=== PATIENT | male | born 1955 | race Caucasian/White ===

== ENCOUNTER → 2017-04-14 | Outpatient (CLI) | payer OTHER ==
[~2017-04-14] MED LIST: ASPI81TA28 PO; ATOR-24 PO; ATV5 PO; CYCL5TAB PO; FAMO20TA11 PO; Ibuprofen PO; METO25TA56 PO; PROC1TAB18 PO
[2017-04-14 15:15] LABS: BLOOD UREA NITROGEN 16 mg/dl (7-18); BUN/CREATININE RATIO 18.6 (10-20); CALCIUM 8.9 mg/dl (8.5-10.1); CARBON DIOXIDE 27 mmol/L (21-32); CHLORIDE 109 mmol/L (98-107); CREATININE 0.87 mg/dl (0.60-1.40); GLUCOSE 97 mg/dl (70-99); POTASSIUM 4.1 mmol/L (3.5-5.1); SODIUM 144 mmol/L (136-145)
[2017-04-14 15:18] LABS: CHOLESTEROL 168 mg/dl (0-200); CHOLESTEROL/HDL RATIO 4.3; HDL CHOLESTEROL 39 mg/dl; TRIGLYCERIDES 141 mg/dl (0-150); VERY LOW DENSITY LIPOPROT CALC 28 mg/dl
== END | disposition home or self-care (01) ==
LOC: C.LABSPEC 12:56
PROVIDERS: ATTEND Internal Medicine
DX: I25.10 Atherosclerotic heart disease of native coronary artery without angina pectoris (principal); E78.5 Hyperlipidemia, unspecified; Z00.00 Encounter for general adult medical examination without abnormal findings

== ENCOUNTER → 2017-05-26 | Outpatient (CLI) | payer OTHER | END | disposition home or self-care (01) | LOC: C.LABSPEC 15:03 | PROVIDERS: ATTEND Internal Medicine | DX: Z12.11 Encounter for screening for malignant neoplasm of colon (principal) ==

== ENCOUNTER → 2017-07-07 | Outpatient (CLI) | payer OTHER ==
--- NOTE | 2017-07-07 12:49 | DIAGNOSTIC IMAGING REPORT ---
PET/CT CLINICAL HISTORY: Head and neck cancer. TECHNIQUE: A PET/CT was performed from the skull base through the upper thighs following intravenous injection of 11.78 mCi of F 18 FDG IV. The injection was performed at 9:26 AM on July 07, 2017 and imaging began at 10:33 AM on July 07, 2017. Unenhanced CT was performed for attenuation correction purposes and anatomic localization. COMPARISON STUDY: PET/CT July 10, 2016. FINDINGS: Head and neck: No abnormal FDG uptake is identified within the neck. There is evidence for a previous right neck dissection. Postoperative appearance is unchanged since exam of July 10, 2016. Chest: No enlarged thoracic lymph nodes are present. The previously described FDG avid precarinal lymph node is stable in size. This lymph node is not enlarged. This lymph node has minimal FDG uptake with an SUV max of 2 which has diminished since prior exam of July 10, 2016 when the SUV max was 2.9. Mild radiotracer uptake within the AP window has also diminished. SUV max is now 2.7. It previously measured 3.6. There has been interval development of mild multifocal airspace opacity within the right upper lobe with an SUV max of 1.8. Underlying emphysema is noted. There is no pneumothorax or pleural effusion. A 4 mm perifissural nodule along the minor fissure is unchanged from earlier studies. This is benign. Abdomen and Pelvis: No abnormal FDG uptake is identified within the abdomen or the pelvis. There is no abdominal or pelvic lymphadenopathy. The abdominal aorta is ectatic, measuring 2.6 cm. This is unchanged. This extensive atherosclerotic plaque. Musculoskeletal: No suspicious skeletal uptake is identified. IMPRESSION: 1. No evidence for recurrent malignancy. 2. Mild precarinal and AP window FDG uptake which is diminished since exam of July 10, 2016. This is of doubtful significance but can be assessed on subsequent studies. 3. Interval development of mild multifocal airspace opacity within the right upper lobe with mild FDG uptake. This favors a mild infectious process. A follow up chest CT in 3 months to ensure resolution is recommended. Electronically signed by: Bret Ruiz M.D. 07/07/2017 12:48 PM Dictated Date/Time: 07/07/2017 12:33 PM
== END | disposition home or self-care (01) ==
LOC: C.PET 08:26
PROVIDERS: ATTEND Dentist Oral and Maxillofacial Pathology
DX: C76.0 Malignant neoplasm of head, face and neck (principal)

== ENCOUNTER → 2017-11-24 | Outpatient (CLI) | payer OTHER ==
[2017-11-24 15:03] LABS: BLOOD UREA NITROGEN 16 mg/dl (7-18); CALCIUM 9.3 mg/dl (8.5-10.1); CARBON DIOXIDE 29 mmol/L (21-32); CHOLESTEROL 155 mg/dl (0-200); CREATININE 0.84 mg/dl (0.60-1.40); GLUCOSE 99 mg/dl (70-99); LDL CHOLESTEROL (DIRECT) 107 mg/dl; POTASSIUM 4.5 mmol/L (3.5-5.1); SODIUM 141 mmol/L (136-145)
== END | disposition home or self-care (01) ==
LOC: C.LABSPEC 12:24
PROVIDERS: ATTEND Internal Medicine
DX: E78.5 Hyperlipidemia, unspecified (principal); I25.10 Atherosclerotic heart disease of native coronary artery without angina pectoris

== ENCOUNTER → 2018-06-06 | Outpatient (CLI) | payer OTHER ==
[2018-06-06 09:21] LABS: BLOOD UREA NITROGEN 14 mg/dl (7-18); CALCIUM 8.9 mg/dl (8.5-10.1); CARBON DIOXIDE 29 mmol/L (21-32); CHOLESTEROL 171 mg/dl (0-200); CREATININE 0.88 mg/dl (0.60-1.40); GLUCOSE 91 mg/dl (70-99); LDL CHOLESTEROL (DIRECT) 107 mg/dl; SODIUM 140 mmol/L (136-145)
== END | disposition home or self-care (01) ==
LOC: C.LAB 08:28
PROVIDERS: ATTEND Internal Medicine
DX: Z00.00 Encounter for general adult medical examination without abnormal findings (principal); E78.5 Hyperlipidemia, unspecified; I25.10 Atherosclerotic heart disease of native coronary artery without angina pectoris

== ENCOUNTER → 2018-06-09 | Outpatient (CLI) | payer OTHER ==
[2018-06-15 18:03] LABS: FECAL OCCULT BLOOD #1 NEGATIVE (NEGATIVE); FECAL OCCULT BLOOD #2 NEGATIVE (NEGATIVE); FECAL OCCULT BLOOD #3 NEGATIVE (NEGATIVE)
== END | disposition home or self-care (01) ==
LOC: C.LABSPEC 17:16
PROVIDERS: ATTEND Internal Medicine
DX: Z12.11 Encounter for screening for malignant neoplasm of colon (principal)

== ENCOUNTER 2021-03-03 04:00 | Inpatient (IN) ==
[2021-03-03] MEDS ORDERED: SODIUM CHLORIDE 0.9% 500 ML IV ONE (04:42)
[2021-03-03] MEDS ORDERED: ACETAMINOPHEN 325 MG TAB PO STA (04:42)
[2021-03-03] MEDS ORDERED: ONDANSETRON INJ 2 MG/ML 2 ML VIAL IV STA (05:04)
--- NOTE | 2021-03-03 05:04 | Emergency Department Note ---
Impression & Plan Hypoxia, Pneumonia due to COVID-19 virus ED Provider Note NAME: ELVIS SAM JR AGE: 66 SEX: M ARRIVES VIA: Walk-In INFORMANT: Patient ED PROVIDER(S): Joan Lemus DO CHIEF COMPLAINT: Chest pain and shortness of breath PLAN: Disposition: Admitted to the [facility] service Condition: Guarded MEDICAL DECISION MAKING: This is a 66-year-old male patient who presents to the emergency department with increasing shortness of breath and chest discomfort. The patient had an O2 saturation in the 70/80% range upon presentation to the emergency department. The patient did have a Covid exposure at work. He has not yet received the Covid vaccine. Triage Nursing notes reviewed and agree with them. Prior medical records reviewed Vital Signs: reviewed and remarkable for hypoxia, tachycardia, and fever Differential diagnosis: COVID-19, pneumonia, PE, bronchitis ER treatment provided: Tylenol, IV normal saline, IV Decadron Diagnostics interpreted by me: ECG: Normal sinus rhythm at a rate of [address] segment elevation or signs of ischemia. There is no ectopy. Cardiac Monitoring: Normal sinus rhythm at a rate of 99. Laboratory studies: See below Imaging studies: As per my interpretation Portable chest x-ray: Bilateral airspace opacities with the left being greater than the right. This looks concerning for Covid pneumonia. HPI: 66/M arrives for evaluation of shortness of breath and chest discomfort. Patient states that he developed a sensation of shortness of breath and a chest cold yesterday morning. This seemed to worsen throughout the day. Tonight, the patient felt as if he could not sleep because he was becoming increasingly short of breath. The patient admits that he does not wear a mask at work and one of his coworkers did have COVID-19. The patient describes having a sensation in his chest as if he has a cold in his chest. He denies any associated nausea or diaphoresis. He denies any previous history of bronchitis or pneumonia. ROS: See above HPI for pertinent positives & negatives. A total of 10 systems reviewed and were otherwise negative. PAST MEDICAL HISTORY:Prostate enlargement PAST SURGICAL HISTORY:See Below FAMILY HISTORY:See Below SOCIAL HISTORY:See Below HOME MEDICATIONS:See list ALLERGIES:See list VITALS:See Below PHYSICAL EXAMINATION: HEENT: Head - normocephalic and atraumatic Pupils are equal, round, and reactive to light. Extraocular eye muscles are intact, and sclera are anicteric. Nose - moist nasal mucosa without discharge. Mouth - moist buccal mucosa. Oropharynx is nonerythematous and there is no tonsillar exudate or edema noted. Neck: Supple; no JVD, nuchal rigidity, cervical lymphadenopathy, or auscultated bruits. Heart: Tachycardic rate and regular rhythm. There is a normal S1 and S2 with no murmurs, clicks, or gallops appreciated. Lungs: Clear to auscultation bilaterally with no wheezes, rales, or rhonchi. Abdomen: Soft, completely nontender, nondistended, with good bowel sounds. There are no palpable pulsatile masses or hepatosplenomegaly. There is no guarding, rigidity, or rebound noted. Extremities: No evidence of cyanosis, clubbing, or edema. There are easily palpable peripheral pulses. Skin: warm and dry with good turgor and no rashes. ED COURSE: Times/Reassessments: 0425: The patient was evaluated in room C10. A septic protocol was performed. I do not complete PPE as the patient was in Covid precautions based on his history. An order was placed for continuous cardiac monitoring. The patient was in a sinus tachycardia at a rate of 102. A twelve-lead EKG was obtained. The patient was bolused with IV normal saline solution. He was given oral Tylenol for his fever. A chest x-ray was obtained. 0500: Patient appears comfortable at this time on supplemental oxygen. 0535 I reevaluated the patient at this time. His O2 saturations remained stable on supplemental oxygen. I reviewed the laboratory studies resulted so far with the patient. He was anxious to drink water. The patient was given IV Decadron. 0545: I discussed the case with Dr. Pinon from the [facility] hospitalist group and they will evaluate for further management. 0600: I spoke with patient again and answer some questions for him. He is comfortable at this time. I have personally spent greater than 70 minutes of critical care time in the direct management of this patient. This includes bedside care, interpretation of diagnostic studies, and testing, discussion with consultants, patient, and family members, and other required patient management activities. This 70 minutes is in excess of all separately billable procedures. Joan Lemus, DO Past Med/Surg History Medical History (Updated 03/03/21 @ 08:20 by Joan Lemus DO) Anxiety CAD (coronary artery disease) s/p ID [id number] with BMS x 2. Preserved EF. Was discharged from cardio in 2013, to follow-up only on PRN basis. 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 Urinary symptom or sign Surgical History H/O removal of neck cyst 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 History of appendectomy History of cardiac cath 2011 History of colonoscopy History of cystoscopy with stone basketing History of radical neck dissection for SCC History of tonsillectomy Hx of heart artery stent x2 (2011) Hx of inguinal hernia repair Left Family History Father Heart disease Mother FH: kidney cancer Other No family history of adverse response to anesthesia Social History Smoking Status: Former smoker Tobacco Type: Cigarettes Age Started Using Tobacco: 17; Age Quit Using Tobacco: 55; packs per day: 1; Years Smoked: 38; Second Hand Exposure: Yes; Hx Alcohol Use: No Hx Substance Use: No Preferred Language: Niuean Communication Ability: Effective Visual Impairment: No Limitations Hearing Ability: Normal Forensic Dna Analyst Required: No Beliefs That Will Affect Care: None marital status: Current Living Situation: Family Current Living Situation Comment: youngest daughter, her and two teenagers live with him current occupational status: employed How many Children do You have: 2 Feels Safe at Home: Yes Childhood Exposure to Second-Hand Smoke: Yes Diet Comment: sweat glands destroyed with RT, must drink water constantly and moisturize caffeine: Yes (tea 3 cups per day) during the past year weight has: remained stable Dental Care, Regularly: Yes Physical Activity Frequency: 3-4 Times per Week Physical Activity Frequency Comment: climbs stairs 300/day Seatbelt Use: always Sunscreen Use: Yes (irregularly, but stays out of the sun for the most part) Assistive Devices: Glasses Allergies Allergies Allergy/AdvReac Type Severity Reaction Status Date / Time pollen extracts Allergy Unknown Watery Verified 01/19/21 12:10 eyes, burning sinsus No Known Drug Allergies Allergy Verified 01/19/21 12:10 Home Meds Home Medications Medication Instructions Recorded Confirmed aspirin [Aspir-81] 81 mg PO QAM 10/30/18 03/03/21 atorvastatin 80 mg PO HS 10/30/18 03/03/21 baclofen 10 mg PO TID PRN 10/30/18 03/03/21 lorazepam 0.5 mg PO TID PRN 10/30/18 03/03/21 zinc 50 mg tablet 50 mg PO QAM 09/13/20 03/03/21 prednisone 5 mg tablet 5 mg PO DAILY 02/28/21 03/03/21 Previous Rx's Medication Instructions Recorded tamsulosin 0.4 mg capsule 0.4 mg PO BID #60 cap 01/02/21 hydrocodone 10 mg-acetaminophen 1 tab PO Q6H PRN #30 tab 01/18/21 325 mg tablet oxybutynin chloride 5 mg tablet 5 mg PO TID PRN #90 tab 02/13/21 nystatin 100,000 unit/mL oral 5 ml PO QID 10 Days #200 ml 02/20/21 suspension ampicillin 500 mg capsule 500 mg PO QID 10 Days #40 cap 02/23/21 tramadol 50 mg tablet 50 mg PO Q8H PRN #60 tab 02/28/21 Results & Data (ED) Vital Signs Vital Signs - 24 hr 03/03/21 04:08 03/03/21 04:30 03/03/21 05:00 Temperature 37.7 C H Temperature Source Temporal Artery Scan Pulse Rate 112 H 102 H 100 H Pulse Rate from SpO2 Sensor 102 H 100 H Respiratory Rate 18 22 22 Respiratory Effort / Characteristics Non-Labored Spontaneous Respiratory Depth Normal Respiratory Pattern Regular Blood Pressure 124/79 134/76 126/84 Blood Pressure Mean 94 95 98 Blood Pressure Position Sitting Pulse Oximetry 83 L 91 87 L Oxygen Delivery Method Room Air Nasal Cannula Room Air Oxygen Flow Rate 3 3 Sepsis Recent Fever Within 48 Hours Yes Sepsis New/Unexplained Change in Mental Status No Sepsis Action Taken by Nursing No Action Required 03/03/21 05:30 03/03/21 05:32 03/03/21 06:00 Temperature Temperature Source Pulse Rate 98 H 91 H Pulse Rate from SpO2 Sensor 98 H 90 Respiratory Rate 19 22 21 Respiratory Effort / Characteristics Respiratory Depth Respiratory Pattern Blood Pressure 130/88 139/94 Blood Pressure Mean 102 109 Blood Pressure Position Pulse Oximetry 92 91 98 Oxygen Delivery Method Nasal Cannula Nasal Cannula Oxymask Oxygen Flow Rate 3 4 10 Sepsis Recent Fever Within 48 Hours Sepsis New/Unexplained Change in Mental Status Sepsis Action Taken by Nursing 03/03/21 06:28 03/03/21 06:30 03/03/21 06:45 Temperature Temperature Source Pulse Rate 92 H 89 Pulse Rate from SpO2 Sensor 93 H 89 Respiratory Rate 22 20 20 Respiratory Effort / Characteristics Spontaneous Labored Short of Breath Respiratory Depth Respiratory Pattern Blood Pressure 134/84 126/81 Blood Pressure Mean 100 96 Blood Pressure Position Pulse Oximetry 98 97 96 Oxygen Delivery Method Oxymask Oxymask Oxymask Oxygen Flow Rate 10 10 10 Sepsis Recent Fever Within 48 Hours Sepsis New/Unexplained Change in Mental Status Sepsis Action Taken by Nursing 03/03/21 06:46 03/03/21 06:48 03/03/21 07:00 Temperature Temperature Source Pulse Rate 86 84 Pulse Rate from SpO2 Sensor 85 84 Respiratory Rate 12 12 Respiratory Effort / Characteristics Spontaneous Short of Breath Respiratory Depth Respiratory Pattern Blood Pressure 135/83 Blood Pressure Mean 100 Blood Pressure Position Pulse Oximetry 96 96 96 Oxygen Delivery Method Oxymask Oxygen Flow Rate 10 Sepsis Recent Fever Within 48 Hours Sepsis New/Unexplained Change in Mental Status Sepsis Action Taken by Nursing 03/03/21 07:01 03/03/21 07:15 03/03/21 07:30 Temperature Temperature Source Pulse Rate 82 86 88 Pulse Rate from SpO2 Sensor 83 86 87 Respiratory Rate 14 16 16 Respiratory Effort / Characteristics Respiratory Depth Respiratory Pattern Blood Pressure 121/83 140/83 Blood Pressure Mean 95 102 Blood Pressure Position Pulse Oximetry 96 96 95 Oxygen Delivery Method Oxygen Flow Rate Sepsis Recent Fever Within 48 Hours Sepsis New/Unexplained Change in Mental Status Sepsis Action Taken by Nursing 03/03/21 07:31 03/03/21 07:45 03/03/21 07:50 Temperature Temperature Source Pulse Rate 90 101 H 121 H Pulse Rate from SpO2 Sensor 91 H 101 H 101 H Respiratory Rate 16 20 27 H Respiratory Effort / Characteristics Respiratory Depth Respiratory Pattern Blood Pressure 146/95 H 133/86 Blood Pressure Mean 112 101 Blood Pressure Position Pulse Oximetry 94 92 94 Oxygen Delivery Method Oxygen Flow Rate Sepsis Recent Fever Within 48 Hours Sepsis New/Unexplained Change in Mental Status Sepsis Action Taken by Nursing 03/03/21 07:57 Temperature 37.1 C Temperature Source Oral Pulse Rate Pulse Rate from SpO2 Sensor Respiratory Rate Respiratory Effort / Characteristics Respiratory Depth Respiratory Pattern Blood Pressure Blood Pressure Mean Blood Pressure Position Pulse Oximetry Oxygen Delivery Method Oxygen Flow Rate Sepsis Recent Fever Within 48 Hours Sepsis New/Unexplained Change in Mental Status Sepsis Action Taken by Nursing Laboratory Data Result diagrams: 03/03/21 04:35 03/03/21 04:35 Lab Results 03/03/21 03/03/21 03/03/21 Range/Units 04:35 04:35 04:35 WBC 1.75 L (4.8-10.8) K/uL RBC 4.24 L (4.7-6.1) M/uL Hgb 12.8 L (14.0-18.0) g/dL Hct 37.0 L (42-52) % MCV 87.3 (80-100) fL MCH 30.2 (25-34) pg MCHC 34.6 (32-36) g/dL RDW Std Deviation 44.0 (36.4-46.3) fL RDW Coeff of Maikel 13.7 (11.5-14.5) % Plt Count 75 L (130-400) K/uL MPV 10.1 (7.4-10.4) fL Immature Gran % (Auto) 1.7 % Neut % (Auto) 73.7 % Lymph % (Auto) 12.6 % Bucks % (Auto) 10.9 % Eos % (Auto) 1.1 % Baso % (Auto) 0.0 % Neut # (Auto) 1.29 L (1.4-6.5) K/uL Lymph # (Auto) 0.22 L (1.2-3.4) K/uL Bucks # (Auto) 0.19 (0.11-0.59) K/uL Eos # (Auto) 0.02 (0-0.5) K/uL Baso # (Auto) 0.00 (0-0.2) K/uL Immature Gran # (Auto) 0.03 H (0.00-0.02) K/uL Platelet Estimate Decreased L (Normal) RBC Morphology Unremarkable PT 9.6 (9.0-12.0) Seconds INR 0.9 (0.9-1.1) APTT 28.2 (21.0-31.0) Seconds PTT Ratio 1.1 Sodium 143 (136-145) mmol/L Potassium 3.8 (3.5-5.1) mmol/L Chloride 112 H (98-107) mmol/L Carbon Dioxide 28 (21-32) mmol/L Anion Gap 3.0 (3-11) BUN 10 (7-18) mg/dl Creatinine 0.73 (0.6-1.4) mg/dl Est Cr Clr Drug Dosing 91.0 ml/min Est GFR ( Amer) 112.8 Est GFR (Non-Af Amer) 97.3 BUN/Creatinine Ratio 13.4 (10-20) Glucose 110 H (70-99) mg/dl Lactate (0.4-2.0) mmol/L Calcium 8.4 L (8.5-10.1) mg/dl Magnesium 1.9 (1.8-2.4) mg/dl Total Bilirubin 0.5 (0.2-1) mg/dl AST 42 H (15-37) U/L ALT 40 (12-78) U/L Alkaline Phosphatase 108 (45-117) U/L C-Reactive Protein (0-0.29) mg/dl Total Protein 6.1 L (6.4-8.2) gm/dl Albumin 2.8 L (3.4-5.0) gm/dl Globulin 3.3 (2.5-4.0) gm/dl Albumin/Globulin Ratio 0.8 L (0.9-2) COVID-19 Eval Order SARS-CoV-2 (PCR) (Negative) Influenza Type A (PCR) (Neg) Influenza Type B (PCR) (Neg) RSV (RT-PCR) (Neg) 03/03/21 03/03/21 03/03/21 Range/Units 04:35 04:35 04:43 WBC (4.8-10.8) K/uL RBC (4.7-6.1) M/uL Hgb (14.0-18.0) g/dL Hct (42-52) % MCV (80-100) fL MCH (25-34) pg MCHC (32-36) g/dL RDW Std Deviation (36.4-46.3) fL RDW Coeff of Maikel (11.5-14.5) % Plt Count (130-400) K/uL MPV (7.4-10.4) fL Immature Gran % (Auto) % Neut % (Auto) % Lymph % (Auto) % Bucks % (Auto) % Eos % (Auto) % Baso % (Auto) % Neut # (Auto) (1.4-6.5) K/uL Lymph # (Auto) (1.2-3.4) K/uL Bucks # (Auto) (0.11-0.59) K/uL Eos # (Auto) (0-0.5) K/uL Baso # (Auto) (0-0.2) K/uL Immature Gran # (Auto) (0.00-0.02) K/uL Platelet Estimate (Normal) RBC Morphology PT (9.0-12.0) Seconds INR (0.9-1.1) APTT (21.0-31.0) Seconds PTT Ratio Sodium (136-145) mmol/L Potassium (3.5-5.1) mmol/L Chloride (98-107) mmol/L Carbon Dioxide (21-32) mmol/L Anion Gap (3-11) BUN (7-18) mg/dl Creatinine (0.6-1.4) mg/dl Est Cr Clr Drug Dosing ml/min Est GFR ( Amer) Est GFR (Non-Af Amer) BUN/Creatinine Ratio (10-20) Glucose (70-99) mg/dl Lactate 0.8 (0.4-2.0) mmol/L Calcium (8.5-10.1) mg/dl Magnesium (1.8-2.4) mg/dl Total Bilirubin (0.2-1) mg/dl AST (15-37) U/L ALT (12-78) U/L Alkaline Phosphatase (45-117) U/L C-Reactive Protein 11.40 H (0-0.29) mg/dl Total Protein (6.4-8.2) gm/dl Albumin (3.4-5.0) gm/dl Globulin (2.5-4.0) gm/dl Albumin/Globulin Ratio (0.9-2) COVID-[address] Eval [address] CovFluRsv at [facility] SARS-CoV-2 (PCR) (Negative) Influenza Type A (PCR) (Neg) Influenza Type B (PCR) (Neg) RSV (RT-PCR) (Neg) 05/08/21 Range/Units 04:43 WBC (4.8-10.8) K/uL RBC (4.7-6.1) M/uL Hgb (14.0-18.0) g/dL Hct (42-52) % MCV (80-100) fL MCH (25-34) pg MCHC (32-36) g/dL RDW Std Deviation (36.4-46.3) fL RDW Coeff of Maikel (11.5-14.5) % Plt Count (130-400) K/uL MPV (7.4-10.4) fL Immature Gran % (Auto) % Neut % (Auto) % Lymph % (Auto) % Bucks % (Auto) % Eos % (Auto) % Baso % (Auto) % Neut # (Auto) (1.4-6.5) K/uL Lymph # (Auto) (1.2-3.4) K/uL Bucks # (Auto) (0.11-0.59) K/uL Eos # (Auto) (0-0.5) K/uL Baso # (Auto) (0-0.2) K/uL Immature Gran # (Auto) (0.00-0.02) K/uL Platelet Estimate (Normal) RBC Morphology PT (9.0-12.0) Seconds INR (0.9-1.1) APTT (21.0-31.0) Seconds PTT Ratio Sodium (136-145) mmol/L Potassium (3.5-5.1) mmol/L Chloride (98-107) mmol/L Carbon Dioxide (21-32) mmol/L Anion Gap (3-11) BUN (7-18) mg/dl Creatinine (0.6-1.4) mg/dl Est Cr Clr Drug Dosing ml/min Est GFR ( Amer) Est GFR (Non-Af Amer) BUN/Creatinine Ratio (10-20) Glucose (70-99) mg/dl Lactate (0.4-2.0) mmol/L Calcium (8.5-10.1) mg/dl Magnesium (1.8-2.4) mg/dl Total Bilirubin (0.2-1) mg/dl AST (15-37) U/L ALT (12-78) U/L Alkaline Phosphatase (45-117) U/L C-Reactive Protein (0-0.29) mg/dl Total Protein (6.4-8.2) gm/dl Albumin (3.4-5.0) gm/dl Globulin (2.5-4.0) gm/dl Albumin/Globulin Ratio (0.9-2) COVID-19 Eval Order SARS-CoV-2 (PCR) POSITIVE A* (Negative) Influenza Type A (PCR) Negative (Neg) Influenza Type B (PCR) Negative (Neg) RSV (RT-PCR) Negative (Neg) Administered Medications Sodium Chloride (Nss) 500 mls @ 125 mls/hr IV .Q4H DONAL Stop: 04/02/21 05:29 Last Admin: 03/03/21 05:58 Dose: 125 mls/hr Documented by: [id number] Discontinued Medications Acetaminophen (Acetaminophen 325 Mg Tab) 650 mg PO NOW STA Stop: 03/03/21 04:43 Last Admin: 03/03/21 05:08 Dose: 650 mg Documented by: [id number] Dexamethasone (Dexamethasone Sod Inj 4 Mg/Ml Vial) 10 mg IV NOW STA Stop: 03/03/21 05:27 Last Admin: 03/03/21 05:58 Dose: 10 mg Documented by: [id number] Sodium Chloride (Nss) 500 mls @ 999 mls/hr IV .Q31M ONE Stop: 03/03/21 05:12 Last Infusion: 03/03/21 05:44 Dose: 0 mls/hr Documented by: [id number] Admin: 03/03/21 05:10 Dose: 999 mls/hr Documented by: [id number] Ondansetron HCl (Ondansetron Inj 2 Mg/Ml 2 Ml Vial) 4 mg IV NOW STA Stop: 03/03/21 05:05 Last Admin: 03/03/21 05:09 Dose: 4 mg Documented by: [id number] Imaging Data Radiologist's Impression: Chest X-Ray 03/03/21 04:42 XR chest 1V portable CLINICAL HISTORY: SEPSIS COMPARISON STUDY: Chest radiograph November 15, 2020. FINDINGS: Lung volumes are normal. There is no pneumothorax or pleural effusion. Moderate bilateral airspace opacities and interstitial thickening are noted, greater within the left lung. Cardiac size is at the upper limits of normal. IMPRESSION: Moderate bilateral airspace opacities and interstitial thickening, greater within the left lung. The findings favor an infectious process such as viral pneumonia. Radiographic follow-up to ensure resolution is recommended. ACT 112: Negative or not required by law. Electronically signed by: Bret Ruiz M.D. 03/03/2021 7:20 AM Discharge Plan Visit Data Chief Complaint: Illness Stated Complaint: NAUSEA,COUGH,DIARRHEA,FEVER,CHILLS ED Provider: Joan Lemus Discharge Problem: Hypoxia, Pneumonia due to COVID-19 virus Forms Stand Alone Forms: [facility] Prescriptions Prescriptions: No Action tamsulosin 0.4 mg capsule 0.4 mg PO BID Qty: 60 RF: 5 prednisone 5 mg tablet 5 mg PO DAILY RF: 0 tramadol 50 mg tablet 50 mg PO Q8H PRN (Reason: dysuria) Qty: 60 RF: 1 zinc 50 mg tablet 50 mg PO QAM RF: 0 hydrocodone-acetaminophen 10-325 mg tablet 1 tab PO Q6H PRN (Reason: pain) Qty: 30 RF: 0 oxybutynin chloride 5 mg tablet 5 mg PO TID PRN (Reason: bladder spasms) Qty: 90 RF: 0 nystatin 100,000 unit/mL suspension 5 ml PO QID 10 Days Qty: 200 RF: 2 ampicillin 500 mg capsule 500 mg PO QID 10 Days Qty: 40 RF: 0 atorvastatin 80 mg tablet 80 mg PO HS RF: 0 aspirin [Aspir-81] 81 mg Tablet,Delayed Release (Dr/Ec) 81 mg PO QAM RF: 0 lorazepam 0.5 mg tablet 0.5 mg PO TID PRN (Reason: Anxiety) RF: 0 baclofen 10 mg tablet 10 mg PO TID PRN (Reason: Pain) RF: 0
[2021-03-03 05:11] LABS: Albumin Level 2.8 gm/dl (3.4-5.0); BUN Creatinine Ratio 13.4 (10-20); Calcium 8.4 mg/dl (8.5-10.1); Est GFR (African American) 112.8; Est GFR (Non-African American) 97.3; INR 0.9 (0.9-1.1); Magnesium 1.9 mg/dl (1.8-2.4); Partial Thromboplastin Ratio 1.1; Partial Thromboplastin Time 28.2 Seconds (21.0-31.0); Potassium 3.8 mmol/L (3.5-5.1); Prothrombin Time 9.6 Seconds (9.0-12.0)
[2021-03-03 05:13] LABS: Albumin Globulin Ratio 0.8 (0.9-2); Bilirubin,Total 0.5 mg/dl (0.2-1); Globulin 3.3 gm/dl (2.5-4.0); Total Protein 6.1 gm/dl (6.4-8.2)
[2021-03-03 05:19] LABS: Hemoglobin 12.8 g/dL (14.0-18.0); Mean Corpuscular Hemoglobin 30.2 pg (25-34); Mean Corpuscular Hgb Conc 34.6 g/dL (32-36); Mean Corpuscular Volume 87.3 fL (80-100); Mean Platelet Volume 10.1 fL (7.4-10.4); Platelet Count 75 K/uL (130-400); RDW Coefficient of Variation 13.7 % (11.5-14.5); Red Blood Count 4.24 M/uL (4.7-6.1); White Blood Count 1.75 K/uL (4.8-10.8)
[2021-03-03] MEDS ORDERED: DEXAMETHASONE SOD INJ 4 MG/ML VIAL IV STA (05:26)
[2021-03-03 05:53] LABS: Influenza A virus by PCR Negative (Neg); Influenza B virus by PCR Negative (Neg); RSV by PCR Negative (Neg)
[2021-03-03] MEDS: SODIUM CHLORIDE 0.9% 500 ML IV SCH ×2 (05:58→10:47)
[2021-03-03 06:08] LABS: Eosinophils # (auto) 0.02 K/uL (0-0.5); Eosinophils % (auto) 1.1 %; Immature Granulocytes # (auto) 0.03 K/uL (0.00-0.02); Immature Granulocytes % (auto) 1.7 %; Lymphocytes # (auto) 0.22 K/uL (1.2-3.4); Lymphocytes % (auto) 12.6 %; Monocytes # (auto) 0.19 K/uL (0.11-0.59); Monocytes % (auto) 10.9 %; Neutrophils # (auto) 1.29 K/uL (1.4-6.5); Neutrophils % (auto) 73.7 %; Platelet Estimate Decreased (Normal); RBC Morphology Unremarkable
[2021-03-03 06:13] LABS: SARS CoV2 RNA(COVID-19) InHosp POSITIVE (Negative)
--- NOTE | 2021-03-03 06:13 | History & Physical Report ---
Date of Service March 03, 2021 Assessment & Plan (1) COVID-19: Presumed positive. Awaiting results of Covid testing -Maintain isolation precautions -Check Procalcitonin, BNP, Ddimer -Dexamethasone 6mg IV daily -Remdesivir per protocol -Lovenox 40 BID -Tylenol PRN -Robitussing PRN -Albuterol PRN Present on Admission?: Yes (2) Davis catheter in place: For urinary retention - -Continue Flomax -Routine catheter care q shift Present on Admission?: Yes (3) CAD (coronary artery disease): No CP -Continue home medications, ASA, Atorvastatin, Metoprolol F/E/N - Heplock. Electrolytes WNL, check PO4 x 1, Heart healthy diet as tolerated Ppx - Lovenox 40 BID Code- Full Dispo- Admit to medical with telemetry History of Present Illness Chief Complaint: SOB Primary Care Provider: Jerry Christina MD 66yo C male with history of CAD, Prostate CA s/p seed placement, indwelling Davis presenting with SOB. Symptoms of weakness/fatigue/cough/SOB and fever began 5 days ago. Progressive. Today with worsening cough and chest tightness associated with cough. Diarrhea. No additional complaints 83% on room air in the ER. Improved with supplemental O2 - currently 90-91% on 5L by NC - desaturates to 88-89% with speech or movement ER course: Dexamethasone 10mg IV, NSS, Zofran, Tylenol Allergies Allergy/AdvReac Type Severity Reaction Status Date / Time pollen extracts Allergy Unknown Watery Verified 01/19/21 12:10 eyes, burning sinsus No Known Drug Allergies Allergy Verified 01/19/21 12:10 Home Medications Medication Instructions Recorded Confirmed Type aspirin [Aspir-81] 81 mg PO QAM 10/30/18 01/19/21 History atorvastatin 80 mg PO HS 10/30/18 01/19/21 History baclofen 10 mg PO TID PRN 10/30/18 01/19/21 History lorazepam 0.5 mg PO TID PRN 10/30/18 01/19/21 History zinc 50 mg tablet 50 mg PO QAM 09/13/20 01/19/21 History tamsulosin 0.4 mg capsule 0.4 mg PO BID #60 cap 01/02/21 01/19/21 Rx metoprolol succinate 25 mg 12.5 mg PO BID tab 01/17/21 01/19/21 History tablet,extended release 24 hr hydrocodone 10 mg-acetaminophen 1 tab PO Q6H PRN #30 tab 01/18/21 01/19/21 Rx 325 mg tablet oxybutynin chloride 5 mg tablet 5 mg PO TID PRN #90 tab 02/13/21 Rx nystatin 100,000 unit/mL oral 5 ml PO QID 10 Days #200 ml 02/20/21 Rx suspension ampicillin 500 mg capsule 500 mg PO QID 10 Days #40 cap 02/23/21 02/23/21 Rx prednisone 5 mg tablet 5 mg PO DAILY 02/28/21 02/28/21 History tramadol 50 mg tablet 50 mg PO Q8H PRN #60 tab 02/28/21 02/28/21 Rx Past Med/Surg History Medical History Anxiety CAD (coronary artery disease) s/p NH 2011 with BMS x 2. Preserved EF. Was discharged from cardio in 2013, to follow-up only on PRN basis. 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 Urinary symptom or sign Surgical History H/O removal of neck cyst 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 History of appendectomy History of cardiac cath 2011 History of colonoscopy History of cystoscopy with stone basketing History of radical neck dissection for SCC History of tonsillectomy Hx of heart artery stent x2 (2011) Hx of inguinal hernia repair Left Family History Father Heart disease Mother FH: kidney cancer Other No family history of adverse response to anesthesia Social History Smoking Status: Former smoker Tobacco Type: Cigarettes Age Started Using Tobacco: 17; Age Quit Using Tobacco: 55; packs per day: 1; Years Smoked: 38; Second Hand Exposure: Yes; Hx Alcohol Use: No Hx Substance Use: No Preferred Language: Frisian Communication Ability: Effective Visual Impairment: No Limitations Hearing Ability: Normal [employer] Required: No Beliefs That Will Affect Care: None marital status: Current Living Situation: Family Current Living Situation Comment: youngest daughter, her and two teenagers live with him current occupational status: employed How many Children do You have: 2 Feels Safe at Home: Yes Childhood Exposure to Second-Hand Smoke: Yes Diet Comment: sweat glands destroyed with RT, must drink water constantly and moisturize caffeine: Yes (tea 3 cups per day) during the past year weight has: remained stable Dental Care, Regularly: Yes Physical Activity Frequency: 3-4 Times per Week Physical Activity Frequency Comment: climbs stairs 300/day Seatbelt Use: always Sunscreen Use: Yes (irregularly, but stays out of the sun for the most part) Assistive Devices: Glasses Review of Systems Review of Systems: All systems reviewed & are unremarkable except as noted in HPI & below Physical Exam Physical Exam: General: patient resting comfortably, NAD, non-toxic in appearance, AA&O x 4 Skin: warm, dry, intact, no rashes or lesions HEENT: NC/AT, PERRL, EOMI, anicteric sclera, conjunctiva without injection, external ear normal to inspection and nontender, nares patent, moist mucus membranes, dentition intact, no oropharyngeal lesions, neck supple, trachea midline, no LAD, no thyromegaly, no JVD Heart: +S1/S2, regular, no m/r/g Lungs: equal air entry bilaterally, no rales/rhonchi/wheezes Abd: +BS, soft, NT/ND, no masses/organomegaly/ascites, Davis in place Ext: warm, 2+ pulses in UE/LE bilaterally, no clubbing/cyanosis or edema Neuro: nonfocal, patient AA&O x 4, speech intact, no facial droop, moving all extremities on command with equal strength 5/5 Results & Data Results & Data ([facility]) Vital Signs (Past 12 Hours) Vital Signs Temp Pulse Resp BP Pulse Ox 03/03/21 05:32 22 91 03/03/21 05:00 100 H 22 126/84 87 L 03/03/21 04:30 102 H 22 134/76 91 03/03/21 04:08 37.7 C H 112 H 18 124/79 83 L Laboratory Results Lab Results 03/03/21 03/03/2121 Range/Units 04:35 04:35 04:35 WBC 1.75 L (4.8-10.8) K/uL RBC 4.24 L (4.7-6.1) M/uL Hgb 12.8 L (14.0-18.0) g/dL Hct 37.0 L (42-52) % MCV 87.3 (80-100) fL MCH 30.2 (25-34) pg MCHC 34.6 (32-36) g/dL RDW Std Deviation 44.0 (36.4-46.3) fL RDW Coeff of Maikel 13.7 (11.5-14.5) % Plt Count 75 L (130-400) K/uL MPV 10.1 (7.4-10.4) fL Immature Gran % (Auto) 1.7 % Neut % (Auto) 73.7 % Lymph % (Auto) 12.6 % [place] % (Auto) 10.9 % Eos % (Auto) 1.1 % Baso % (Auto) 0.0 % Neut # (Auto) 1.29 L (1.4-6.5) K/uL Lymph # (Auto) 0.22 L (1.2-3.4) K/uL [place] # (Auto) 0.19 (0.11-0.59) K/uL Eos # (Auto) 0.02 (0-0.5) K/uL Baso # (Auto) 0.00 (0-0.2) K/uL Immature Gran # (Auto) 0.03 H (0.00-0.02) K/uL Platelet Estimate Decreased L (Normal) RBC Morphology Unremarkable PT 9.6 (9.0-12.0) Seconds INR 0.9 (0.9-1.1) APTT 28.2 (21.0-31.0) Seconds PTT Ratio 1.1 Sodium 143 (136-145) mmol/L Potassium 3.8 (3.5-5.1) mmol/L Chloride 112 H (98-107) mmol/L Carbon Dioxide 28 (21-32) mmol/L Anion Gap 3.0 (3-11) BUN 10 (7-18) mg/dl Creatinine 0.73 (0.6-1.4) mg/dl Est Cr Clr Drug Dosing 91.0 ml/min Est GFR ( Amer) 112.8 Est GFR (Non-Af Amer) 97.3 BUN/Creatinine Ratio 13.4 (10-20) Glucose 110 H (70-99) mg/dl Lactate (0.4-2.0) mmol/L Calcium 8.4 L (8.5-10.1) mg/dl Magnesium 1.9 (1.8-2.4) mg/dl Total Bilirubin 0.5 (0.2-1) mg/dl AST 42 H (15-37) U/L ALT 40 (12-78) U/L Alkaline Phosphatase 108 (45-117) U/L Total Protein 6.1 L (6.4-8.2) gm/dl Albumin 2.8 L (3.4-5.0) gm/dl Globulin 3.3 (2.5-4.0) gm/dl Albumin/Globulin Ratio 0.8 L (0.9-2) COVID-19 Eval Order 03/03/21 03/03/21 Range/Units 04:35 04:43 WBC (4.8-10.8) K/uL RBC (4.7-6.1) M/uL Hgb (14.0-18.0) g/dL Hct (42-52) % MCV (80-100) fL MCH (25-34) pg MCHC (32-36) g/dL RDW Std Deviation (36.4-46.3) fL RDW Coeff of Maikel (11.5-14.5) % Plt Count (130-400) K/uL MPV (7.4-10.4) fL Immature Gran % (Auto) % Neut % (Auto) % Lymph % (Auto) % [place] % (Auto) % Eos % (Auto) % Baso % (Auto) % Neut # (Auto) (1.4-6.5) K/uL Lymph # (Auto) (1.2-3.4) K/uL [place] # (Auto) (0.11-0.59) K/uL Eos # (Auto) (0-0.5) K/uL Baso # (Auto) (0-0.2) K/uL Immature Gran # (Auto) (0.00-0.02) K/uL Platelet Estimate (Normal) RBC Morphology PT (9.0-12.0) Seconds INR (0.9-1.1) APTT (21.0-31.0) Seconds PTT Ratio Sodium (136-145) mmol/L Potassium (3.5-5.1) mmol/L Chloride (98-107) mmol/L Carbon Dioxide (21-32) mmol/L Anion Gap (3-11) BUN (7-18) mg/dl Creatinine (0.6-1.4) mg/dl Est Cr Clr Drug Dosing ml/min Est GFR ( Amer) Est GFR (Non-Af Amer) BUN/Creatinine Ratio (10-20) Glucose (70-99) mg/dl Lactate 0.8 (0.4-2.0) mmol/L Calcium (8.5-10.1) mg/dl Magnesium (1.8-2.4) mg/dl Total Bilirubin (0.2-1) mg/dl AST (15-37) U/L ALT (12-78) U/L Alkaline Phosphatase (45-117) U/L Total Protein (6.4-8.2) gm/dl Albumin (3.4-5.0) gm/dl Globulin (2.5-4.0) gm/dl Albumin/Globulin Ratio (0.9-2) COVID-19 Eval Order [facility]FluRsv at [facility] Code Status & VTE Plan VTE Prophylaxis Plan VTE Prophylaxis will be ordered: Yes PG Care Time/CCT Total # of Minutes Spent Total Time Spent with Patient: Total time spent is greater than 50% in coordination of care (as documented) at patient's floor/unit and/or counseling patient: Coding Level of Care Code 80949 Initial Inpt Care Lvl 2 Diagnoses COVID-19 U07.[address] Z97.8 CAD (coronary artery disease) I25.10 Coronary Disease-Associated Artery/Lesion type: [place] artery [place] vs. transplanted heart: [place] heart Associated angina: without angina (1) CAD (coronary artery disease) Coronary Disease-Associated Artery/Lesion type: [place] artery [place] vs. transplanted heart: [place] heart Associated angina: without angina Qualified Code(s): I25.10 - Atherosclerotic heart disease of [place] coronary artery without angina pectoris
--- NOTE | 2021-03-03 07:21 | XRay Report ---
XR chest 1V portable CLINICAL HISTORY: SEPSIS COMPARISON STUDY: Chest radiograph November 15, 2020. FINDINGS: Lung volumes are normal. There is no pneumothorax or pleural effusion. Moderate bilateral a irspace opacities and interstitial thickening are noted, greater within the left lung. Cardiac size i s at the upper limits of normal. IMPRESSION: Moderate bilateral airspace opacities and interstitial thickening, greater within the le ft lung. The findings favor an infectious process such as viral pneumonia. Radiographic follow-up to ensure resolution is recommended. ACT 112: Negative or not required by law. Electronically signed by: Bret Ruiz M.D. 03/03/2021 7:20 AM
--- NOTE | 2021-03-03 07:40 | Hospitalist Progress Note ---
Date of Service March 03, 2021 Assessment & Plan (1) COVID-19: acute respiratory failure with hypoxia -Maintain airborne isolation precautions -normal Procalcitonin, elevted BNP, Ddimer crp -Dexamethasone 6mg IV daily -Remdesivir per protocol maybe a candidate for tociluzimab as crp is up -Lovenox 40 BID -Tylenol PRN -Robitussing PRN -Albuterol PRN (2) Davis catheter in place: For urinary retention - -Continue Flomax -Routine catheter care q shift (3) CAD (coronary artery disease): No CP -Continue home medications, ASA, Atorvastatin, Metoprolol F/E/N - Heplock. Electrolytes WNL, check PO4 x 1, Heart healthy diet as tolerated Ppx - Lovenox 40 BID pt requests colace for stool program Code- Full on covid tele unit, Subjective This is a 66-year-old male patient who presents to the emergency department with increasing shortness of breath and chest discomfort. The patient had an O2 saturation in the 70/80% range upon presentation to the emergency department. The patient did have a Covid exposure at work. He has not yet received the Covid vaccine. He already is on 10L nc, has a mildly changed cxr, is leukopenic and thrombocytopenic, CRP elevted thus if decompensates maybe tociluzimab cad[place]te Review of Systems Review of Systems: Constitutional: + fatigue and + weakness Respiratory: no cough, no chest congestion and no dyspnea Cardiovascular: no chest pain and no dyspnea on exertion Gastrointestinal: no abdominal pain, no nausea and no vomiting Musculoskeletal: no joint pain and no swelling Integumentary: no rash and no lesions Results & Data Results & Data ([facility]) Vital Signs (Past 12 Hours) Vital Signs Temp Pulse Resp BP Pulse Ox 03/03/21 06:48 96 03/03/21 06:45 89 20 126/81 96 03/03/21 06:30 92 H 20 134/84 97 03/03/21 06:28 22 98 03/03/21 06:00 91 H 21 139/94 98 03/03/21 05:32 22 91 03/03/21 05:30 98 H 19 130/88 92 03/03/21 05:00 100 H 22 126/84 87 L 03/03/21 04:30 102 H 22 134/76 91 03/03/21 04:08 99.9 F H 112 H 18 124/79 83 L PG Care Time/CCT Total # of Minutes Spent Total Time Spent with Patient: Total time spent is greater than 50% in coordination of care (as documented) at patient's floor/unit and/or counseling patient: Coding Level of Care Code None Diagnoses COVID-19 U07.[address] Z97.8 CAD (coronary artery disease) I25.10 Associated angina: without angina Coronary Disease-Associated Artery/Lesion type: [place] artery [place] vs. transplanted heart: [place] heart (1) CAD (coronary artery disease) Associated angina: without angina Coronary Disease-Associated Artery/Lesion type: [place] artery [place] vs. transplanted heart: [place] heart Qualified Code(s): I25.10 - Atherosclerotic heart disease of [place] coronary artery without angina pectoris
[2021-03-03] MEDS ORDERED: OXYBUTYNIN CHLORIDE 5 MG TAB PO PRN (09:34)
[2021-03-03] MEDS ORDERED: guaiFENesin SUGAR FREE 100 MG/5 ML UDC PO PRN (09:34)
[2021-03-03] MEDS ORDERED: ALBUTEROL HFA 8 GM INHALER INH PRN (09:34)
[2021-03-03] MEDS ORDERED: HYDROcodone/ACETAMINOPHEN 10/325 TAB PO PRN (09:34)
[2021-03-03] MEDS ORDERED: REMDESIVIR 200 MG in SODIUM CHLORIDE 0.9% 210 ML IV STA (09:41)
[2021-03-03 10:57] LABS: D Dimer 1130 ug/L FEU (0-500)
[2021-03-03 11:05] LABS: Phosphorus 2.1 mg/dl (2.5-4.9)
[2021-03-03] MEDS: ENOXAPARIN INJ 40 MG/0.4 ML SYR SQ SCH ×2 (11:09→21:09)
[2021-03-03] MEDS: AMOXICILLIN 500 MG CAP PO SCH ×2 (11:09→17:34)
[2021-03-03] MEDS: ASPIRIN 81 MG ECTAB PO SCH (11:10)
[2021-03-03] MEDS: TAMSULOSIN HCL 0.4 MG CAP PO SCH ×2 (11:10→20:10)
[2021-03-03] MEDS: SODIUM CHLORIDE 0.9% 10ML FLUSH IV SCH (13:28)
[2021-03-03] MEDS: LORazepam 0.5 MG TAB PO PRN ×2 (13:28→22:13)
--- NOTE | 2021-03-03 15:32 | Electrocardiogram Report ---
Test Reason : Blood Pressure : / mmHG Vent. Rate : 099 BPM Atrial Rate : 099 BPM P-R Int : 136 ms QRS Dur : 086 ms QT Int : 322 ms P-R-T Axes : 018 -34 -03 degrees QTc Int : 413 ms Normal sinus rhythm Possible Left atrial enlargement Left axis deviation Abnormal ECG When compared with ECG of 15-NOV-2020 10:17, QRS axis Shifted left Borderline criteria for Inferior infarct are no longer Present Confirmed by Ryan Gutierrez ([id number]) on 03/03/2021 3:32:09 PM Referred By: REFERRED SELF Confirmed By:Ryan Gutierrez
[2021-03-03 15:37] LABS: Appearance Urine Clear (Clear); Bilirubin Urine Negative (Negative); Blood Urine Negative (Negative); Color Urine Yellow; Glucose Urine UA 1+ (Negative); Ketones Urine Trace (Negative); Leukocyte Esterase Urine Negative (Negative); Nitrite Urine Negative (Negative); Protein Urine Negative (Negative); Specific Gravity Urine 1.012 (1.000-1.030); Urobilinogen Urine Negative (Negative); pH Urine 7.5 (4.5-7.5)
[2021-03-03] MEDS: ACETAMINOPHEN 325 MG TAB PO PRN ×2 (17:33→22:17)
[2021-03-03] MEDS: DOCUSATE SODIUM 100 MG CAP PO SCH (20:10)
[2021-03-03] MEDS: ATORVASTATIN 40 MG TAB PO SCH (20:10)
[2021-03-03] MEDS: ONDANSETRON INJ 2 MG/ML 2 ML VIAL IV PRN (22:13)
[2021-03-04 07:36] LABS: Hematocrit (blood only) 41.7 % (42-52); Hemoglobin 14.6 g/dL (14.0-18.0); Immature Granulocytes # (auto) 0.05 K/uL (0.00-0.02); Immature Granulocytes % (auto) 1.6 %; Lymphocytes # (auto) 0.27 K/uL (1.2-3.4); Lymphocytes % (auto) 8.7 %; Mean Corpuscular Hemoglobin 30.4 pg (25-34); Mean Corpuscular Volume 86.7 fL (80-100); Mean Platelet Volume 10.6 fL (7.4-10.4); Monocytes # (auto) 0.26 K/uL (0.11-0.59); Monocytes % (auto) 8.4 %; Neutrophils # (auto) 2.53 K/uL (1.4-6.5); Neutrophils % (auto) 81.3 %; Platelet Count 106 K/uL (130-400); RDW Coefficient of Variation 13.4 % (11.5-14.5); RDW Standard Deviation 42.5 fL (36.4-46.3); Red Blood Count 4.81 M/uL (4.7-6.1); White Blood Count 3.11 K/uL (4.8-10.8)
[2021-03-04] MEDS: ACETAMINOPHEN 325 MG TAB PO PRN ×3 (08:09→17:18)
[2021-03-04] MEDS: TAMSULOSIN HCL 0.4 MG CAP PO SCH ×2 (08:11→19:51)
[2021-03-04] MEDS: AMOXICILLIN 500 MG CAP PO SCH ×2 (08:11→17:18)
[2021-03-04] MEDS: ASPIRIN 81 MG ECTAB PO SCH (08:12)
[2021-03-04 08:15] LABS: Albumin Level 2.8 gm/dl (3.4-5.0); BUN Creatinine Ratio 18.8 (10-20); Bilirubin Direct 0.2 mg/dl (0-0.2); Calcium 9.7 mg/dl (8.5-10.1); Creatinine Clr Calc Pharmacy 80.2 ml/min; Est GFR (African American) 108.1; Est GFR (Non-African American) 93.3; Potassium 3.7 mmol/L (3.5-5.1)
[2021-03-04 08:25] LABS: Bilirubin,Total 0.9 mg/dl (0.2-1); Total Protein 7.1 gm/dl (6.4-8.2)
[2021-03-04] MEDS: ENOXAPARIN INJ 40 MG/0.4 ML SYR SQ SCH ×2 (09:34→21:40)
[2021-03-04] MEDS: dexAMETHasone 6 MG in SYRINGE 0 ML IV SCH (09:34)
[2021-03-04] MEDS: ONDANSETRON INJ 2 MG/ML 2 ML VIAL IV PRN ×2 (09:45→17:18)
[2021-03-04] MEDS: LORazepam 0.5 MG TAB PO PRN ×2 (09:45→19:50)
[2021-03-04] MEDS: REMDESIVIR 100 MG in SODIUM CHLORIDE 0.9% 230 ML IV SCH (12:06)
[2021-03-04] MEDS: SODIUM CHLORIDE 0.9% 10ML FLUSH IV SCH (13:39)
--- NOTE | 2021-03-04 15:49 | Hospitalist Progress Note ---
Date of Service March 04, 2021 Assessment & Plan (1) COVID-19: acute respiratory failure with hypoxia -Maintain airborne isolation precautions -normal Procalcitonin, elevted BNP, Ddimer and crp (11) -Dexamethasone 6mg IV daily -Remdesivir per protocol Oxygen has improved over the first 24 hours -Lovenox 40 BID -Tylenol PRN -Robitussing PRN -Albuterol PRN (2) Davis catheter in place: For urinary retention - -Continue Flomax -Routine catheter care q shift (3) CAD (coronary artery disease): No CP -Continue home medications, ASA, Atorvastatin, Metoprolol Ppx - Lovenox 40 BID. 0.5/kg twice daily pt requests colace for stool program weekly takes 3 Colace at night Code- Full Remains in Covid unit Admission and Anticipated Discharge Date Admission Date: March 03, 2021 Subjective This is a 66-year-old male patient who presents to the emergency department with increasing shortness of breath and chest discomfort. The patient had an O2 saturation in the 70/80% range upon presentation to the emergency department. The patient did have a Covid exposure at work. He has not yet received the Covid vaccine. Patient reduced from 10 L to 6 L nasal cannula,, has a mildly changed cxr, is leukopenic and thrombocytopenic, CRP elevated but improvement of oxygenation makes this likely the fact that he would need tocilizumab Review of Systems Review of Systems: Moderate respiratory distress and systemic fatigue no headache, blurry or double vision no speech or swallowing issues no chest pain, pressure or palpitations Breathlessness moving about the bed nonproductive coughing no abdominal pain, nausea or vomiting, diarrhea or constipation no dysuria, hematuria or frequency no focal joint pain or swelling no back pain, CVA tenderness or radicular pain no bruising, bleeding or rashes no focal signs of weakness or numbness or altered sensation no complaints of anxiety or depression.. Physical Exam Physical Exam: The patient appeared well nourished and normally developed. Vital signs as documented. Head exam is normocephalic atraumatic Neck is without JVD, thyromegaly, or carotid bruits. Lungs are bilateral coarse crackles sound worse than his oxygenation status Cardiac exam, Rhythm is regular.. No murmurs, rubs or gallops. Abdominal exam reveals normal bowel sounds, soft non tender, no masses Extremities are nonedematous and both pedal pulses are present Neurologic exam is alert and oriented, no focal loss of strength or sensation Skin is without bruises or rashes Psychologically is with anxiety Results & Data Results & Data ([facility]) Vital Signs (Past 12 Hours) Vital Signs Temp Pulse Resp BP Pulse Ox 03/04/21 11:16 97.5 F L 98 H 20 129/78 93 03/04/21 07:36 97.7 F 93 H 18 130/84 91 03/04/21 06:30 97.7 F 86 21 116/82 92 03/04/21 04:23 97.9 F 80 21 131/83 97 PG Care Time/CCT Total # of Minutes Spent Total Time Spent with Patient: Total time spent is greater than 50% in coordination of care (as documented) at patient's floor/unit and/or counseling patient: Coding Level of Care Code 37349 Subseq Hosp Care Lvl 3 Diagnoses COVID-19 U07.[address] Z97.8 CAD (coronary artery disease) I25.10 Coronary Disease-Associated Artery/Lesion type: [place] artery [place] vs. transplanted heart: [place] heart Associated angina: without angina (1) CAD (coronary artery disease) Coronary Disease-Associated Artery/Lesion type: [place] artery [place] vs. transplanted heart: [place] heart Associated angina: without angina Qualified Code(s): I25.10 - Atherosclerotic heart disease of [place] coronary artery without angina pectoris
[2021-03-04] MEDS: DOCUSATE SODIUM 100 MG CAP PO SCH (19:50)
[2021-03-04] MEDS: BACLOFEN 10 MG TAB PO PRN (19:50)
[2021-03-04] MEDS: ATORVASTATIN 40 MG TAB PO SCH (19:51)
[2021-03-05] MEDS ORDERED: diphenhydrAMINE Capsule 25 MG CAP PO ONE (01:51)
[2021-03-05] MEDS: ACETAMINOPHEN 325 MG TAB PO PRN ×3 (02:03→15:14)
[2021-03-05] MEDS: BACLOFEN 10 MG TAB PO PRN ×2 (07:18→15:14)
[2021-03-05] MEDS: dexAMETHasone 6 MG in SYRINGE 0 ML IV SCH (07:18)
[2021-03-05] MEDS: LORazepam 0.5 MG TAB PO PRN (07:18)
[2021-03-05] MEDS: TAMSULOSIN HCL 0.4 MG CAP PO SCH ×2 (07:19→21:10)
[2021-03-05] MEDS: AMOXICILLIN 500 MG CAP PO SCH ×2 (07:19→16:34)
[2021-03-05] MEDS: ASPIRIN 81 MG ECTAB PO SCH (07:19)
[2021-03-05] MEDS: ENOXAPARIN INJ 40 MG/0.4 ML SYR SQ SCH ×2 (09:09→21:10)
[2021-03-05] MEDS: REMDESIVIR 100 MG in SODIUM CHLORIDE 0.9% 230 ML IV SCH (11:19)
[2021-03-05] MEDS: SODIUM CHLORIDE 0.9% 10ML FLUSH IV SCH (11:19)
--- NOTE | 2021-03-05 13:31 | Hospitalist Progress Note ---
Date of Service March 05, 2021 Assessment & Plan (1) COVID-19: acute respiratory failure with hypoxia continue dexamethasone 6mg IV daily, day 3 continue Remdesivir per protocol, day 3 incentive spirometer, flutter valve no role for Tocilizumab at this time down to 5L today, continue to try to wean off oxygen (2) Hypoxia: acute hypoxic respiratory failure due to COVID 19 pneumonia improving slowly, down to 5L today continue above treatment encourage patient to lay prone if possible (3) Davis catheter in place: For urinary retention - chronic issue due to prostate CA -Continue Flomax -Routine catheter care q shift (4) CAD (coronary artery disease): No CP -Continue home medications, ASA, Atorvastatin, Metoprolol (5) Anxiety: more panic attacks while here, could not sleep last night will make Ativan scheduled, 0.5mg AM and 1mg HS can have additional 0.5mg PO q8 PRN for panic attacks (6) Constipation: had a BM this morning but very hard, had to strain will continue Colace added Miralax daily Admission and Anticipated Discharge Date Admission Date: March 03, 2021 Subjective patient says he is breathing a lot better, he is stable on 5L, no distress at all has a dry cough but not bothering him much he ate a lot better today which he is happy about, no nausea, he had a solid BM this morning he is not sleeping well and he is having a lot of anxiety, panic attacks he says he has suffered from anxiety for years, ever since his heart attack he typically takes Ativan 0.5mg in the morning and the evening before bed every day and has more to take as needed for increased symptoms reviewed chart Review of Systems Review of Systems: All systems reviewed & are unremarkable except as noted in Subjective Physical Exam Constitutional: WD/WN, vitals as above comfortable; no acute distress Neck: trachea midline, no thyromegaly Respiratory: normal respiratory effort, lungs clear to auscultation Cardiovascular: RRR, no murmur, no edema Gastrointestinal (Abdomen): normal bowel sounds, soft, nontender, no hepatosplenomegaly Musculoskeletal: no cyanosis or clubbing, extremities motor strength 5/5 Skin: no rashes, warm and dry Neurologic: patellar DTR's 2+ bilat, sensation intact and PERRL, EOMI, accommodation nl, no face palsy, no dysarthria Psychiatric: A+Ox3, euthymic affect Lymphatic: no cervical or axillary lymphadenopathy Results & Data Results & Data ([facility]) Vital Signs (Past 12 Hours) Vital Signs Temp Pulse Resp BP Pulse Ox 03/05/21 11:23 37.1 C 93 H 18 127/90 96 03/05/21 07:30 36.6 C 85 19 124/76 90 Medications Administered Current Inpatient Medications Acetaminophen (Acetaminophen 325 Mg Tab) 650 mg PO Q4H PRN PRN Reason: pain or fever Stop: 04/02/21 09:33 Last Admin: 03/05/21 07:18 Dose: 650 mg Documented by: Hydrocodone Bitart/Acetaminophen (Hydrocodone/Acetaminophen 10/325 Tab) 1 tab PO Q6H PRN PRN Reason: pain Stop: 03/17/21 09:33 Albuterol (Albuterol Hfa 8 Gm Inhaler) 2 puffs INH Q4R PRN PRN Reason: sob Stop: 04/02/21 09:33 Amoxicillin (Amoxicillin 500 Mg Cap) 500 mg PO BIDM [facility]; Protocol Stop: 03/10/21 23:59 Last Admin: 03/05/21 07:19 Dose: 500 mg Documented by: Aspirin (Aspirin 81 Mg Ectab) 81 mg PO QAM [facility] Stop: 04/02/21 09:59 Last Admin: 03/05/21 07:19 Dose: 81 mg Documented by: Atorvastatin Calcium (Atorvastatin 40 Mg Tab) 80 mg PO [facility] Stop: 04/02/21 20:59 Last Admin: 03/04/21 19:51 Dose: 80 mg Documented by: Baclofen (Baclofen 10 Mg Tab) 10 mg PO TID PRN PRN Reason: Pain Stop: 04/02/21 09:33 Last Admin: 03/05/21 07:18 Dose: 10 mg Documented by: Docusate Sodium (Docusate Sodium 100 Mg Cap) 300 mg PO [facility] Stop: 04/02/21 20:59 Last Admin: 03/04/21 19:50 Dose: 300 mg Documented by: Enoxaparin Sodium (Enoxaparin Inj 40 Mg/0.4 Ml Syr) 40 mg SQ Q12H [facility] Stop: 04/02/21 09:59 Last Admin: 03/05/21 09:09 Dose: 40 mg Documented by: Guaifenesin (Guaifenesin Sugar Free 100 Mg/5 Ml Udc) 100 mg PO Q6H PRN PRN Reason: Cough Stop: 04/02/21 09:33 Last Admin: 03/04/21 19:50 Dose: 100 mg Documented by: Dexamethasone 6 mg/ Syringe 1.5 mls @ 1 mls/min IV DAILY@0800 [facility] Stop: 04/03/21 07:59 Last Admin: 03/05/21 07:18 Dose: 1 mls/min Documented by: Remdesivir 100 mg/ Sodium (Chloride) 250 mls @ 250 mls/hr IV Q24H DONAL; Protocol Stop: 03/07/21 12:59 Last Infusion: 03/05/21 12:24 Dose: Infused Documented by: Lorazepam (Lorazepam 0.5 Mg Tab) 0.5 mg PO TID PRN PRN Reason: Anxiety Stop: 04/02/21 09:33 Last Admin: 03/05/21 07:18 Dose: 0.5 mg Documented by: Ondansetron HCl (Ondansetron Inj 2 Mg/Ml 2 Ml Vial) 4 mg IV Q6H PRN PRN Reason: Nausea And Vomiting Stop: 04/02/21 20:48 Last Admin: 03/04/21 17:18 Dose: 4 mg Documented by: Oxybutynin Chloride (Oxybutynin Chloride 5 Mg Tab) 5 mg PO TID PRN PRN Reason: bladder spasms Stop: 04/02/21 09:33 Last Admin: 03/04/21 08:11 Dose: 5 mg Documented by: Sodium Chloride (Sodium Chloride 0.9% 10ml Flush) 30 ml IV DAILY@1200 [facility] Stop: 03/07/21 12:01 Last Admin: 03/05/21 11:19 Dose: 30 ml Documented by: Tamsulosin HCl (Tamsulosin Hcl 0.4 Mg Cap) 0.4 mg PO BID [facility] Stop: 04/02/21 09:59 Last Admin: 03/05/21 07:19 Dose: 0.4 mg Documented by: PG Care Time/CCT Total # of Minutes Spent Total Time Spent with Patient: Total time spent is greater than 50% in coordination of care (as documented) at patient's floor/unit and/or counseling patient: Coding Level of Care Code 88852 Subseq Hosp Care Lvl 3 Diagnoses COVID-19 U07.1 Hypoxia R09.[address] Z97.8 CAD (coronary artery disease) I25.10 Coronary Disease-Associated Artery/Lesion type: [place] artery [place] vs. transplanted heart: [place] heart Associated angina: without angina Anxiety F41.9 Constipation K59.00 (1) CAD (coronary artery disease) Coronary Disease-Associated Artery/Lesion type: [place] artery [place] vs. transplanted heart: [place] heart Associated angina: without angina Qualified Code(s): I25.10 - Atherosclerotic heart disease of [place] coronary artery without angina pectoris
[2021-03-05] MEDS ORDERED: LORazepam 0.5 MG TAB PO PRN (13:42)
[2021-03-05] MEDS: PROMETHAZINE HCL 12.5 MG in SODIUM CHLORIDE 0.9% 50 ML IV PRN (18:23)
[2021-03-05] MEDS: LORazepam 1 MG TAB PO SCH (21:10)
[2021-03-05] MEDS: ATORVASTATIN 40 MG TAB PO SCH (21:10)
[2021-03-05] MEDS ORDERED: POLYETHYLENE (MIRALAX) 17 GM PACK ONE (21:21)
[2021-03-05] MEDS: DOCUSATE SODIUM 100 MG CAP PO SCH (21:26)
[2021-03-06] MEDS ORDERED: ALUMINUM/MAGNESIUM SUSP 30 ML UDC PO STA (05:29)
[2021-03-06] MEDS: dexAMETHasone 6 MG in SYRINGE 0 ML IV SCH (07:42)
[2021-03-06] MEDS: BACLOFEN 10 MG TAB PO PRN ×2 (07:42→18:44)
[2021-03-06] MEDS: ACETAMINOPHEN 325 MG TAB PO PRN ×2 (07:42→20:58)
[2021-03-06] MEDS: LORazepam 0.5 MG TAB PO SCH (07:42)
[2021-03-06] MEDS: ASPIRIN 81 MG ECTAB PO SCH (07:43)
[2021-03-06] MEDS: TAMSULOSIN HCL 0.4 MG CAP PO SCH ×2 (07:43→20:58)
[2021-03-06] MEDS: AMOXICILLIN 500 MG CAP PO SCH ×2 (07:43→17:19)
[2021-03-06] MEDS: CALCIUM CARBONATE 500 MG CHEWABLE TAB PO PRN ×2 (08:07→19:38)
[2021-03-06] MEDS ORDERED: POLYETHYLENE (MIRALAX) 17 GM PACK PO SCH (09:00)
[2021-03-06] MEDS: PANTOprazole 40 MG TAB PO SCH (09:14)
[2021-03-06] MEDS: ENOXAPARIN INJ 40 MG/0.4 ML SYR SQ SCH ×2 (10:26→20:59)
--- NOTE | 2021-03-06 11:07 | Hospitalist Progress Note ---
Date of Service March 06, 2021 Assessment & Plan (1) COVID-19: acute respiratory failure with hypoxia continue dexamethasone 6mg IV daily, day 4 continue Remdesivir per protocol, day 4 incentive spirometer, flutter valve add Mucinex to loosen sputum add Zithromax 500mg daily check CXR today no role for Tocilizumab at this time still on 5L today, continue to try to wean off oxygen (2) Hypoxia: acute hypoxic respiratory failure due to COVID 19 pneumonia stable at 5L today continue above treatment encourage patient to lay prone if possible (3) Davis catheter in place: For urinary retention - chronic issue due to prostate CA -Continue Flomax -Routine catheter care q shift (4) CAD (coronary artery disease): No CP -Continue home medications, ASA, Atorvastatin, Metoprolol (5) Anxiety: better with scheduled Ativan 0.5mg AM and 1mg HS can have additional 0.5mg PO q8 PRN for panic attacks (6) Constipation: corrected his regimen, he takes Senokot S three tablets at night ordered this (7) GERD (gastroesophageal reflux disease): Tums q6 PRN and protonix 40mg daily feeling better this morning Admission and Anticipated Discharge Date Admission Date: March 03, 2021 Subjective patient not feeling as well as yesterday, he is frustrated said he slept well last night, all night, after the Ativan 1mg PO he said he woke up around 5am with heartburn, went away after Tums and Protonix 40mg PO he is coughing more, feels like he cannot get sputum up, will add flutter valve and Mucinex he was on 4L yesterday, bumpted back up to 5L, he is frustrated will get a portable CXR this morning no fever/chills/sweats, no chest pain, no abdominal pain or nausea no labs today Review of Systems Review of Systems: All systems reviewed & are unremarkable except as noted in Subjective Physical Exam Constitutional: WD/WN, vitals as above comfortable; no acute distress Neck: trachea midline, no thyromegaly Respiratory: + cough and + tachypneic; no labored breathing Auscultation: + rhonchi (scattered); no rales and no wheezes Cardiovascular: RRR, no murmur, no edema Gastrointestinal (Abdomen): normal bowel sounds, soft, nontender, no hepatosplenomegaly Musculoskeletal: no cyanosis or clubbing, extremities motor strength 5/5 Skin: no rashes, warm and dry Neurologic: patellar DTR's 2+ bilat, sensation intact and PERRL, EOMI, accommodation nl, no face palsy, no dysarthria Psychiatric: A+Ox3, euthymic affect Lymphatic: no cervical or axillary lymphadenopathy Results & Data Results & Data ([place]) Vital Signs (Past 12 Hours) Vital Signs Temp Pulse Resp BP Pulse Ox 03/06/21 07:39 36.7 C 84 20 103/74 90 03/06/21 03:00 36.8 C 88 18 111/73 93 Medications Administered Current Inpatient Medications Acetaminophen (Acetaminophen 325 Mg Tab) 650 mg PO Q4H PRN PRN Reason: pain or fever Stop: 04/02/21 09:33 Last Admin: 03/06/21 07:42 Dose: 650 mg Documented by: Hydrocodone Bitart/Acetaminophen (Hydrocodone/Acetaminophen 10/325 Tab) 1 tab PO Q6H PRN PRN Reason: pain Stop: 03/17/21 09:33 Albuterol (Albuterol Hfa 8 Gm Inhaler) 2 puffs INH Q4R PRN PRN Reason: sob Stop: 04/02/21 09:33 Amoxicillin (Amoxicillin 500 Mg Cap) 500 mg PO BIDM [facility]; Protocol Stop: 03/10/21 23:59 Last Admin: 03/06/21 07:43 Dose: 500 mg Documented by: Aspirin (Aspirin 81 Mg Ectab) 81 mg PO QAM [facility] Stop: 04/02/21 09:59 Last Admin: 03/06/21 07:43 Dose: 81 mg Documented by: Atorvastatin Calcium (Atorvastatin 40 Mg Tab) 80 mg PO [facility] Stop: 04/02/21 20:59 Last Admin: 03/05/21 21:10 Dose: 80 mg Documented by: Baclofen (Baclofen 10 Mg Tab) 10 mg PO TID PRN PRN Reason: Pain Stop: 04/02/21 09:33 Last Admin: 03/06/21 07:42 Dose: 10 mg Documented by: Calcium Carbonate (Calcium Carbonate 500 Mg Chewable Tab) 500 mg PO Q6 PRN PRN Reason: Indigestion Stop: 04/05/21 07:51 Last Admin: 03/06/21 08:07 Dose: 500 mg Documented by: Docusate Sodium (Docusate Sodium 100 Mg Cap) 300 mg PO HS [facility] Stop: 04/02/21 20:59 Last Admin: 03/05/21 21:26 Dose: 300 mg Documented by: Enoxaparin Sodium (Enoxaparin Inj 40 Mg/0.4 Ml Syr) 40 mg SQ Q12H [facility] Stop: 04/02/21 09:59 Last Admin: 03/06/21 10:26 Dose: 40 mg Documented by: Guaifenesin (Guaifenesin Sugar Free 100 Mg/5 Ml Udc) 100 mg PO Q6H PRN PRN Reason: Cough Stop: 04/02/21 09:33 Last Admin: 03/04/21 19:50 Dose: 100 mg Documented by: Dexamethasone 6 mg/ Syringe 1.5 mls @ 1 mls/min IV DAILY@0800 [facility] Stop: 04/03/21 07:59 Last Admin: 03/06/21 07:42 Dose: 1 mls/min Documented by: Remdesivir 100 mg/ Sodium (Chloride) 250 mls @ 250 mls/hr IV Q24H [facility]; Protocol Stop: 03/07/21 12:59 Last Infusion: 03/05/21 12:24 Dose: Infused Documented by: Promethazine HCl 12.5 mg/ (Sodium Chloride) 50.5 mls @ 202 mls/hr IV Q6H PRN PRN Reason: Nausea And Vomiting Stop: 04/04/21 13:42 Last Infusion: 03/05/21 18:38 Dose: Infused Documented by: Lorazepam (Lorazepam 0.5 Mg Tab) 0.5 mg PO Q8 PRN PRN Reason: Anxiety Stop: 04/04/21 13:41 Lorazepam (Lorazepam 1 Mg Tab) 1 mg PO [facility] Stop: 04/04/21 20:59 Last Admin: 03/05/21 21:10 Dose: 1 mg Documented by: Lorazepam (Lorazepam 0.5 Mg Tab) [facility] [place] Stop: 04/05/21 08:59 Last Admin: 03/06/21 07:42 Dose: 0.5 mg Documented by: Oxybutynin Chloride (Oxybutynin Chloride 5 Mg Tab) 5 mg PO TID PRN PRN Reason: bladder spasms Stop: 04/02/21 09:33 Last Admin: 03/04/21 08:11 Dose: 5 mg Documented by: Pantoprazole Sodium (Pantoprazole 40 Mg Tab) 40 mg PO QAM [facility] Stop: 04/05/21 08:59 Last Admin: 03/06/21 09:14 Dose: 40 mg Documented by: Polyethylene Glycol (Polyethylene (Miralax) 17 Gm Pack) 17 gm PO DAILY [facility] Stop: 04/05/21 08:59 Last Admin: 03/06/21 08:07 Dose: 17 gm Documented by: Sodium Chloride (Sodium Chloride 0.9% 10ml Flush) 30 ml IV DAILY@1200 [facility] Stop: 03/07/21 12:01 Last Admin: 03/05/21 11:19 Dose: 30 ml Documented by: Tamsulosin HCl (Tamsulosin Hcl 0.4 Mg Cap) 0.4 mg PO BID [facility] Stop: 04/02/21 09:59 Last Admin: 03/06/21 07:43 Dose: 0.4 mg Documented by: PG Care Time/CCT Total # of Minutes Spent Total Time Spent with Patient: Total time spent is greater than 50% in coordination of care (as documented) at patient's floor/unit and/or counseling patient: Coding Level of Care Code 90413 Subseq Hosp Care Lvl 3 Diagnoses COVID-19 U07.1 Hypoxia R09.[address] Z97.8 CAD (coronary artery disease) I25.10 Coronary Disease-Associated Artery/Lesion type: [place] artery [place] vs. transplanted heart: [place] heart Associated angina: without angina Anxiety F41.9 Constipation K59.00 GERD (gastroesophageal reflux disease) K21.9 (1) CAD (coronary artery disease) Coronary Disease-Associated Artery/Lesion type: [place] artery [place] vs. transplanted heart: [place] heart Associated angina: without angina Qualified Code(s): I25.10 - Atherosclerotic heart disease of [place] coronary artery without angina pectoris
[2021-03-06] MEDS ORDERED: POLYETHYLENE (MIRALAX) 17 GM PACK PO PRN (11:20)
[2021-03-06] MEDS: REMDESIVIR 100 MG in SODIUM CHLORIDE 0.9% 230 ML IV SCH (11:36)
[2021-03-06] MEDS: SODIUM CHLORIDE 0.9% 10ML FLUSH IV SCH (11:38)
--- NOTE | 2021-03-06 12:53 | XRay Report ---
XR chest 1V portable CLINICAL HISTORY: Hypoxemia, COVID COMPARISON STUDY: 03/03/2021 FINDINGS: The heart is borderline enlarged. There are bilateral pulmonary airspace opacities consiste nt with a multifocal pneumonia. Findings are mildly improved when compared the prior study.[ IMPRESSION: Slight improvement in the bilateral pulmonary airspace opacities. ACT 112: Negative or not required by law. Electronically signed by: Chacorta Mandujano M.D. 03/06/2021 12:51 PM
[2021-03-06] MEDS: AZITHROMYCIN 250 MG TAB PO SCH (13:20)
[2021-03-06] MEDS: ATORVASTATIN 40 MG TAB PO SCH (20:58)
[2021-03-06] MEDS: guaiFENesin 600 MG TABCR PO SCH (20:58)
[2021-03-06] MEDS: DOCUSATE SODIUM/SENNA 50/8.6MG TAB PO SCH (20:59)
[2021-03-06] MEDS: LORazepam 1 MG TAB PO SCH (20:59)
[2021-03-07] MEDS: CALCIUM CARBONATE 500 MG CHEWABLE TAB PO PRN ×2 (03:22→18:27)
[2021-03-07] MEDS ORDERED: SODIUM CHLORIDE 0.65% NA SOLN 45 ML (OCEAN) ONE (05:53)
[2021-03-07] MEDS: AMOXICILLIN 500 MG CAP PO SCH ×2 (08:45→16:24)
[2021-03-07] MEDS: LORazepam 0.5 MG TAB PO SCH (08:45)
[2021-03-07] MEDS: ASPIRIN 81 MG ECTAB PO SCH (08:45)
[2021-03-07] MEDS: dexAMETHasone 6 MG in SYRINGE 0 ML IV SCH (08:45)
[2021-03-07] MEDS: AZITHROMYCIN 250 MG TAB PO SCH (08:46)
[2021-03-07] MEDS: PANTOprazole 40 MG TAB PO SCH (08:46)
[2021-03-07] MEDS: guaiFENesin 600 MG TABCR PO SCH ×2 (08:46→20:46)
[2021-03-07] MEDS: TAMSULOSIN HCL 0.4 MG CAP PO SCH ×2 (08:47→20:46)
--- NOTE | 2021-03-07 10:57 | Hospitalist Progress Note ---
Date of Service March 07, 2021 Assessment & Plan (1) COVID-19: acute respiratory failure with hypoxia continue dexamethasone 6mg IV daily, day 5 continue Remdesivir per protocol, day 5 incentive spirometer, flutter valve add Mucinex to loosen sputum add Zithromax 500mg daily CXR on 03/06 with improving infiltrates up to 6L nasal canula today, will check CTA chest to rule out PE as contributing to his hypoxemia no role for Tocilizumab at this time (2) Hypoxia: acute hypoxic respiratory failure due to COVID 19 pneumonia up to 6L today continue above treatment encourage patient to lay prone if possible, he is laying on his side (3) Davis catheter in place: For urinary retention - chronic issue due to prostate CA -Continue Flomax -Routine catheter care q shift (4) CAD (coronary artery disease): No CP -Continue home medications, ASA, Atorvastatin, Metoprolol (5) Anxiety: better with scheduled Ativan 0.5mg AM and 1mg HS can have additional 0.5mg PO q8 PRN for panic attacks (6) Constipation: corrected his regimen, he takes Senokot S three tablets at night had a BM today (7) GERD (gastroesophageal reflux disease): Tums q6 PRN and protonix 40mg daily feeling better the past 24 hours, no severe symptoms this morning Admission and Anticipated Discharge Date Admission Date: March 03, 2021 Subjective patient laying on his side, c/o being hot and cold, chills he is eating okay, had a good BM this morning he continues to have anxiety, did not sleep great RN trying to motivate him to get OOB in chair, he did not want to move saturations are 90's on his side but requiring 6L this morning CXR yesterday actually showed improvement in his infiltrates discussed getting a CTA chest to rule out blood clot, he understands will get labs today Review of Systems Review of Systems: All systems reviewed & are unremarkable except as noted in Subjective Cardiovascular: + chest pain (with coughing) Physical Exam Constitutional: WD/WN, vitals as above comfortable; no acute distress Neck: trachea midline, no thyromegaly Respiratory: normal respiratory effort, lungs clear to auscultation + cough; no labored breathing Auscultation: + rhonchi (scattered); no rales and no wheezes Cardiovascular: RRR, no murmur, no edema Gastrointestinal (Abdomen): normal bowel sounds, soft, nontender, no hepatosplenomegaly Musculoskeletal: no cyanosis or clubbing, extremities motor strength 5/5 Skin: no rashes, warm and dry Neurologic: patellar DTR's 2+ bilat, sensation intact and PERRL, EOMI, accommodation nl, no face palsy, no dysarthria Psychiatric: A+Ox3, euthymic affect Lymphatic: no cervical or axillary lymphadenopathy Results & Data Results & Data ([facility]) Vital Signs (Past 12 Hours) Vital Signs Temp Pulse Resp BP Pulse Ox 03/07/21 07:35 36.9 C 98 H 18 123/78 93 03/07/21 03:15 36.9 C 87 20 125/79 93 Medications Administered Current Inpatient Medications Acetaminophen (Acetaminophen 325 Mg Tab) 650 mg PO Q4H PRN PRN Reason: pain or fever Stop: 04/02/21 09:33 Last Admin: 03/06/21 20:58 Dose: 650 mg Documented by: Hydrocodone Bitart/Acetaminophen (Hydrocodone/Acetaminophen 10/325 Tab) 1 tab PO Q6H PRN PRN Reason: pain Stop: 03/17/21 09:33 Albuterol (Albuterol Hfa 8 Gm Inhaler) 2 puffs INH Q4R PRN PRN Reason: sob Stop: 04/02/21 09:33 Amoxicillin (Amoxicillin 500 Mg Cap) 500 mg PO BIDM [facility]; Protocol Stop: 03/10/21 23:59 Last Admin: 03/07/21 08:45 Dose: 500 mg Documented by: Aspirin (Aspirin 81 Mg Ectab) 81 mg PO [facility] Stop: 04/02/21 09:59 Last Admin: 03/07/21 08:45 Dose: 81 mg Documented by: Atorvastatin Calcium (Atorvastatin 40 Mg Tab) 80 mg PO [facility] Stop: 04/02/21 20:59 Last Admin: 03/06/21 20:58 Dose: 80 mg Documented by: Azithromycin (Azithromycin 250 Mg Tab) 500 mg PO [facility] Stop: 03/13/21 11:44 Last Admin: 03/07/21 08:46 Dose: 500 mg Documented by: Baclofen (Baclofen 10 Mg Tab) 10 mg PO TID PRN PRN Reason: Pain Stop: 04/02/21 09:33 Last Admin: 03/06/21 18:44 Dose: 10 mg Documented by: Calcium Carbonate (Calcium Carbonate 500 Mg Chewable Tab) 500 mg PO Q6 PRN PRN Reason: Indigestion Stop: 04/05/21 07:51 Last Admin: 03/07/21 03:22 Dose: 500 mg Documented by: Enoxaparin Sodium (Enoxaparin Inj 40 Mg/0.4 Ml Syr) 40 mg SQ Q12H [facility] Stop: 04/02/21 09:59 Last Admin: 03/06/21 20:59 Dose: 40 mg Documented by: Fluticasone Propionate (Fluticasone Propionate Na Spr 16 Gm Btl) 1 sprays NA Q12 [facility] Stop: 04/06/21 08:59 Guaifenesin (Guaifenesin 600 Mg Tabcr) 1,200 mg PO Q12 [facility] Stop: 04/05/21 20:59 Last Admin: 03/07/21 08:46 Dose: 1,200 mg Documented by: Dexamethasone 6 mg/ Syringe 1.5 mls @ 1 mls/min IV DAILY@0800 [facility] Stop: 04/03/21 07:59 Last Admin: 03/07/21 08:45 Dose: 1 mls/min Documented by: Remdesivir 100 mg/ Sodium (Chloride) 250 mls @ 250 mls/hr IV Q24H [facility]; Protocol Stop: 03/07/21 12:59 Last Infusion: 03/06/21 12:37 Dose: Infused Documented by: Promethazine HCl 12.5 mg/ (Sodium Chloride) 50.5 mls @ 202 mls/hr IV Q6H PRN PRN Reason: Nausea And Vomiting Stop: 04/04/21 13:42 Last Infusion: 03/05/21 18:38 Dose: Infused Documented by: Lorazepam (Lorazepam 0.5 Mg Tab) 0.5 mg PO Q8 PRN PRN Reason: Anxiety Stop: 04/04/21 13:41 Lorazepam (Lorazepam 1 Mg Tab) 1 mg PO HS [facility] Stop: 04/04/21 20:59 Last Admin: 03/06/21 20:59 Dose: 1 mg Documented by: Lorazepam (Lorazepam 0.5 Mg Tab) 0.5 mg PO QAM [facility] Stop: 04/05/21 08:59 Last Admin: 03/07/21 08:45 Dose: 0.5 mg Documented by: Oxybutynin Chloride (Oxybutynin Chloride 5 Mg Tab) 5 mg PO TID PRN PRN Reason: bladder spasms Stop: 04/02/21 09:33 Last Admin: 03/04/21 08:11 Dose: 5 mg Documented by: Pantoprazole Sodium (Pantoprazole 40 Mg Tab) 40 mg PO QAM [facility] Stop: 04/05/21 08:59 Last Admin: 03/07/21 08:46 Dose: 40 mg Documented by: Polyethylene Glycol (Polyethylene (Miralax) 17 Gm Pack) 17 gm PO DAILY PRN PRN Reason: Constipation Stop: 04/05/21 08:59 Senna/Docusate Sodium (Docusate Sodium/Senna 50/8.6mg Tab) 3 tab PO QPM [facility] Stop: 04/05/21 20:59 Last Admin: 03/06/21 20:59 Dose: 3 tab Documented by: Sodium Chloride (Sodium Chloride 0.9% 10ml Flush) 30 ml IV DAILY@1200 [facility] Stop: 03/07/21 12:01 Last Admin: 03/06/21 11:38 Dose: 30 ml Documented by: Tamsulosin HCl (Tamsulosin Hcl 0.4 Mg Cap) 0.4 mg PO BID [facility] Stop: 04/02/21 09:59 Last Admin: 03/07/21 08:47 Dose: 0.4 mg Documented by: PG Care Time/CCT Total # of Minutes Spent Total Time Spent with Patient: Total time spent is greater than 50% in coordination of care (as documented) at patient's floor/unit and/or counseling patient: Coding Level of Care Code 60967 Subseq Hosp Care Lvl 3 Diagnoses COVID-19 U07.1 Hypoxia R09.[address] Z97.8 CAD (coronary artery disease) I25.10 Coronary Disease-Associated Artery/Lesion type: [place] artery [place] vs. transplanted heart: [place] heart Associated angina: without angina Anxiety F41.9 Constipation K59.00 GERD (gastroesophageal reflux disease) K21.9 (1) CAD (coronary artery disease) Coronary Disease-Associated Artery/Lesion type: [place] artery [place] vs. transplanted heart: [place] heart Associated angina: without angina Qualified Code(s): I25.10 - Atherosclerotic heart disease of [place] coronary artery without angina pectoris
[2021-03-07] MEDS: REMDESIVIR 100 MG in SODIUM CHLORIDE 0.9% 230 ML IV SCH (11:16)
[2021-03-07] MEDS: ENOXAPARIN INJ 40 MG/0.4 ML SYR SQ SCH (11:16)
[2021-03-07] MEDS: FLUTICASONE PROPIONATE NA SPR 16 GM BTL SCH ×2 (11:17→20:48)
[2021-03-07 11:28] LABS: Hematocrit (blood only) 39.1 % (42-52); Hemoglobin 13.9 g/dL (14.0-18.0); Mean Corpuscular Hemoglobin 30.8 pg (25-34); Mean Corpuscular Hgb Conc 35.5 g/dL (32-36); Mean Corpuscular Volume 86.5 fL (80-100); Mean Platelet Volume 10.8 fL (7.4-10.4); Platelet Count 154 K/uL (130-400); RDW Coefficient of Variation 13.5 % (11.5-14.5); RDW Standard Deviation 42.8 fL (36.4-46.3); Red Blood Count 4.52 M/uL (4.7-6.1); White Blood Count 6.94 K/uL (4.8-10.8)
[2021-03-07 11:48] LABS: BUN Creatinine Ratio 26.2 (10-20); C Reactive Protein 2.65 mg/dl (0-0.29); Calcium 8.9 mg/dl (8.5-10.1); Creatinine Clr Calc Pharmacy 88.2 ml/min; Est GFR (African American) 112.8; Est GFR (Non-African American) 97.3; Potassium 3.2 mmol/L (3.5-5.1)
[2021-03-07] MEDS ORDERED: OPTIRAY 350 500ml IV ONE (11:58)
[2021-03-07] MEDS: ACETAMINOPHEN 325 MG TAB PO PRN ×2 (12:19→20:53)
--- NOTE | 2021-03-07 12:25 | CT Scan Report ---
CT angio chest PE protocol CT DOSE: 362.58 mGycm HISTORY: 66 years-old Male with PE. Follow-up study in a patient with hypoxia and viral pneumonia TECHNIQUE: Multiple CTA images of the chest were obtained after the intravenous administration of 117 ml Optiray. Coronal and sagittal MIPS were obtained from the axial data set and were submitted for review. All measurements were obtained according to NASCET criteria. A dose lowering technique was u tilized adhering to the principles of ALARA. COMPARISON: Chest radiograph 03/06/2021, PET CT 07/05/2019, CTA chest 02/06/2012 FINDINGS: CTA: The heart is mildly enlarged. Trace pericardial effusion. Extensive coronary artery calcifications. M oderate atherosclerotic plaque the thoracic aorta. No thoracic aortic aneurysm or dissection. Patency of the imaged great vessels. There are linear nonocclusive segmental and subsegmental emboli within the right lower lobe and lingula (. No central pulmonary emboli. No right heart strain. CT CHEST: Unremarkable thyroid. 12 mm AP window lymph node appears similar to the 2019 comparison. No pneumotho rax or pleural effusion. Emphysema. Multilobar peripheral predominant groundglass opacities are noted bilaterally. Respiratory motion artifact limits evaluation of the lung parenchyma. 4 mm fissural nod ule of the right lung base on image 108 is unchanged from comparison and likely benign. Mild tracheob ronchial secretions. Decreased transverse versus dimension of the trachea suggestive of a saber-sheat h morphology. No pneumoperitoneum. Tiny hiatal hernia. Hepatic steatosis. No acute fracture. No suspicious bone les ions. IMPRESSION: 1. Partially occlusive segmental and subsegmental pulmonary emboli of the right lower lobe and lingul a. 2. Bilateral subpleural predominant groundglass opacities compatible with viral pneumonia. 3. Emphysema with mild tracheobronchial secretions. 4. Hepatic steatosis. ACT 112: Negative or not required by law. The above report was generated using voice recognition software. It may contain grammatical, syntax o r spelling errors. Electronically signed by: Josh Ray M.D. 03/07/2021 12:24 PM
[2021-03-07] MEDS ORDERED: ENOXAPARIN INJ 40 MG/0.4 ML SYR SQ STA (12:36)
[2021-03-07] MEDS: PROMETHAZINE HCL 12.5 MG in SODIUM CHLORIDE 0.9% 50 ML IV PRN (12:47)
[2021-03-07] MEDS: SODIUM CHLORIDE 0.9% 10ML FLUSH IV SCH (12:47)
[2021-03-07] MEDS: DOCUSATE SODIUM/SENNA 50/8.6MG TAB PO SCH (20:45)
[2021-03-07] MEDS: ATORVASTATIN 40 MG TAB PO SCH (20:47)
[2021-03-07] MEDS: LORazepam 1 MG TAB PO SCH (20:54)
--- NOTE | 2021-03-08 07:41 | Hospitalist Progress Note ---
Date of Service March 08, 2021 Assessment & Plan (1) Pulmonary emboli: could be subacute based on appearance of clots on CT, discussed with radiology clots in segmental and subsegmental branches of right lower lobe and lingula changed to Lovenox 1mg/kg q12, continue while admitted will transition to Xarelto prior to discharge for 6-12 months of treatment (2) COVID-19: acute respiratory failure with hypoxia continue dexamethasone 6mg IV daily, day 6 completed 5 days of Remdesivir able to lay prone today, encouraged him to do this several times a day for several hours incentive spirometer, flutter valve add Mucinex to loosen sputum add Zithromax 500mg daily yesterday, complete 5 days CXR on 03/06 with improving infiltrates CTA chest with bilateral ground glass opacities, predominantly in the bases no role for Tocilizumab at this time as CRP trending down (3) Hypoxia: acute hypoxic respiratory failure due to COVID 19 pneumonia was up to 7L wall high flow this morning, down to 4.5L while prone, he understands importance of proning continue above treatment (4) Davis catheter in place: For urinary retention - chronic issue due to prostate CA -Continue Flomax -Routine catheter care q shift (5) CAD (coronary artery disease): No CP -Continue home medications, ASA, Atorvastatin, Metoprolol (6) Anxiety: better with scheduled Ativan 0.5mg AM and 1mg HS can have additional 0.5mg PO q8 PRN for panic attacks (7) Constipation: corrected his regimen, he takes Senokot S three tablets at night had a BM today (8) GERD (gastroesophageal reflux disease): Tums q6 PRN and protonix 40mg daily feeling better the past 24 hours, no severe symptoms this morning Admission and Anticipated Discharge Date Admission Date: March 03, 2021 Subjective patient feeling a little better today, breathing a little more comfortably said he slept better last night, HR in the 120-130's this morning, stated that he was on metoprolol prior to admission, on hold, will resume, 12.5mg minimal cough, no fever/chills he layed prone this morning for an hour, able to turn him back to 4.5L wall high flow discussed the findings of right sided PE, Lovenox increased to 60 q12 no labs today Review of Systems Review of Systems: All systems reviewed & are unremarkable except as noted in Subjective Physical Exam Constitutional: WD/WN, vitals as above comfortable; no acute distress Neck: trachea midline, no thyromegaly Respiratory: normal respiratory effort, lungs clear to auscultation + cough; no labored breathing Auscultation: + rhonchi (scattered); no rales and no wheezes Cardiovascular: RRR, no murmur, no edema Gastrointestinal (Abdomen): normal bowel sounds, soft, nontender, no hepatosplenomegaly Musculoskeletal: no cyanosis or clubbing, extremities motor strength 5/5 Skin: no rashes, warm and dry Neurologic: patellar DTR's 2+ bilat, sensation intact and PERRL, EOMI, accommodation nl, no face palsy, no dysarthria Psychiatric: A+Ox3, euthymic affect Lymphatic: no cervical or axillary lymphadenopathy Results & Data Results & Data ([facility]) Vital Signs (Past 12 Hours) Vital Signs Temp Pulse Resp BP Pulse Ox 03/07/21 22:34 37.1 C 108 H 20 105/71 96 Laboratory Results Laboratory Results - last 24 hr 03/07/21 03/07/21 11:13 11:13 WBC 6.94 RBC 4.52 L Hgb 13.9 L Hct 39.1 L MCV 86.5 MCH 30.8 MCHC 35.5 RDW Std Deviation 42.8 RDW Coeff of Maikel 13.5 Plt Count 154 MPV 10.8 H Sodium 140 Potassium 3.2 L Chloride 108 H Carbon Dioxide 24 Anion Gap 8.0 BUN 19 H Creatinine 0.73 Est Cr Clr Drug Dosing 88.2 Est GFR ( Amer) 112.8 Est GFR (Non-Af Amer) 97.3 BUN/Creatinine Ratio 26.2 H Glucose 111 H Calcium 8.9 C-Reactive Protein 2.65 H Medications Administered Current Inpatient Medications Acetaminophen (Acetaminophen 325 Mg Tab) 650 mg PO Q4H PRN PRN Reason: pain or fever Stop: 04/02/21 09:33 Last Admin: 03/07/21 20:53 Dose: 650 mg Documented by: Hydrocodone Bitart/Acetaminophen (Hydrocodone/Acetaminophen 10/325 Tab) 1 tab PO Q6H PRN PRN Reason: pain Stop: 03/17/21 09:33 Albuterol (Albuterol Hfa 8 Gm Inhaler) 2 puffs INH Q4R PRN PRN Reason: sob Stop: 04/02/21 09:33 Amoxicillin (Amoxicillin 500 Mg Cap) 500 mg PO BIDM [facility]; Protocol Stop: 03/10/21 23:59 Last Admin: 03/07/21 16:24 Dose: 500 mg Documented by: Aspirin (Aspirin 81 Mg Ectab) 81 mg PO QAM [facility] Stop: 04/02/21 09:59 Last Admin: 03/07/21 08:45 Dose: 81 mg Documented by: Atorvastatin Calcium (Atorvastatin 40 Mg Tab) 80 mg PO HS [facility] Stop: 04/02/21 20:59 Last Admin: 03/07/21 20:47 Dose: 80 mg Documented by: Azithromycin ([facility]romycin 250 Mg Tab) [facility] Stop: 03/13/21 11:44 Last Admin: 03/07/21 08:46 Dose: 500 mg Documented by: Baclofen (Baclofen 10 Mg Tab) 10 mg PO TID PRN PRN Reason: Pain Stop: 04/02/21 09:33 Last Admin: 03/06/21 18:44 Dose: 10 mg Documented by: Calcium Carbonate (Calcium Carbonate 500 Mg Chewable Tab) 500 mg PO Q6 PRN PRN Reason: Indigestion Stop: 04/05/21 07:51 Last Admin: 03/07/21 18:27 Dose: 500 mg Documented by: Enoxaparin Sodium (Enoxaparin Inj 60 Mg/0.6 Ml Syr) 60 mg SQ Q12H [facility] Stop: 04/07/21 22:59 Fluticasone Propionate (Fluticasone Propionate Na Spr 16 Gm Btl) 1 sprays NA Q12 [facility] Stop: 04/06/21 08:59 Last Admin: 03/07/21 20:48 Dose: 1 sprays Documented by: Guaifenesin (Guaifenesin 600 Mg Tabcr) 1,200 mg PO Q12 [facility] Stop: 04/05/21 20:59 Last Admin: 03/07/21 20:46 Dose: 1,200 mg Documented by: Dexamethasone 6 mg/ Syringe 1.5 mls @ 1 mls/min IV DAILY@0800 [facility] Stop: 04/03/21 07:59 Last Admin: 03/07/21 08:45 Dose: 1 mls/min Documented by: Promethazine HCl 12.5 mg/ (Sodium Chloride) 50.5 mls @ 202 mls/hr IV Q6H PRN PRN Reason: Nausea And Vomiting Stop: 04/04/21 13:42 Last Infusion: 03/07/21 13:07 Dose: Infused Documented by: Lorazepam (Lorazepam 0.5 Mg Tab) 0.5 mg PO Q8 PRN PRN Reason: Anxiety Stop: 04/04/21 13:41 Last Admin: 03/07/21 17:05 Dose: 0.5 mg Documented by: Lorazepam (Lorazepam 1 Mg Tab) 1 mg PO HS [facility] Stop: 04/04/21 20:59 Last Admin: 03/07/21 20:54 Dose: 1 mg Documented by: Lorazepam (Lorazepam 0.5 Mg Tab) 0.5 mg PO QAM [facility] Stop: 04/05/21 08:59 Last Admin: 03/07/21 08:45 Dose: 0.5 mg Documented by: Oxybutynin Chloride (Oxybutynin Chloride 5 Mg Tab) 5 mg PO TID PRN PRN Reason: bladder spasms Stop: 04/02/21 09:33 Last Admin: 03/04/21 08:11 Dose: 5 mg Documented by: Pantoprazole Sodium (Pantoprazole 40 Mg Tab) 40 mg PO QAM [facility] Stop: 04/05/21 08:59 Last Admin: 03/07/21 08:46 Dose: 40 mg Documented by: Polyethylene Glycol (Polyethylene (Miralax) 17 Gm Pack) 17 gm PO DAILY PRN PRN Reason: Constipation Stop: 04/05/21 08:59 Senna/Docusate Sodium (Docusate Sodium/Senna 50/8.6mg Tab) 3 tab PO QPM [facility] Stop: 04/05/21 20:59 Last Admin: 03/07/21 20:45 Dose: 3 tab Documented by: Tamsulosin HCl (Tamsulosin Hcl 0.4 Mg Cap) 0.4 mg PO BID [facility] Stop: 04/02/21 09:59 Last Admin: 03/07/21 20:46 Dose: 0.4 mg Documented by: PG Care Time/CCT Total # of Minutes Spent Total Time Spent with Patient: Total time spent is greater than 50% in coordination of care (as documented) at patient's floor/unit and/or counseling patient: Coding Level of Care Code 47287 Subseq Hosp Care Lvl 2 Diagnoses Pulmonary emboli I26.99 COVID-19 U07.1 Hypoxia R09.[address] Z97.8 CAD (coronary artery disease) I25.10 Associated angina: without angina Coronary Disease-Associated Artery/Lesion type: [place] artery [place] vs. transplanted heart: [place] heart Anxiety F41.9 Constipation K59.00 GERD (gastroesophageal reflux disease) K21.9 (1) CAD (coronary artery disease) Associated angina: without angina Coronary Disease-Associated Artery/Lesion type: [place] artery [place] vs. transplanted heart: [place] heart Qualified Code(s): I25.10 - Atherosclerotic heart disease of [place] coronary artery without angina pectoris
[2021-03-08] MEDS: guaiFENesin 600 MG TABCR PO SCH ×2 (08:10→21:28)
[2021-03-08] MEDS: PANTOprazole 40 MG TAB PO SCH (08:11)
[2021-03-08] MEDS: TAMSULOSIN HCL 0.4 MG CAP PO SCH ×2 (08:11→21:29)
[2021-03-08] MEDS: dexAMETHasone 6 MG in SYRINGE 0 ML IV SCH (08:11)
[2021-03-08] MEDS: AMOXICILLIN 500 MG CAP PO SCH ×2 (08:11→16:20)
[2021-03-08] MEDS: FLUTICASONE PROPIONATE NA SPR 16 GM BTL SCH ×2 (08:12→21:32)
[2021-03-08] MEDS: AZITHROMYCIN 250 MG TAB PO SCH (08:12)
[2021-03-08] MEDS: ASPIRIN 81 MG ECTAB PO SCH (08:12)
[2021-03-08] MEDS: LORazepam 0.5 MG TAB PO SCH (08:17)
[2021-03-08] MEDS: ACETAMINOPHEN 325 MG TAB PO PRN (08:17)
[2021-03-08] MEDS: CALCIUM CARBONATE 500 MG CHEWABLE TAB PO PRN (08:17)
[2021-03-08] MEDS: METOPROLOL TARTRATE 25 MG TAB PO SCH (09:06)
[2021-03-08] MEDS: NYSTATIN SUSP 500,000 U/5 ML UDC PO SCH ×3 (13:03→21:30)
[2021-03-08] MEDS: LORazepam 1 MG TAB PO SCH (21:27)
[2021-03-08] MEDS: DOCUSATE SODIUM/SENNA 50/8.6MG TAB PO SCH (21:27)
[2021-03-08] MEDS: ATORVASTATIN 40 MG TAB PO SCH (21:29)
[2021-03-08] MEDS: ENOXAPARIN INJ 60 MG/0.6 ML SYR SQ SCH (21:31)
[2021-03-08] MEDS: BACLOFEN 10 MG TAB PO PRN (21:46)
--- NOTE | 2021-03-08 22:59 | Electrocardiogram Report ---
Test Reason : Blood Pressure : / mmHG Vent. Rate : 119 BPM Atrial Rate : 119 BPM P-R Int : 134 ms QRS Dur : 084 ms QT Int : 310 ms P-R-T Axes : 023 -05 -09 degrees QTc Int : 436 ms Sinus tachycardia with occasional Premature ventricular complexes Possible Left atrial enlargement Abnormal ECG When compared with ECG of 03-MAR-2021 04:27, Premature ventricular complexes are now Present Confirmed by Joseph Alonzo ([id number]) on 03/08/2021 10:58:42 PM Referred By: REFERRED SELF Confirmed By:Joseph Alonzo
[2021-03-09 06:40] LABS: BUN Creatinine Ratio 34.2 (10-20); C Reactive Protein 11.1 mg/dl (0-0.29); Calcium 9.1 mg/dl (8.5-10.1); Creatinine Clr Calc Pharmacy 132.4 ml/min; Est GFR (Non-African American) 115.6 ml/min; Potassium 3.7 mmol/L (3.5-5.1)
[2021-03-09] MEDS: dexAMETHasone 6 MG in SYRINGE 0 ML IV SCH (08:27)
[2021-03-09] MEDS: NYSTATIN SUSP 500,000 U/5 ML UDC PO SCH ×4 (08:28→20:35)
[2021-03-09] MEDS: METOPROLOL TARTRATE 25 MG TAB PO SCH (08:28)
[2021-03-09] MEDS: guaiFENesin 600 MG TABCR PO SCH ×2 (08:28→20:34)
[2021-03-09] MEDS: TAMSULOSIN HCL 0.4 MG CAP PO SCH ×2 (08:28→20:36)
[2021-03-09] MEDS: AMOXICILLIN 500 MG CAP PO SCH ×2 (08:28→16:55)
[2021-03-09] MEDS: PANTOprazole 40 MG TAB PO SCH (08:29)
[2021-03-09] MEDS: ASPIRIN 81 MG ECTAB PO SCH (08:29)
[2021-03-09] MEDS: FLUTICASONE PROPIONATE NA SPR 16 GM BTL SCH ×2 (08:29→20:34)
[2021-03-09] MEDS: AZITHROMYCIN 250 MG TAB PO SCH (08:29)
[2021-03-09] MEDS: ACETAMINOPHEN 325 MG TAB PO PRN ×2 (08:36→12:30)
[2021-03-09] MEDS: LORazepam 0.5 MG TAB PO SCH (08:36)
--- NOTE | 2021-03-09 09:44 | Hospitalist Progress Note ---
Date of Service March 09, 2021 Assessment & Plan (1) Pulmonary emboli: could be subacute based on appearance of clots on CT, discussed with radiology clots in segmental and subsegmental branches of right lower lobe and lingula changed to Lovenox 1mg/kg q12 after results of CT will change to Xarelto 15mg BID starting this evening would plan for 6-12 months of treatment (2) COVID-19: acute respiratory failure with hypoxia continue dexamethasone 6mg IV daily, day 7 completed 5 days of Remdesivir continues to lay prone today, encouraged him to do this several times a day for several hours incentive spirometer, flutter valve (coughed up significant mucous today) add Mucinex to loosen sputum add Zithromax 500mg daily on 03/07, day 3 of 5 today CXR on 03/06 with improving infiltrates CTA chest with bilateral ground glass opacities, predominantly in the bases no role for Tocilizumab at this time as CRP trending down some crackles bilaterally on exam, will give Lasix 20mg IV x 1 and see how he responds (3) Hypoxia: acute hypoxic respiratory failure due to COVID 19 pneumonia was up to 7L wall high flow on 03/08, down to 4L today, even when sitting up and moving around continue above treatment will give Lasix 20mg IV x 1 to see if we can dry out lungs and improve oxygen (4) Davis catheter in place: For urinary retention - chronic issue due to prostate CA -Continue Flomax -Routine catheter care q shift (5) CAD (coronary artery disease): No CP -Continue home medications, ASA, Atorvastatin, Metoprolol (6) Anxiety: better with scheduled Ativan 0.5mg AM and 1mg HS can have additional 0.5mg PO q8 PRN for panic attacks (7) Constipation: corrected his regimen, he takes Senokot S three tablets at night had a BM today (8) GERD (gastroesophageal reflux disease): Tums q6 PRN and protonix 40mg daily feeling better the past 24 hours, no severe symptoms this morning Admission and Anticipated Discharge Date Admission Date: March 03, 2021 Subjective patient sitting up at the sink getting washed up, feels a lot better today, breathing easier no fever/chills, no nausea, no diarrhea, no chest pain he coughed up significant mucous this morning and ever since he has felt even better ate entire breakfast reviewed labs, Cr is 0.4, CRP went up to 11, not sure why, does not correlate with how he is feeling clinically on exam he has bilateral crackles, will give Lasix 20mg IV and see how he responds Review of Systems Review of Systems: All systems reviewed & are unremarkable except as noted in Subjective Physical Exam Constitutional: WD/WN, vitals as above comfortable; no acute distress Neck: trachea midline, no thyromegaly Respiratory: normal respiratory effort and + cough; no labored breathing Auscultation: + crackles (bilaterally); no rales and no wheezes Cardiovascular: RRR, no murmur, no edema Gastrointestinal (Abdomen): normal bowel sounds, soft, nontender, no hepatosplenomegaly Musculoskeletal: no cyanosis or clubbing, extremities motor strength 5/5 Skin: no rashes, warm and dry Neurologic: patellar DTR's 2+ bilat, sensation intact and PERRL, EOMI, accommodation nl, no face palsy, no dysarthria Psychiatric: A+Ox3, euthymic affect Lymphatic: no cervical or axillary lymphadenopathy Results & Data Results & Data ([facility]) Vital Signs (Past 12 Hours) Vital Signs Temp Pulse Pulse Resp BP Pulse Ox 03/09/21 07:19 36.5 C 86 20 113/72 90 03/09/21 02:41 36.6 C 78 20 110/79 92 03/08/21 23:59 79 03/08/21 23:32 36.8 C 85 20 117/73 92 Laboratory Results Laboratory Results - last 24 hr 03/09/21 05:38 Sodium 139 Potassium 3.7 D Chloride 110 H Carbon Dioxide 25 Anion Gap 4.0 BUN 17 Creatinine 0.48 L Est Cr Clr Drug Dosing 132.4 Est GFR ( Amer) 134.0 Est GFR (Non-Af Amer) 115.6 BUN/Creatinine Ratio 34.2 H Glucose 122 H Calcium 9.1 C-Reactive Protein 11.10 H Medications Administered Current Inpatient Medications Acetaminophen (Acetaminophen 325 Mg Tab) 650 mg PO Q4H PRN PRN Reason: pain or fever Stop: 04/02/21 09:33 Last Admin: 03/09/21 08:36 Dose: 650 mg Documented by: Hydrocodone Bitart/Acetaminophen (Hydrocodone/Acetaminophen 10/325 Tab) 1 tab PO Q6H PRN PRN Reason: pain Stop: 03/17/21 09:33 Albuterol (Albuterol Hfa 8 Gm Inhaler) 2 puffs INH Q4R PRN PRN Reason: sob Stop: 04/02/21 09:33 Amoxicillin (Amoxicillin 500 Mg Cap) 500 mg PO BIDM [facility]; Protocol Stop: 03/10/21 23:59 Last Admin: 03/09/21 08:28 Dose: 500 mg Documented by: Aspirin (Aspirin 81 Mg Ectab) 81 mg PO QAM [facility] Stop: 04/02/21 09:59 Last Admin: 03/09/21 08:29 Dose: 81 mg Documented by: Atorvastatin Calcium (Atorvastatin 40 Mg Tab) 80 mg PO [facility] Stop: 04/02/21 20:59 Last Admin: 03/08/21 21:29 Dose: 80 mg Documented by: Azithromycin (Azithromycin 250 Mg Tab) [facility] [place] Stop: 03/13/21 11:44 Last Admin: 03/09/21 08:29 Dose: 500 mg Documented by: Baclofen (Baclofen 10 Mg Tab) 10 mg PO TID PRN PRN Reason: Pain Stop: 04/02/21 09:33 Last Admin: 03/08/21 21:46 Dose: 10 mg Documented by: Calcium Carbonate (Calcium Carbonate 500 Mg Chewable Tab) 500 mg PO Q6 PRN PRN Reason: Indigestion Stop: 04/05/21 07:51 Last Admin: 03/08/21 08:17 Dose: 500 mg Documented by: Enoxaparin Sodium (Enoxaparin Inj 60 Mg/0.6 Ml Syr) 60 mg SQ Q12H [facility] Stop: 04/07/21 22:59 Last Admin: 03/08/21 21:31 Dose: 60 mg Documented by: Fluticasone Propionate (Fluticasone Propionate Na Spr 16 Gm Btl) 1 sprays NA Q12 [facility] Stop: 04/06/21 08:59 Last Admin: 03/09/21 08:29 Dose: 1 sprays Documented by: Guaifenesin (Guaifenesin 600 Mg Tabcr) 1,200 mg PO Q12 [facility] Stop: 04/05/21 20:59 Last Admin: 03/09/21 08:28 Dose: 1,200 mg Documented by: Dexamethasone 6 mg/ Syringe 1.5 mls @ 1 mls/min IV DAILY@0800 [facility] Stop: 04/03/21 07:59 Last Admin: 03/09/21 08:27 Dose: 1 mls/min Documented by: Promethazine HCl 12.5 mg/ (Sodium Chloride) 50.5 mls @ 202 mls/hr IV Q6H PRN PRN Reason: Nausea And Vomiting Stop: 04/04/21 13:42 Last Infusion: 03/07/21 13:07 Dose: Infused Documented by: Lorazepam (Lorazepam 0.5 Mg Tab) 0.5 mg PO Q8 PRN PRN Reason: Anxiety Stop: 04/04/21 13:41 Last Admin: 03/07/21 17:05 Dose: 0.5 mg Documented by: Lorazepam (Lorazepam 1 Mg Tab) 1 mg PO HS [facility] Stop: 04/04/21 20:59 Last Admin: 03/08/21 21:27 Dose: 1 mg Documented by: Lorazepam (Lorazepam 0.5 Mg Tab) 0.5 mg PO QAM [facility] Stop: 04/05/21 08:59 Last Admin: 03/09/21 08:36 Dose: 0.5 mg Documented by: Metoprolol Tartrate (Metoprolol Tartrate 25 Mg Tab) 12.5 mg PO QAM [facility] Stop: 04/07/21 08:59 Last Admin: 03/09/21 08:28 Dose: 12.5 mg Documented by: Nystatin (Nystatin Susp 500,000 U/5 Ml Udc) 5 ml PO QID [facility] Stop: 03/18/21 12:59 Last Admin: 03/09/21 08:28 Dose: 5 ml Documented by: Oxybutynin Chloride (Oxybutynin Chloride 5 Mg Tab) 5 mg PO TID PRN PRN Reason: bladder spasms Stop: 04/02/21 09:33 Last Admin: 03/04/21 08:11 Dose: 5 mg Documented by: Pantoprazole Sodium (Pantoprazole 40 Mg Tab) 40 mg PO QAM [facility] Stop: 04/05/21 08:59 Last Admin: 03/09/21 08:29 Dose: 40 mg Documented by: Polyethylene Glycol (Polyethylene (Miralax) 17 Gm Pack) 17 gm PO DAILY PRN PRN Reason: Constipation Stop: 04/05/21 08:59 Senna/Docusate Sodium (Docusate Sodium/Senna 50/8.6mg Tab) 3 tab PO QPM [facility] Stop: 04/05/21 20:59 Last Admin: 03/08/21 21:27 Dose: 1 tab Documented by: Tamsulosin HCl (Tamsulosin Hcl 0.4 Mg Cap) 0.4 mg PO BID [facility] Stop: 04/02/21 09:59 Last Admin: 03/09/21 08:28 Dose: 0.4 mg Documented by: PG Care Time/CCT Total # of Minutes Spent Total Time Spent with Patient: Total time spent is greater than 50% in coordination of care (as documented) at patient's floor/unit and/or counseling patient: Coding Level of Care Code 71245 Subseq Hosp Care Lvl 2 Diagnoses Pulmonary emboli I26.99 COVID-19 U07.1 Hypoxia R09.[address] Z97.8 CAD (coronary artery disease) I25.10 Coronary Disease-Associated Artery/Lesion type: [place] artery [place] vs. transplanted heart: [place] heart Associated angina: without angina Anxiety F41.9 Constipation K59.00 GERD (gastroesophageal reflux disease) K21.9 (1) CAD (coronary artery disease) Coronary Disease-Associated Artery/Lesion type: [place] artery [place] vs. transplanted heart: [place] heart Associated angina: without angina Qualified Code(s): I25.10 - Atherosclerotic heart disease of [place] coronary artery without angina pectoris
[2021-03-09] MEDS ORDERED: POTASSIUM CHLORIDE CRTAB 20 MEQ TABCR PO STA (09:52)
[2021-03-09] MEDS ORDERED: FUROSEMIDE 20 MG in SYRINGE 0 ML IV ONE (09:52)
[2021-03-09] MEDS ORDERED: FUROSEMIDE 40 MG/4 ML VIAL IV ONE (10:00)
[2021-03-09] MEDS: ENOXAPARIN INJ 60 MG/0.6 ML SYR SQ SCH (12:27)
[2021-03-09] MEDS: BACLOFEN 10 MG TAB PO PRN ×2 (12:30→20:34)
[2021-03-09] MEDS: RIVAROXABAN 15 MG TAB PO SCH (20:37)
[2021-03-09] MEDS: ATORVASTATIN 40 MG TAB PO SCH (20:37)
[2021-03-09] MEDS: DOCUSATE SODIUM/SENNA 50/8.6MG TAB PO SCH (20:38)
[2021-03-09] MEDS: LORazepam 1 MG TAB PO SCH (21:53)
[2021-03-10 06:24] LABS: Hemoglobin 12.6 g/dL (14.0-18.0); Mean Corpuscular Hemoglobin 30.4 pg (25-34); Mean Corpuscular Volume 86.7 fL (80-100); Mean Platelet Volume 10.7 fL (7.4-10.4); Platelet Count 230 K/uL (130-400); RDW Coefficient of Variation 13.4 % (11.5-14.5); RDW Standard Deviation 42.9 fL (36.4-46.3); Red Blood Count 4.15 M/uL (4.7-6.1); White Blood Count 6.08 K/uL (4.8-10.8)
[2021-03-10 06:52] LABS: BUN Creatinine Ratio 27.5 (10-20); C Reactive Protein 3.93 mg/dl (0-0.29); Calcium 9.3 mg/dl (8.5-10.1); Creatinine Clr Calc Pharmacy 95.3 ml/min; Est GFR (African American) 120.7 ml/min; Est GFR (Non-African American) 104.1 ml/min; Potassium 3.8 mmol/L (3.5-5.1)
[2021-03-10] MEDS: dexAMETHasone 6 MG in SYRINGE 0 ML IV SCH (07:52)
[2021-03-10] MEDS: PANTOprazole 40 MG TAB PO SCH (07:52)
[2021-03-10] MEDS: RIVAROXABAN 15 MG TAB PO SCH ×2 (07:52→20:34)
[2021-03-10] MEDS: METOPROLOL TARTRATE 25 MG TAB PO SCH (07:52)
[2021-03-10] MEDS: AZITHROMYCIN 250 MG TAB PO SCH (07:52)
[2021-03-10] MEDS: guaiFENesin 600 MG TABCR PO SCH ×2 (07:52→20:33)
[2021-03-10] MEDS: NYSTATIN SUSP 500,000 U/5 ML UDC PO SCH ×4 (07:53→20:33)
[2021-03-10] MEDS: ASPIRIN 81 MG ECTAB PO SCH (07:53)
[2021-03-10] MEDS: TAMSULOSIN HCL 0.4 MG CAP PO SCH ×2 (07:53→20:33)
[2021-03-10] MEDS: FLUTICASONE PROPIONATE NA SPR 16 GM BTL SCH ×2 (07:53→20:35)
[2021-03-10] MEDS: AMOXICILLIN 500 MG CAP PO SCH ×2 (07:53→15:48)
[2021-03-10] MEDS: LORazepam 0.5 MG TAB PO SCH (07:56)
[2021-03-10] MEDS: ACETAMINOPHEN 325 MG TAB PO PRN (07:56)
[2021-03-10] MEDS: BACLOFEN 10 MG TAB PO PRN ×2 (11:16→20:32)
[2021-03-10] MEDS ORDERED: FUROSEMIDE 20 MG TAB PO ONE (15:01)
--- NOTE | 2021-03-10 18:47 | Hospitalist Progress Note ---
Date of Service March 10, 2021 Assessment & Plan (1) Acute respiratory failure with hypoxia: 2nd to COVID-19 pneumonia along with PEs. Cont supportive care for COVID-19. Cont xarelto for PEs. Give another small dose of PO lasix today to maintain net negative fluid balance although patient w/o overt signs of volume overload. Cont pulmonary toilet, proning, etc. (2) Pneumonia due to COVID-19 virus: day #8 of dexamethasone. plan 10 days in total. pulmonary toilet, proning, treat PEs, etc. order k-pad heating pad for musculoskeletal pain from coughing (3) Pulmonary emboli: continue Xarelto 15mg BID would plan for 6 months of Rx consider checking dopplers of legs while here for residual DVT (4) Davis catheter in place: For urinary retention 2nd to prostate CA Continue Flomax Routine catheter exchange due in late February (5) CAD (coronary artery disease): no ischemic symptoms at this time continue home medications including ASA, Atorvastatin, Metoprolol (6) Anxiety: cont ativan 0.5mg AM and 1mg HS (7) Constipation: cont bowel regimen for maintenance (8) GERD (gastroesophageal reflux disease): PPI (9) Catheter-associated urinary tract infection: cont amoxicillin for enterococcal UTI (urine cx from 02/21/21) has received at least 7 days of Rx needs JOE to r/o prostatitis; if present would need longer course of abx (10) Prostate cancer: noted (11) DVT prophylaxis: xarelto 15mg bid left message for daughter on her voicemail Admission and Anticipated Discharge Date Admission Date: March 03, 2021 Subjective tele stable overnight upon my arrival for rounds he was proning 02 sats on 1 L NC while proned - 90-92% with supine positioning he was upper 80s main complaint was that of costal margin pain from coughing eating better cough is dry his spirits are staying ok in the midst of his illness Review of Systems Constitutional: + fatigue; no fever and no chills Respiratory: + cough and + pain on inspiration Cardiovascular: as per Subjective / HPI and + chest pain; no edema Gastrointestinal: no abdominal pain Physical Exam Constitutional: + thin and + frail appearing; no acute distress and no altered mental status ENMT: external ear and nose normal, oropharynx normal Mouth: no oral mucosal abnormality (thrush resolved ) Respiratory: no respiratory distress Auscultation: + crackles (faint rales b/l bases ); no wheezes Cardiovascular: Rate/Rhythm: regular rate and regular rhythm Heart Sounds: normal S1 and normal S2; no murmur Vessels: posterior tibial pulses present and dorsalis pedis pulses present; no JVD Extremities: no edema Gastrointestinal (Abdomen): normal bowel sounds, soft, nontender, no hepatosplenomegaly Psychiatric: A+Ox3, euthymic affect Results & Data Results & Data ([facility]) Vital Signs (Past 12 Hours) Vital Signs Temp Pulse Resp BP Pulse Ox Pulse Ox 03/10/21 15:20 36.7 C 84 20 116/65 90 03/10/21 09:00 90 03/10/21 07:48 36.7 C 83 18 123/85 90 Laboratory Results Laboratory Results - last 24 hr 03/10/21 03/10/21 05:41 05:41 WBC 6.08 RBC 4.15 L Hgb 12.6 L Hct 36.0 L MCV 86.7 MCH 30.4 MCHC 35.0 RDW Std Deviation 42.9 RDW Coeff of Maikel 13.4 Plt Count 230 MPV 10.7 H Sodium 140 Potassium 3.8 Chloride 110 H Carbon Dioxide 23 Anion Gap 7.0 BUN 17 Creatinine 0.62 Est Cr Clr Drug Dosing 95.3 Est GFR ( Amer) 120.7 Est GFR (Non-Af Amer) 104.1 BUN/Creatinine Ratio 27.5 H Glucose 105 H Calcium 9.3 C-Reactive Protein 3.93 H PG Care Time/CCT Total # of Minutes Spent Total Time Spent with Patient: Total time spent is greater than 50% in coordination of care (as documented) at patient's floor/unit and/or counseling patient: Coding Level of Care Code 38633 Subseq Hosp Care Lvl 2 Diagnoses Acute respiratory failure with hypoxia J96.01 Pneumonia due to COVID-19 virus U07.1; J12.82 Pulmonary emboli I26.[address] Z97.8 CAD (coronary artery disease) I25.10 Associated angina: without angina Coronary Disease-Associated Artery/Lesion type: [place] artery [place] vs. transplanted heart: [place] heart Anxiety F41.9 Constipation K59.00 GERD (gastroesophageal reflux disease) K21.9 Catheter-associated urinary tract infection T83.511A; N39.0 Prostate cancer C61 DVT prophylaxis Z29.9 (1) CAD (coronary artery disease) Associated angina: without angina Coronary Disease-Associated Artery/Lesion type: [place] artery [place] vs. transplanted heart: [place] heart Qualified Code(s): I25.10 - Atherosclerotic heart disease of [place] coronary artery without angina pectoris
[2021-03-10] MEDS: DOCUSATE SODIUM/SENNA 50/8.6MG TAB PO SCH (20:31)
[2021-03-10] MEDS: ATORVASTATIN 40 MG TAB PO SCH (20:34)
[2021-03-10] MEDS: LORazepam 1 MG TAB PO SCH (21:28)
[2021-03-11 06:51] LABS: Calcium 8.7 mg/dl (8.5-10.1); Creatinine Clr Calc Pharmacy 102.3 ml/min; Est GFR (African American) 120.7 ml/min; Est GFR (Non-African American) 104.1 ml/min; Potassium 3.5 mmol/L (3.5-5.1)
[2021-03-11] MEDS: dexAMETHasone 6 MG in SYRINGE 0 ML IV SCH (07:56)
[2021-03-11] MEDS: guaiFENesin 600 MG TABCR PO SCH ×2 (07:57→19:54)
[2021-03-11] MEDS: NYSTATIN SUSP 500,000 U/5 ML UDC PO SCH ×4 (07:57→19:53)
[2021-03-11] MEDS: TAMSULOSIN HCL 0.4 MG CAP PO SCH ×2 (07:57→19:53)
[2021-03-11] MEDS: RIVAROXABAN 15 MG TAB PO SCH ×2 (07:58→19:54)
[2021-03-11] MEDS: PANTOprazole 40 MG TAB PO SCH (07:58)
[2021-03-11] MEDS: ASPIRIN 81 MG ECTAB PO SCH (07:58)
[2021-03-11] MEDS: METOPROLOL TARTRATE 25 MG TAB PO SCH (07:58)
[2021-03-11] MEDS: FLUTICASONE PROPIONATE NA SPR 16 GM BTL SCH ×2 (07:59→19:55)
[2021-03-11] MEDS: LORazepam 0.5 MG TAB PO SCH (08:04)
[2021-03-11] MEDS: ACETAMINOPHEN 325 MG TAB PO PRN ×2 (08:04→21:21)
[2021-03-11] MEDS: BACLOFEN 10 MG TAB PO PRN ×2 (10:16→21:21)
[2021-03-11] MEDS: CALCIUM CARBONATE 500 MG CHEWABLE TAB PO PRN (10:16)
--- NOTE | 2021-03-11 10:41 | XRay Report ---
XR chest 1V portable CLINICAL HISTORY: COVID-19 pneumonia, interval change COMPARISON STUDY: Chest radiograph March 06, 2021. Chest CT March 07, 2021. FINDINGS: Lung volumes are normal. There is no pneumothorax or pleural effusion. Underlying emphysema is better depicted on chest CT. Moderate bilateral airspace opacities have slightly progressed since prior chest CT. IMPRESSION: Slight progression of bilateral airspace opacities consistent with viral pneumonia. ACT 112: Negative or not required by law. Electronically signed by: Bret Ruiz M.D. 03/11/2021 10:40 AM
[2021-03-11] MEDS ORDERED: FUROSEMIDE 20 MG TAB PO ONE (11:30)
[2021-03-11] MEDS: POTASSIUM CHLORIDE PWD 20 MEQ PACK PO SCH (13:07)
[2021-03-11] MEDS: ATORVASTATIN 40 MG TAB PO SCH (19:53)
[2021-03-11] MEDS: OXYBUTYNIN CHLORIDE 5 MG TAB PO SCH (19:54)
[2021-03-11] MEDS: DOCUSATE SODIUM/SENNA 50/8.6MG TAB PO SCH (19:54)
[2021-03-11] MEDS: LORazepam 1 MG TAB PO SCH (21:21)
--- NOTE | 2021-03-11 23:06 | Hospitalist Progress Note ---
Date of Service March 11, 2021 Assessment & Plan (1) Acute respiratory failure with hypoxia: 2nd to COVID-19 pneumonia along with PEs. IMPROVING. NC O2 has been weaned nicely over last few days. Cont supportive care for COVID-19. Cont xarelto for PEs. Give another small dose of PO lasix today to maintain net negative fluid balance; repeat labs am. Cont pulmonary toilet, proning, etc. Moving from COVID unit to [facility] today. (2) Pneumonia due to COVID-19 virus: day #9 of dexamethasone. plan 10 days in total. pulmonary toilet, proning, treat PEs, etc. IMPROVING. (3) Pulmonary emboli: continue Xarelto 15mg BID would plan for 6 months of Rx check dopplers of legs for residual DVT risk factors - severe COVID prostate ca immobility (4) Spring catheter in place: For urinary retention 2nd to prostate CA Continue Flomax Routine catheter exchange due in late February needs JOE to r/o prostatitis (5) CAD (coronary artery disease): no ischemic symptoms at this time continue home medications including ASA, Atorvastatin, Metoprolol (6) Anxiety: cont ativan 0.5mg AM and 1mg HS (7) Constipation: cont bowel regimen for maintenance (8) GERD (gastroesophageal reflux disease): PPI (9) Catheter-associated urinary tract infection: s/p amoxicillin course for enterococcal UTI (urine cx from 02/21/21) needs JOE to r/o prostatitis; if present would need longer course of abx (10) Prostate cancer: noted dx early 2020 (11) Transaminitis: 2nd COVID-19 mild repeat ast/alt in 2-3 days for stability (12) DVT prophylaxis: xarelto 15mg bid left message for daughter on her voicemail yesterday will update family again tomorrow I am pleased with his progress Admission and Anticipated Discharge Date Admission Date: March 03, 2021 Subjective patient overall cont to feel better mild cough mild JORDAN no dyspnea at rest cont with proning, incentive, flutter eating "very well" no diarrhea, N/V, abd pain minimal chest tightness w/ coughing we had lengthy discussion about his prostate ca dx in 11/2020 underwent radioactive seed implantation has had spring catheter since then attempts to remove catheter have been unsuccessful Review of Systems Constitutional: no fever and no chills Respiratory: no hemoptysis and no sputum production Cardiovascular: no chest pain Gastrointestinal: no abdominal pain and no diarrhea/loose stools Physical Exam Constitutional: + thin and + frail appearing; no acute distress and no altered mental status ENMT: external ear and nose normal, oropharynx normal Respiratory: no respiratory distress Auscultation: + crackles (b/l bases ); no wheezes Cardiovascular: Rate/Rhythm: regular rate and regular rhythm Heart Sounds: normal S1 and normal S2; no murmur Vessels: posterior tibial pulses present and dorsalis pedis pulses present; no JVD Extremities: no edema Gastrointestinal (Abdomen): normal bowel sounds, soft, nontender, no hepatosplenomegaly Musculoskeletal: left leg deformity - distal leg - chronic Psychiatric: A+Ox3, euthymic affect Results & Data Results & Data ([facility]) Vital Signs (Past 12 Hours) Vital Signs Temp Pulse Resp BP Pulse Ox 03/11/21 21:22 95 H 19 120/79 92 03/11/21 16:54 91 03/11/21 16:53 90 03/11/21 16:48 36.6 C 72 18 104/71 89 L 03/11/21 11:58 36.5 C 86 20 115/73 91 Laboratory Results Laboratory Results - last 24 hr 03/11/21 05:34 Sodium 139 Potassium 3.5 Chloride 107 Carbon Dioxide 26 Anion Gap 6.0 BUN 17 Creatinine 0.62 Est Cr Clr Drug Dosing 102.3 Est GFR ( Amer) 120.7 Est GFR (Non-Af Amer) 104.1 BUN/Creatinine Ratio 28.0 H Glucose 81 Calcium 8.7 AST 40 H ALT 81 H PG Care Time/CCT Total # of Minutes Spent Total Time Spent with Patient: Total time spent is greater than 50% in coordination of care (as documented) at patient's floor/unit and/or counseling patient: Coding Level of Care Code 85434 Subseq Hosp Care Lvl 3 Diagnoses Acute respiratory failure with hypoxia J96.01 Pneumonia due to COVID-19 virus U07.1; J12.82 Pulmonary emboli I26.[address] Z97.8 CAD (coronary artery disease) I25.10 Associated angina: without angina Coronary Disease-Associated Artery/Lesion type: [place] artery [place] vs. transplanted heart: [place] heart Anxiety F41.9 Constipation K59.00 GERD (gastroesophageal reflux disease) K21.9 Catheter-associated urinary tract infection T83.511A; N39.0 Prostate cancer C61 Transaminitis R74.01 DVT prophylaxis Z29.9 (1) CAD (coronary artery disease) Associated angina: without angina Coronary Disease-Associated Artery/Lesion type: [place] artery [place] vs. transplanted heart: [place] heart Qualified Code(s): I25.10 - Atherosclerotic heart disease of [place] coronary artery without angina pectoris
--- NOTE | 2021-03-12 06:31 | Ultrasound Report ---
BILATERAL LOWER EXTREMITY VENOUS DOPPLER HISTORY: Acute pain and swelling of the lower legs PEs; eval either leg for DVT COMPARISON STUDY: None. FINDINGS: There is normal compressibility, flow, and augmentation within the bilateral lower extremit y deep venous systems. IMPRESSION: No DVT within the right or left lower extremity. ACT 112: Negative or not required by law. Electronically signed by: Josh Ray M.D. 03/12/2021 6:29 AM
[2021-03-12 07:06] LABS: Calcium 9.9 mg/dl (8.5-10.1); Creatinine Clr Calc Pharmacy 84.6 ml/min; Est GFR (African American) 111.6 ml/min; Est GFR (Non-African American) 96.3 ml/min; Magnesium 2.3 mg/dl (1.8-2.4); Potassium 3.8 mmol/L (3.5-5.1)
[2021-03-12] MEDS: guaiFENesin 600 MG TABCR PO SCH ×2 (08:24→21:43)
[2021-03-12] MEDS: LORazepam 0.5 MG TAB PO SCH (08:24)
[2021-03-12] MEDS: METOPROLOL TARTRATE 25 MG TAB PO SCH (08:24)
[2021-03-12] MEDS: RIVAROXABAN 15 MG TAB PO SCH ×2 (08:26→21:42)
[2021-03-12] MEDS: NYSTATIN SUSP 500,000 U/5 ML UDC PO SCH ×4 (08:26→21:42)
[2021-03-12] MEDS: ASPIRIN 81 MG ECTAB PO SCH (08:26)
[2021-03-12] MEDS: PANTOprazole 40 MG TAB PO SCH (08:26)
[2021-03-12] MEDS: TAMSULOSIN HCL 0.4 MG CAP PO SCH ×2 (08:27→21:44)
[2021-03-12] MEDS: POTASSIUM CHLORIDE PWD 20 MEQ PACK PO SCH (08:27)
[2021-03-12] MEDS: OXYBUTYNIN CHLORIDE 5 MG TAB PO SCH ×2 (08:27→21:43)
[2021-03-12] MEDS: FLUTICASONE PROPIONATE NA SPR 16 GM BTL SCH ×2 (08:30→21:46)
[2021-03-12] MEDS: dexAMETHasone 6 MG in SYRINGE 0 ML IV SCH (09:33)
[2021-03-12] MEDS: BACLOFEN 10 MG TAB PO PRN ×2 (13:32→21:39)
[2021-03-12] MEDS: ACETAMINOPHEN 325 MG TAB PO PRN ×2 (13:32→21:39)
[2021-03-12] MEDS ORDERED: OXYBUTYNIN CHLORIDE 5 MG TAB PO STA (16:38)
[2021-03-12] MEDS ORDERED: PHENAZOPYRIDINE HCL 100 MG TAB PO PRN (16:38)
--- NOTE | 2021-03-12 21:07 | Hospitalist Progress Note ---
Date of Service March 12, 2021 Assessment & Plan (1) Acute respiratory failure with hypoxia: 2nd to COVID-19 pneumonia along with PEs. Cont supportive care for COVID-19. Cont xarelto for PEs. Cont pulmonary toilet, proning, etc. Likely will need 2-step ambulatory O2 test on day of discharge. (2) Pneumonia due to COVID-19 virus: day #10 of dexamethasone today - stop steroids. pulmonary toilet, proning, treat PEs, etc. overall improving very nicely. possible d/c home tomorrow? (3) Pulmonary emboli: continue Xarelto 15mg BID x 21 days, then 20mg daily thereafter would plan for 6 months of Rx at minimum dopplers of legs negative for DVT risk factors - COVID, prostate ca, etc (4) Spring catheter in place: For urinary retention 2nd to prostate CA Continue Flomax Routine catheter exchange due in late February (5) CAD (coronary artery disease): no ischemic symptoms at this time continue home medications including ASA, Atorvastatin, Metoprolol (6) Anxiety: cont ativan 0.5mg AM and 1mg HS (7) Constipation: cont bowel regimen for maintenance (8) GERD (gastroesophageal reflux disease): PPI (9) Catheter-associated urinary tract infection: completed amoxicillin course for enterococcal UTI (urine cx from 02/21/21) needs JOE to r/o prostatitis; if present would need longer course of abx will perform tomorrow (10) Prostate cancer: noted dx early 2020 follows with [facility] [place] [facility] - will need f/u with them post-d/c for management and spring management (11) DVT prophylaxis: xarelto 15mg bid spoke with his daughter Lynn by phone today about 25 minute phone call numerous questions re: his COVID, general health, vaccine for COVID, etc told her possible d/c home tomorrow total care activity time 35 min Admission and Anticipated Discharge Date Admission Date: March 03, 2021 Subjective patient feeling well mild JORDAN if he "does too much" - had such following cleaning up in bathroom this am but he is independent with ADLs scant cough eating "everything" no pain in any location we had lengthy discussion about his prostate ca, spring, etc mentioned a white discharge from his urethra this am Review of Systems Constitutional: + fatigue; no fever and no chills Respiratory: no hemoptysis and no wheezing Cardiovascular: no chest pain Gastrointestinal: no abdominal pain Physical Exam Constitutional: + thin; no acute distress and no altered mental status ENMT: external ear and nose normal, oropharynx normal Respiratory: no respiratory distress Auscultation: + crackles (faint rales b/l bases ); no wheezes Cardiovascular: Rate/Rhythm: regular rate and regular rhythm Heart Sounds: normal S1 and normal S2; no murmur Vessels: posterior tibial pulses present and dorsalis pedis pulses present; no JVD Extremities: no edema Gastrointestinal (Abdomen): normal bowel sounds, soft, nontender, no hepatosplenomegaly Musculoskeletal: deformity of leg leg - chronic Psychiatric: A+Ox3, euthymic affect Results & Data Results & Data ([facility]) Vital Signs (Past 12 Hours) Vital Signs Temp Pulse Resp BP Pulse Ox 03/12/21 16:00 36.5 C 74 16 112/70 95 Laboratory Results Laboratory Results - last 24 hr 03/12/21 05:48 Sodium 138 Potassium 3.8 Chloride 104 Carbon Dioxide 27 Anion Gap 7.0 BUN 17 Creatinine 0.75 Est Cr Clr Drug Dosing 84.6 Est GFR ( Amer) 111.6 Est GFR (Non-Af Amer) 96.3 BUN/Creatinine Ratio 23.0 H Glucose 94 Calcium 9.9 Magnesium 2.3 PG Care Time/CCT Total # of Minutes Spent Total Time Spent with Patient: Total time spent is greater than 50% in coordination of care (as documented) at patient's floor/unit and/or counseling patient: Coding Level of Care Code 97928 Subseq Hosp Care Lvl 3 Diagnoses Acute respiratory failure with hypoxia J96.01 Pneumonia due to COVID-19 virus U07.1; J12.82 Pulmonary emboli I26.[address] Z97.8 CAD (coronary artery disease) I25.10 Associated angina: without angina Coronary Disease-Associated Artery/Lesion type: [place] artery [place] vs. transplanted heart: [place] heart Anxiety F41.9 Constipation K59.00 GERD (gastroesophageal reflux disease) K21.9 Catheter-associated urinary tract infection T83.511A; N39.0 Prostate cancer C61 DVT prophylaxis Z29.9 (1) CAD (coronary artery disease) Associated angina: without angina Coronary Disease-Associated Artery/Lesion type: [place] artery [place] vs. transplanted heart: [place] heart Qualified Code(s): I25.10 - Atherosclerotic heart disease of [place] coronary artery witho ut angina pectoris
[2021-03-12] MEDS: LORazepam 1 MG TAB PO SCH (21:39)
[2021-03-12] MEDS: DOCUSATE SODIUM/SENNA 50/8.6MG TAB PO SCH (21:40)
[2021-03-12] MEDS: ATORVASTATIN 40 MG TAB PO SCH (21:43)
[2021-03-13 07:56] LABS: BUN Creatinine Ratio 22.9 (10-20); Calcium 8.6 mg/dl (8.5-10.1); Est GFR (African American) 114.1 ml/min; Est GFR (Non-African American) 98.5 ml/min; Potassium 3.9 mmol/L (3.5-5.1)
[2021-03-13 08:22] VITALS: TEMP 98.1
[2021-03-13] MEDS: FLUTICASONE PROPIONATE NA SPR 16 GM BTL SCH (08:24)
[2021-03-13] MEDS: ASPIRIN 81 MG ECTAB PO SCH (08:27)
[2021-03-13] MEDS: NYSTATIN SUSP 500,000 U/5 ML UDC PO SCH ×2 (08:27→12:33)
[2021-03-13] MEDS: POTASSIUM CHLORIDE PWD 20 MEQ PACK PO SCH (08:27)
[2021-03-13] MEDS: OXYBUTYNIN CHLORIDE 5 MG TAB PO SCH (08:27)
[2021-03-13] MEDS: TAMSULOSIN HCL 0.4 MG CAP PO SCH (08:27)
[2021-03-13] MEDS: METOPROLOL TARTRATE 25 MG TAB PO SCH (08:28)
[2021-03-13] MEDS: PANTOprazole 40 MG TAB PO SCH (08:28)
[2021-03-13] MEDS: RIVAROXABAN 15 MG TAB PO SCH (08:28)
[2021-03-13] MEDS: guaiFENesin 600 MG TABCR PO SCH (08:29)
[2021-03-13] MEDS: BACLOFEN 10 MG TAB PO PRN (08:53)
[2021-03-13] MEDS: LORazepam 0.5 MG TAB PO SCH (08:53)
[2021-03-13] MEDS ORDERED: SACCHAROMYCES BOULARDII 250 MG CAP PO SCH (12:15)
[2021-03-13] MEDS ORDERED: AMOXICILLIN 500 MG CAP PO SCH (14:00)
[2021-03-13 14:33] VITALS: O2SAT 91
--- NOTE | 2021-03-13 15:38 | Discharge Summary ---
Date of Service date of admission - March 03, 2021 date of discharge - March 13, 2021 Admission HPI Per Admitting Provider 66yo C male with history of CAD, Prostate CA s/p seed placement, indwelling Spring presenting with SOB. Symptoms of weakness/fatigue/cough/SOB and fever began 5 days ago. Progressive. Today with worsening cough and chest tightness associated with cough. Diarrhea. No additional complaints 83% on room air in the ER. Improved with supplemental O2 - currently 90-91% on 5L by NC - desaturates to 88-89% with speech or movement ER course: Dexamethasone 10mg IV, NSS, Zofran, Tylenol Principal Diagnosis acute hypoxic respiratory failure 2nd to COVID-19 pneumonia Discharge Exam Constitutional + thin; no acute distress and no altered mental status ENMT external ear and nose normal, oropharynx normal Mouth: no oral mucosal abnormality (thrush resolved ) Respiratory no respiratory distress Auscultation: + crackles (b/l bases - mild ); no wheezes Cardiovascular Rate/Rhythm: regular rate and regular rhythm Heart Sounds: normal S1 and normal S2; no murmur Vessels: posterior tibial pulses present and dorsalis pedis pulses present; no JVD Extremities: no edema Gastrointestinal (Abdomen) normal bowel sounds, soft, nontender, no hepatosplenomegaly JOE - prostate enlarged, mildly boggy, mildly tender to palpation Psychiatric A+Ox3, euthymic affect Discharge Data Allergies Allergy/AdvReac Type Severity Reaction Status Date / Time pollen extracts Allergy Unknown Watery Verified 01/19/21 12:10 eyes, burning sinsus No Known Drug Allergies Allergy Verified 01/19/21 12:10 Consultations Physical therapy Respiratory therapy Ordered Studies Chest X-Ray 03/03/21 04:42 XR chest 1V portable CLINICAL HISTORY: SEPSIS COMPARISON STUDY: Chest radiograph November 15, 2020. FINDINGS: Lung volumes are normal. There is no pneumothorax or pleural effusion. Moderate bilateral airspace opacities and interstitial thickening are noted, greater within the left lung. Cardiac size is at the upper limits of normal. IMPRESSION: Moderate bilateral airspace opacities and interstitial thickening, greater within the left lung. The findings favor an infectious process such as viral pneumonia. Radiographic follow-up to ensure resolution is recommended. ACT 112: Negative or not required by law. Electronically signed by: Bret Ruiz M.D. 03/03/2021 7:20 AM Chest X-Ray 03/06/21 11:30 XR chest 1V portable CLINICAL HISTORY: Hypoxemia, COVID COMPARISON STUDY: 03/03/2021 FINDINGS: The heart is borderline enlarged. There are bilateral pulmonary airspace opacities consistent with a multifocal pneumonia. Findings are mildly improved when compared the prior study.[ IMPRESSION: Slight improvement in the bilateral pulmonary airspace opacities. ACT 112: Negative or not required by law. Electronically signed by: Chacorta Mandujano M.D. 03/06/2021 12:51 PM Chest CTA 03/07/21 10:50 CT angio chest PE protocol CT DOSE: 362.58 mGycm HISTORY: 66 years-old Male with PE. Follow-up study in a patient with hypoxia and viral pneumonia TECHNIQUE: Multiple CTA images of the chest were obtained after the intravenous administration of 117 ml Optiray. Coronal and sagittal MIPS were obtained from the axial data set and were submitted for review. All measurements were obt ained according to NASCET criteria. A dose lowering technique was utilized adhering to the principles of ALARA. COMPARISON: Chest radiograph 03/06/2021, PET CT 07/05/2019, CTA chest 02/06/2012 FINDINGS: CTA: The heart is mildly enlarged. Trace pericardial effusion. Extensive coronary artery calcifications. Moderate atherosclerotic plaque the thoracic aorta. No thoracic aortic aneurysm or dissection. Patency of the imaged great vessels. There are linear nonocclusive segmental and subsegmental emboli within the right lower lobe and lingula (. No central pulmonary emboli. No right heart strain. CT CHEST: Unremarkable thyroid. 12 mm AP window lymph node appears similar to the 2019 comparison. No pneumothorax or pleural effusion. Emphysema. Multilobar peripheral predominant groundglass opacities are noted bilaterally. Respiratory motion artifact limits evaluation of the lung parenchyma. 4 mm fissural nodule of the right lung base on image 108 is unchanged from comparison and likely b enign. Mild tracheobronchial secretions. Decreased transverse versus dimension of the trachea suggestive of a saber-sheath morphology. No pneumoperitoneum. Tiny hiatal hernia. Hepatic steatosis. No acute fracture. No suspicious bone lesions. IMPRESSION: 1. Partially occlusive segmental and subsegmental pulmonary emboli of the right lower lobe and lingula. 2. Bilateral subpleural predominant groundglass opacities compatible with viral pneumonia. 3. Emphysema with mild tracheobronchial secretions. 4. Hepatic steatosis. ACT 112: Negative or not required by law. The above report was generated using voice recognition software. It may contain grammatical, syntax or spelling errors. Electronically signed by: Josh Ray M.D. 03/07/2021 12:24 PM Chest X-Ray 03/11/21 09:09 XR chest 1V portable CLINICAL HISTORY: COVID-19 pneumonia, interval change COMPARISON STUDY: Chest radiograph March 06, 2021. Chest CT March 07, 2021. FINDINGS: Lung volumes are normal. There is no pneumothorax or pleural effusion. Underlying emphysema is better depicted on chest CT. Moderate bilateral airspace opacities have slightly progressed since prior chest CT. IMPRESSION: Slight progression of bilateral airspace opacities consistent with viral pneumonia. ACT 112: Negative or not required by law. Electronically signed by: Bret Ruiz M.D. 03/11/2021 10:40 AM Venous Doppler Study 03/12/21 08:00 BILATERAL LOWER EXTREMITY VENOUS DOPPLER HISTORY: Acute pain and swelling of the lower legs PEs; eval either leg for DVT COMPARISON STUDY: None. FINDINGS: There is normal compressibility, flow, and augmentation within the bilateral lower extremity deep venous systems. IMPRESSION: No DVT within the right or left lower extremity. ACT 112: Negative or not required by law. Electronically signed by: Josh Ray M.D. 03/12/2021 6:29 AM Hospital Course (1) Acute respiratory failure with hypoxia: 2nd to COVID-19 pneumonia along with PEs. With treatment of both issues his daytime O2 was weaned off during the hospitalization. On day of discharge his 2-step ambulatory O2 test demonstrated the need for 3 liters of NC O2 with ambulation. (2) Pneumonia due to COVID-19 virus: Received a full 10-day course of dexamethasone during his visit. Pneumonia was complicated by discovery of PEs on CTA chest; he fortunately did not have CHF or bacterial superinfection. Dopplers of legs negative for DVT. PEs treated with xarelto. By discharge NC O2 was weaned off at rest; however 2-step showed need for ambulatory O2 3 liters with activity. (3) Pulmonary emboli: continue Xarelto 15mg BID x 21 days, then 20mg daily thereafter. would plan for 6 months of Rx at minimum. dopplers of legs negative for DVT. risk factors - COVID, prostate ca, etc. (4) Spring catheter in place: For urinary retention 2nd to prostate CA Continue Flomax Routine catheter exchange due in late February 2021 JOE with probable prostatitis (5) Catheter-associated urinary tract infection: completed amoxicillin course for enterococcal UTI (urine cx from 02/21/21) JOE with findings to suggest prostatitis thus a longer amoxicillin course was advised (amox 500mg TID x 14 days) (6) Prostate cancer: dx early 2020 follows with [facility] urology - will need f/u with them post-d/c for management and spring, prostatitis, etc (7) CAD (coronary artery disease): no ischemic symptoms during the visit continue home medications including ASA, Atorvastatin, Metoprolol (8) Anxiety: cont ativan prn (9) Constipation: cont bowel regimen for maintenance (10) GERD (gastroesophageal reflux disease): PPI (11) DVT prophylaxis: xarelto - full anticoagulation prescribed at discharge due to PEs see above Total Time Total Time Spent Total Time Spent (In Minutes): 45 Total Time Includes: Examination of the Patient, Discharge Planning and Medication Reconciliation Discharge Plan Discharge Items Patient Disposition: Home - Self-Care Reason For Visit: COVID-19 Pneumonia Discharge Diagnosis: 1. COVID-19 Pneumonia - improving 2. UTI with probable prostatitis (prostate infection) 3. pulmonary emboli (blood clots in the lungs) - due to #1 4. mildly elevated liver function tests - due to COVID-19 5. chronic spring catheter 6. prostate cancer Activity: As commented below Activity Comment: gradually increase your activities over the next 1-2 weeks (as tolerated) Non-emergency contact: Primary Care Provider, County Director Welfare and Urologist Call non-emergency contact if: you have any medication questions, your symptoms worsen and you have a fever Follow-up/Referrals: [facility] Pulmonology [Provider Group] - 05/09/21 1:00 pm (Dr Moyer) [facility] Urology [Provider Group] - 03/27/21 1:00 pm (See Dr. Valentin SUMNER, Dorene Cochran, within 2 weeks for spring catheter management & prostatitis.) Jerry Christina MD [Primary Care Provider] - 03/19/21 11:00 am (see Dr Christina within 1 week) Diet: Heart Healthy Addtl Attending Provider Instructions: Mr Harris, You were treated for the problems listed above in "discharge diagnoses." Your COVID-19 pneumonia was treated with a 10-day course of intravenous steroids. You received oxygen and other supportive care. You were very diligent about proning ("tummy time") and doing your breathing exercises. Over the course of your long stay you made nice improvement in all of your lung symptoms. At time of discharge you no longer need to use oxygen while sitting in a chair or lounging on a couch. However, with sleep and with ambulation/activity/leaving your home - please use oxygen 3 liters via the nasal cannula. It is likely that you are no longer contagious to others as you are 14+ days out from the start of your illness and you have improved nicely. You do not need to isolate within your home upon discharge. With that said it is a good idea to take it easy for the first 1-2 weeks following your stay as you will be tired and still recovering. Any time you leave your home please wear a mask at all times. Your stay was complicated by urinary tract infection/prostatitis along with discovery of blood clots in your lungs (pulmonary emboli). COVID "thickens" the blood increasing the chances of getting blood clots. We will treat your blood clots with Xarelto blood thinner. You will be on the Xarelto for at least 6 months. Recommendations - 1. for UTI/prostatitis - take 2 more weeks of amoxicillin 500mg three times a day; start TONIGHT. 2. take probiotics daily for prevention of diarrhea from the antibiotics. 3. for your pulmonary emboli -- * take XARELTO 15mg twice a day for 17 more days; first DOSE TONIGHT with food * after 17 days you will DECREASE the dose to 20mg once daily * you will then take the 20mg dose daily for about 5-6 months * I have sent the 15mg tablets to [facility] for you; the 20mg dose prescription is computer printed; do not fill until the 15mg tablet bottle is complete * see information below regarding blood clots & blood thinners 4. continue your usual spring care and have it exchanged at the end of FEBRUARY as scheduled. 5. continue to prone (tummy time) as much as possible in the next week. 6. continue your incentive spirometry and flutter valve for another 1-2 weeks. 7. owyn-mft-bzrtttq mucinex up to 1200mg twice a day is ok for cough/congestion. 8. for constipation - [id number]-[id number]-nbmbttz miralax +/- senakot works well. 9. for bladder/penile pain may take pyridium (phenazopyridine) 100mg up to 3 times daily as needed * this will cause your urine to be orange colored and your tears orange; this is a normal side effect 10. your liver tests are mildly elevated because of COVID. This typically resolves within a couple of weeks. Please hold your atorvastatin, avoid tylenol, and avoid alcohol until they have normalized. Have Dr Christina repeat your liver tests when he sees you. 11. in about 3 months please strongly consider the COVID vaccine to protect yourself against future infection. Follow-up - see separate section Return to [facility] if - * you develop new onset fevers over 100.5 degrees * you have worsening shortness of breath or chest pains * you have severe diarrhea * you have to turn up the oxygen amount on your oxygen tanks to get relief of chest symptoms * you have significant bleeding from the urine, GI tract, etc in the setting of taking your blood thinner * any other concerns It was my pleasure caring for you and please continue to feel better! -Dr Lundy Addtl Radio Machinist Provider Instructions: Medication Instructions: Your pulmonary emboli (blood clots in the lungs) are typically treated with an anticoagulant. Anticoagulants will thin your blood to help prevent new clots. Your blood thinner is XARELTO. * You should take her medication exactly as directed. * Never skip a dose. * Never take a double dose. If you miss a dose, take it as soon as you remember. Call your Primary Care doctor if you experience any of the following: * Swelling or Pain in your leg * Sudden, continuous pain deep in a muscle * Pain that worsens when you are active or when you stand still for a long time * Chest Pain * Sudden Shortness of Breath * Rapid or pounding heart beat * Fainting * Dizziness * Cough with blood or bloody sputum * Sweating more than normal * Bruises * Heavy or uncontrolled bleeding * Blood in your urine, stool or vomit * Black or tarry stools * Heavy nose bleeding Caring for Your Self at Home: * Avoid sitting, standing or lying down for long periods without moving your legs and feet * When traveling by car, stop to get out and move around at least once every 3 hours * On long airplane, train or bus rides, get up and move around when possible * If you can't get up, wiggle your toes and tighten your calves to keep your blood moving * Instead of a traditional razor please use an electric shaver - this is safer to use on your face when you take blood thinners Pending Studies at Discharge: No Stand-Alone Forms: My [facility] [employer], Smoking Cessation Medications and DC Order Prescriptions: New amoxicillin 500 mg Capsule 500 mg PO TID 14 Days Qty: 42 RF: 0 Saccharomyces boulardii [Florastor] 250 mg Capsule 250 mg PO DAILY 14 Days Qty: 14 RF: 0 phenazopyridine [Pyridium] 100 mg Tablet 100 mg PO TID PRN (Reason: urinary/bladder pain ) Qty: 20 RF: 0 Xarelto 15 mg tablet 15 mg PO BID 17 Days Qty: 34 RF: 0 Xarelto 20 mg tablet 20 mg PO DAILY Qty: 30 RF: 5 (DME) Oxygen Home Liters Per Minute See Rx Instructions .ROUTE .MEDSUPPLY Qty: 1 RF: 0 Continued tamsulosin 0.4 mg capsule 0.4 mg PO BID Qty: 60 RF: 5 tramadol 50 mg tablet 50 mg PO Q8H PRN (Reason: dysuria) Qty: 60 RF: 1 zinc 50 mg tablet 50 mg PO QAM RF: 0 hydrocodone-acetaminophen 10-325 mg tablet 1 tab PO Q6H PRN (Reason: pain) Qty: 30 RF: 0 oxybutynin chloride 5 mg tablet 5 mg PO TID PRN (Reason: bladder spasms) Qty: 90 RF: 0 nystatin 100,000 unit/mL suspension 5 ml PO QID 10 Days Qty: 200 RF: 2 aspirin [Aspir-81] 81 mg Tablet,Delayed Release (Dr/Ec) 81 mg PO QAM RF: 0 lorazepam 0.5 mg tablet 0.5 mg PO TID PRN (Reason: Anxiety) RF: 0 baclofen 10 mg tablet 10 mg PO TID PRN (Reason: Pain) RF: 0 Discontinued prednisone 5 mg tablet 5 mg PO DAILY RF: 0 ampicillin 500 mg capsule 500 mg PO QID 10 Days Qty: 40 RF: 0 atorvastatin 80 mg tablet 80 mg PO HS RF: 0 Discharge Orders: Discharge Order (Routine); Ordered 03/13/21 Ordered By: Raul Alaniz/Other Patient Handouts: 2019-nCoV, COVID-19 Prevention, COVID-19 Home Care, Proning COVID-19, ED Prostatitis, How COVID-19 Spreads Admission Data Admit Date/Time: 03/03/21 06:03 Attending Provider: Raul Lundy Admit Provider: Meggan Pinon Primary Care Provider: Jerry Christina Other Providers: Meggan Pinon Other Interventions: Discharge Summary Assessment (RN) Last Done: 03/13/21 16:43 Coding Level of Care Code D/C Day Management >30 mins Diagnoses Acute respiratory failure with hypoxia J96.01 Pneumonia due to COVID-19 virus U07.1; J12.82 Pulmonary emboli I26.[address] Z97.8 Catheter-associated urinary tract infection T83.511A; N39.0 Prostate cancer C61 CAD (coronary artery disease) I25.10 Associated angina: without angina Coronary Disease-Associated Artery/Lesion type: [place] artery [place] vs. transplanted heart: [place] heart Anxiety F41.9 Constipation K59.00 GERD (gastroesophageal reflux disease) K21.9 DVT prophylaxis Z29.9
[2021-03-13 16:43] VITALS: BP 104/64; PULSE 112
--- NOTE | 2021-03-21 09:32 | Coding Query ---
PRESENT ON ADMISSION QUERY To promote full compliance with coding requirements relating to pateint care, physician participation is requested in all cases of law enforcement officer uncertainty. Please assist us with the question(s) below: Please place an X within the parenthesis (x). The following diagnosis(es) listed in this patient's medical record require physician assistance to determine if they were present on admission (POA) or not. Please advise for each diagnosis whether it was present on admission, not present on admission, or if it was clinically undetermined. 1. Pulmonary Embolism ( ) Present On Admission (x ) Not Present On Admission ( ) Clinically Undetermined 2. Catheter-associated UTI ( x) Present On Admission ( ) Not Present On Admission ( ) Clinically Undetermined Thank you Mark Alicea *Definition of the present on admission (POA)-Present on admission is defined as present at the time the order for inpatient admission occurs. Conditions that develop during an outpatient encounter prior to a written order for inpatient admission (including emergency department, observation, or outpatient surgery) are considered present on admission. NITA
== END 2021-03-13 18:03 | disposition home or self-care (01) | DRG 177 ==
LOC: ED 04:00 → SUATTDRO 06:03 → 2S 06:03 → 2E 18:30 → 3E 03-11 12:41
DX: Z79.899 Other long term (current) drug therapy; T83.511A Infection and inflammatory reaction due to indwelling urethral catheter, initial encounter; K21.9 Gastro-esophageal reflux disease without esophagitis; N39.0 Urinary tract infection, site not specified; J12.82 Pneumonia due to coronavirus disease 2019; Z87.891 Personal history of nicotine dependence; Z91.09 Other allergy status, other than to drugs and biological substances; F41.0 Panic disorder [episodic paroxysmal anxiety]; N41.9 Inflammatory disease of prostate, unspecified; Z85.46 Personal history of malignant neoplasm of prostate; R33.9 Retention of urine, unspecified; K59.00 Constipation, unspecified; I26.93 Single subsegmental thrombotic pulmonary embolism without acute cor pulmonale; Z79.82 Long term (current) use of aspirin; N40.0 Benign prostatic hyperplasia without lower urinary tract symptoms; I25.10 Atherosclerotic heart disease of native coronary artery without angina pectoris; Z95.5 Presence of coronary angioplasty implant and graft; J96.01 Acute respiratory failure with hypoxia; I25.2 Old myocardial infarction; U07.1 COVID-19

== ENCOUNTER 2022-01-10 20:42 | Observation (INO) ==
--- NOTE | 2022-01-10 21:28 | Emergency Department Note ---
Impression & Plan Syncope, History of coronary artery stent placement, Acute dehydration ED Provider Note NAME: ELVIS SAM JR AGE: 66 SEX: M : 1955 ARRIVES VIA: Walk-In INFORMANT: Patient, ED PROVIDER(S): Jose Chaidez MD Chief Complaint: Syncope HPI: Patient presents due to concern for syncope which occurred just prior to arrival. The patient states that he was in bed with a dinner tray when he started to get very lightheaded and dizzy and subsequently woke up several minutes later knowing that he had passed out. The patient denies any bowel or bladder incontinence. The patient denies any chest pain or shortness of breath. Patient denies any nausea vomiting or diarrhea. Patient denies any tongue biting. No known seizure history. Patient denies any vomiting or diarrhea or infectious symptoms. Patient states that he has had issues with this in the past secondary to anxiety/panic attacks as well as due to Flomax. Patient does have a prior history of CAD but has not followed with cardiology in some time. He does follow with Dr. Jose Roblse who is soon to be retiring and does need to reestablish with a new PCP. Patient denies any current emotional distress anxiety coughing sneezing or other cause of his syncope. The patient states that when he awoke though he noted that his heart rate was in the 40s. ROS: See HPI for pertinent positives and negatives. A total of 10 systems were reviewed and otherwise negative. Past medical history: See below Surgical history: See below Social history: See below Physical Exam: GENERAL: NAD, wearing glasses, non-toxic. EYE EXAM: Normal conjunctiva. PERRL, no anisocoria and EOM's grossly intact w/o pain. NECK: Supple, no nuchal rigidity, no adenopathy, non-tender. No signs of meningismus. LUNGS: Clear to auscultation. Normal chest wall mechanics. HEART: NSR, no MRG. ABDOMEN: Abdomen soft, non-tender, normo-active bowel sounds, no masses, no rebound or guarding. BACK: No CVA TTP. SKIN: No rashes and no bruising. UPPER EXTREMITIES: Upper extremities are grossly normal. LOWER EXTREMITIES: Grossly normal, no edema. NEURO EXAM: A&O x3, cranial nerves II-XII grossly intact, normal speech, moves all 4 extremities on command w/o issue. Differential diagnoses: Vasovagal event, dehydration, infection, hypoglycemia, electrolyte abnormalities, cardiac sources, intracerebral event, pulmonary embolism, seizure, toxicologic, neurologic, as well as other pathologies. Course: Patient was seen and evaluated the bedside. Full history physical exam was performed. EKG interpreted by me Normal sinus rhythm, rate of 77, normal intervals, normal axis, no ST elevations. Imaging Studies: See Below Cardiac monitoring: An order was placed for continuous cardiac monitoring. The monitor shows a rate of 72 with sinus rhythm. MDM: Patient was seen due to concern for syncope. Blood work is obtained the patient was ordered IV fluids. Very mild hypercalcemia at 10.2. Troponin is nondetectable. Patient's EKG with no obvious ischemia. Given the patient's history of CAD and stating that he was bradycardic with work-up do believe the patient would benefit from monitoring. I did speak with the on-call hospitalist Dr. Iraheta patient was admitted to the medicine service. 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 History of appendectomy History of cardiac cath 2012 History of colonoscopy History of cystoscopy with stone basketing History of radical neck dissection for SCC History of tonsillectomy Hx of heart artery stent x2 (2011) Hx of inguinal hernia repair Left Family History Father Heart disease Mother FH: kidney cancer Other No family history of adverse response to anesthesia Social History Smoking Status: Former smoker Tobacco Type: Cigarettes Age Started Using Tobacco: 17; Age Quit Using Tobacco: 55; packs per day: 1; Years Smoked: 38; Second Hand Exposure: Yes; Hx Alcohol Use: No Hx Substance Use: No Preferred Language: Maori Communication Ability: Effective Visual Impairment: No Limitations Hearing Ability: Normal Jv Baseball Coach Required: No Beliefs That Will Affect Care: None marital status: Current Living Situation: Family Current Living Situation Comment: youngest daughter, her and two teenagers live with him current occupational status: employed How many Children do You have: 2 Feels Safe at Home: Yes Childhood Exposure to Second-Hand Smoke: Yes Diet Comment: sweat glands destroyed with RT, must drink water constantly and moisturize caffeine: Yes (tea 3 cups per day) during the past year weight has: remained stable Dental Care, Regularly: Yes Physical Activity Frequency: 3-4 Times per Week Physical Activity Frequency Comment: climbs stairs 300/day Seatbelt Use: always Sunscreen Use: Yes (irregularly, but stays out of the sun for the most part) Assistive Devices: Glasses Allergies Allergies Allergy/AdvReac Type Severity Reaction Status Date / Time pollen extracts Allergy Intermediate Watery Verified 01/10/22 21:40 eyes, burning sinsus, CONGESTION Home Meds Home Medications Medication Instructions Recorded Confirmed baclofen 10 mg tablet 10 mg PO TID PRN 10/30/18 01/10/22 lorazepam 0.5 mg tablet 0.5 mg PO TID PRN 10/30/18 01/10/22 zinc 50 mg tablet 50 mg PO QAM 09/13/20 01/10/22 Oxygen Home ea 06/06/21 08/09/21 aspirin 81 mg tablet,delayed 81 mg PO DAILY 01/10/22 01/10/22 release metoprolol tartrate 25 mg tablet 12.5 mg PO BID 01/10/22 01/10/22 tamsulosin 0.4 mg capsule 0.4 mg PO DAILY 01/10/22 01/10/22 Previous Rx's Medication Instructions Recorded tramadol 50 mg tablet 50 mg PO Q8H PRN #60 tab 02/28/21 Results & Data (ED) Vital Signs Vital Signs - 24 hr 01/10/22 21:00 01/10/22 21:40 01/10/22 23:30 Temperature 36.6 C Temperature Source Temporal Artery Scan Pulse Rate 86 77 Pulse Rate [Finger] 77 74 Pulse Rhythm Regular Pulse Strength Normal Respiratory Rate 86 H 18 16 Respiratory Effort / Characteristics Non-Labored Non-Labored Respiratory Depth Normal Normal Respiratory Pattern Regular Blood Pressure 169/101 H Blood Pressure [Left Arm] 157/94 H 145/88 H Blood Pressure Mean 123 Blood Pressure Mean [Left Arm] 115 107 Blood Pressure Position Sitting Blood Pressure Position [Left Arm] Sitting Pulse Oximetry 98 96 100 Oxygen Delivery Method Room Air Room Air Room Air Oxygen Flow Rate 0 Sepsis Recent Fever Within 48 Hours No Sepsis New/Unexplained Change in Mental Status N/A Sepsis Action Taken by Nursing No Action Required Home Medications Current Medication List: was personally reviewed by me Laboratory Data Attestation: I reviewed the patient's lab results. Result diagrams: 01/10/22 21:47 01/10/22 21:47 Lab Results 01/10/22 01/10/22 01/10/22 Range/Units 21:47 21:47 21:47 WBC 6.15 (4.8-10.8) K/uL RBC 4.73 (4.7-6.1) M/uL Hgb 14.0 (14.0-18.0) g/dL Hct 41.0 L (42-52) % MCV 86.7 (80-100) fL MCH 29.6 (25-34) pg MCHC 34.1 (32-36) g/dL RDW Std Deviation 41.5 (36.4-46.3) fL RDW Coeff of Maikel 13.0 (11.5-14.5) % Plt Count 161 (130-400) K/uL MPV 11.0 H (7.4-10.4) fL Immature Gran % (Auto) 0.3 % Neut % (Auto) 75.3 % Lymph % (Auto) 14.3 % Steele % (Auto) 8.3 % Eos % (Auto) 1.6 % Baso % (Auto) 0.2 % Neut # (Auto) 4.63 (1.4-6.5) K/uL Lymph # (Auto) 0.88 L (1.2-3.4) K/uL Steele # (Auto) 0.51 (0.11-0.59) K/uL Eos # (Auto) 0.10 (0-0.5) K/uL Baso # (Auto) 0.01 (0-0.2) K/uL Immature Gran # (Auto) 0.02 (0.00-0.02) K/uL Sodium 140 (136-145) mmol/L Potassium 3.7 (3.5-5.1) mmol/L Chloride 107 (98-107) mmol/L Carbon Dioxide 26 (21-32) mmol/L Anion Gap 7 (3-11) BUN 14 (6-23) mg/dl Creatinine 0.99 (0.6-1.4) mg/dl Est Cr Clr Drug Dosing 67.1 ml/min Est GFR ( Amer) 92.2 ml/min Est GFR (Non-Af Amer) 79.6 ml/min BUN/Creatinine Ratio 14.1 (10-20) Glucose 107 H (70-99(Fasting)) mg/dl Calcium 10.2 H (8.5-10.1) mg/dl Magnesium 2.0 (1.7-2.4) mg/dl Total Bilirubin 0.7 (0.2-1.0) mg/dl AST 21 (13-39) U/L ALT 23 (7-52) U/L Alkaline Phosphatase 91 (34-104) U/L Troponin I < 0.03 (0-0.04) ng/ml Total Protein 6.5 (6.0-8.3) gm/dl Albumin 4.3 (3.4-5.0) gm/dl Globulin 2.2 L (2.5-4.0) gm/dl Albumin/Globulin Ratio 2.0 (0.9-2) TSH 2.494 (0.300-4.500) uIu/ml SARS-CoV-2, RNA, NAAT (NEGATIVE) 01/10/22 Range/Units 23:35 WBC (4.8-10.8) K/uL RBC (4.7-6.1) M/uL Hgb (14.0-18.0) g/dL Hct (42-52) % MCV (80-100) fL MCH (25-34) pg MCHC (32-36) g/dL RDW Std Deviation (36.4-46.3) fL RDW Coeff of Maikel (11.5-14.5) % Plt Count (130-400) K/uL MPV (7.4-10.4) fL Immature Gran % (Auto) % Neut % (Auto) % Lymph % (Auto) % Steele % (Auto) % Eos % (Auto) % Baso % (Auto) % Neut # (Auto) (1.4-6.5) K/uL Lymph # (Auto) (1.2-3.4) K/uL Steele # (Auto) (0.11-0.59) K/uL Eos # (Auto) (0-0.5) K/uL Baso # (Auto) (0-0.2) K/uL Immature Gran # (Auto) (0.00-0.02) K/uL Sodium (136-145) mmol/L Potassium (3.5-5.1) mmol/L Chloride (98-107) mmol/L Carbon Dioxide (21-32) mmol/L Anion Gap (3-11) BUN (6-23) mg/dl Creatinine (0.6-1.4) mg/dl Est Cr Clr Drug Dosing ml/min Est GFR ( Amer) ml/min Est GFR (Non-Af Amer) ml/min BUN/Creatinine Ratio (10-20) Glucose (70-99(Fasting)) mg/dl Calcium (8.5-10.1) mg/dl Magnesium (1.7-2.4) mg/dl Total Bilirubin (0.2-1.0) mg/dl AST (13-39) U/L ALT (7-52) U/L Alkaline Phosphatase (34-104) U/L Troponin I (0-0.04) ng/ml Total Protein (6.0-8.3) gm/dl Albumin (3.4-5.0) gm/dl Globulin (2.5-4.0) gm/dl Albumin/Globulin Ratio (0.9-2) TSH (0.300-4.500) uIu/ml SARS-CoV-2, RNA, NAAT NEGATIVE (NEGATIVE) Administered Medications Discontinued Medications Sodium Chloride (Nss 1000ml) 1,000 mls @ 999 mls/hr IV .Q1H1M DONAL Stop: 01/10/22 22:30 Last Infusion: 01/10/22 23:16 Dose: 0 mls/hr Documented by: [id number] Admin: 01/10/22 21:53 Dose: 999 mls/hr Documented by: [id number] Promethazine HCl (Phenergan) 12.5 mg in 50.5 mls @ 202 mls/hr IV NOW STA Stop: 01/10/22 23:37 Last Infusion: 01/10/22 23:52 Dose: 0 mls/hr Documented by: [id number] Admin: 01/10/22 23:32 Dose: 202 mls/hr Documented by: [id number] Discharge Plan Visit Data Chief Complaint: Syncope Stated Complaint: PASSED OUT A COUPLE TIMES, HEART RATE UP ED Provider: Jose Chaidez Discharge Problem: Syncope, History of coronary artery stent placement, Acute dehydration Patient Disposition: Admitted As Inpatient Forms Stand Alone Forms: [facility] Prescriptions Prescriptions: No Action tramadol 50 mg tablet 50 mg PO Q8H PRN (Reason: dysuria) Qty: 60 RF: 1 zinc 50 mg tablet 50 mg PO QAM RF: 0 (DME) Oxygen Home Liters Per Minute See Rx Instructions .ROUTE .MEDSUPPLY RF: 0 lorazepam 0.5 mg tablet 0.5 mg PO TID PRN (Reason: Anxiety) RF: 0 baclofen 10 mg tablet 10 mg PO TID PRN (Reason: Pain) RF: 0 aspirin 81 mg Tablet,Delayed Release (Dr/Ec) 81 mg PO DAILY RF: 0 metoprolol tartrate 25 mg tablet 12.5 mg PO BID RF: 0 tamsulosin 0.4 mg capsule 0.4 mg PO DAILY RF: 0 Referrals Referrals: Jerry Christina MD [Primary Care Provider] -
[2022-01-10] MEDS ORDERED: SODIUM CHLORIDE 0.9% 1000ML 1,000 ML IV SCH (21:30)
[2022-01-10 21:57] LABS: Basophils # (auto) 0.01 K/uL (0-0.2); Basophils % (auto) 0.2 %; Eosinophils % (auto) 1.6 %; Immature Granulocytes # (auto) 0.02 K/uL (0.00-0.02); Immature Granulocytes % (auto) 0.3 %; Lymphocytes # (auto) 0.88 K/uL (1.2-3.4); Lymphocytes % (auto) 14.3 %; Mean Corpuscular Hemoglobin 29.6 pg (25-34); Mean Corpuscular Hgb Conc 34.1 g/dL (32-36); Mean Corpuscular Volume 86.7 fL (80-100); Monocytes # (auto) 0.51 K/uL (0.11-0.59); Monocytes % (auto) 8.3 %; Neutrophils # (auto) 4.63 K/uL (1.4-6.5); Neutrophils % (auto) 75.3 %; Platelet Count 161 K/uL (130-400); RDW Standard Deviation 41.5 fL (36.4-46.3); Red Blood Count 4.73 M/uL (4.7-6.1); White Blood Count 6.15 K/uL (4.8-10.8)
[2022-01-10 22:40] LABS: Troponin I < 0.03 ng/ml (0-0.04)
[2022-01-10 22:41] LABS: Alanine Aminotransferase 23 U/L (7-52); Albumin Level 4.3 gm/dl (3.4-5.0); Alkaline Phosphatase 91 U/L (34-104); Anion Gap 7 (3-11); Aspartate Aminotransferase 21 U/L (13-39); BUN Creatinine Ratio 14.1 (10-20); Bilirubin,Total 0.7 mg/dl (0.2-1.0); Blood Urea Nitrogen 14 mg/dl (6-23); Calcium 10.2 mg/dl (8.5-10.1); Carbon Dioxide 26 mmol/L (21-32); Chloride 107 mmol/L (98-107); Creatinine Clr Calc Pharmacy 67.1 ml/min; Est GFR (African American) 92.2 ml/min; Est GFR (Non-African American) 79.6 ml/min; Globulin 2.2 gm/dl (2.5-4.0); Glucose 107 mg/dl (70-99(Fasting)); Potassium 3.7 mmol/L (3.5-5.1); Sodium 140 mmol/L (136-145); Total Protein 6.5 gm/dl (6.0-8.3)
[2022-01-10] MEDS ORDERED: PROMETHAZINE 12.5 MG/50.5 ML BAG IV STA (23:23)
--- NOTE | 2022-01-11 00:19 | History & Physical Report ---
Date of Service January 11, 2022 Assessment & Plan (1) Syncope: Plan: Syncope- The patient will be admitted to telemetry for serial cardiac enzymes, serial EKG's, cardiac rhythm monitoring and a 2-D echocardiogram with Dopplers. Would be concerned in particular regarding an arrhythmia due to no warning symptoms associated The patient does appear to have significant dry mouth and dehydration The patient has a difficult balance between having appropriate oral intake due to side effects of severe xerostomia from radiation associated with right-sided head and neck cancer, and dealing with urinary frequency and urgency associated with prostate cancer and radiation seed implants (2) Acute dehydration: Plan: Acute on chronic dehydration- We will gently rehydrate with 1 L of IV fluids at 60 mils per hour, and try not to precipitate urinary retention and urinary frequency issues (3) Head and neck cancer: Plan: As noted above, patient has undergone right-sided radical neck dissection for squamous cell carcinoma, and then followed by radiation therapy Patient continues to have severely dry mouth, and uses an [id number] mouth spray and keeps a water bottle with him all the time. (4) Prostate cancer: Plan: Prostate cancer status post radiation seed implant Patient continues have urinary frequency and urgency. He has has had an indwelling Davis catheter for up to 3 months in the past. He was on Flomax twice daily, but this was reduced to daily due to concerns regarding possible contributing to previous syncopal episode. (5) Urinary retention: Plan: Patient reports that he has significant urinary retention if he misses even 1 dose of his Flomax We will consult urology to try to help patient with his significant urinary retention and urinary frequency and urgency. There needs to be a balance found between his difficulty with keeping up with oral intake of fluids that he needs related to xerostomia associated with his head neck radiation treatments, and issues with his prostate cancer and radiation seed implants (6) Myocardial infarct: Plan: History of myocardial infarction/hypertension/stented coronary artery Continue metoprolol tartrate 12.5 mg p.o. twice daily and aspirin 81 mg daily Order serial troponins (7) History of coronary artery stent placement: Plan: See above (8) History of radical neck dissection: Plan: See above (9) COVID-19: Plan: Patient was admitted and treated for COVID-19 pneumonia from 03/03-03/13/2021, that he reports he recuperated completely from He has followed with pulmonology in the interim (10) Pulmonary embolism: Plan: Noted on CT of 03/07/2021 Patient has no tachypnea, tachycardia, hypoxia or other symptoms suggestive of a new PE History of Present Illness Chief Complaint: The patient presents to the emergency department with complaint of a syncopal episode that occurred while he was eating supper this evening Primary Care Provider: Jerry Christina MD The patient is a 66-year-old male with a past medical history including pulmonary embolism, COVID-19 infection, urinary retention, head and neck cancer status post radiation therapy, prostate cancer status post radiation seed implant, myocardial infarction, and stented coronary artery. He reports that he had taken a couple bites of food from a tray that was on his lap, and then the next thing he remembers he was waking up. He had no warning symptoms such as palpitations, lightheadedness or dizziness. He did not have any loss of bowel or bladder function. He does feel a little bit woozy in his head at this time. He reports having had a syncopal episode in the past, that was thought associated to anxiety and panic attacks, and at that time was taking Flomax twice daily. He continues to take Flomax once daily due to significant issues with urinary retention. He has significant issues with dry mouth secondary to radiation associated with right-sided head and neck cancer with history of surgery. Allergies Allergy/AdvReac Type Severity Reaction Status Date / Time pollen extracts Allergy Intermediate Watery Verified 01/10/22 21:40 eyes, burning sinsus, CONGESTION Home Medications Medication Instructions Recorded Confirmed Type baclofen 10 mg tablet 10 mg PO TID PRN 10/30/18 01/10/22 History lorazepam 0.5 mg tablet 0.5 mg PO TID PRN 10/30/18 01/10/22 History zinc 50 mg tablet 50 mg PO QAM 09/13/20 01/10/22 History tramadol 50 mg tablet 50 mg PO Q8H PRN #60 tab 02/28/21 01/10/22 Rx Oxygen Home ea 06/06/21 08/09/21 History aspirin 81 mg tablet,delayed 81 mg PO DAILY 01/10/22 01/10/22 History release metoprolol tartrate 25 mg tablet 12.5 mg PO BID 01/10/22 01/10/22 History tamsulosin 0.4 mg capsule 0.4 mg PO DAILY 01/10/22 01/10/22 History Past Med/Surg History Medical History (Updated 01/11/22 @ 00:56 by Jose Chaidez MD) Anxiety Kidney stone hx Lymphadenopathy, cervical (02/20/11) s/p radical neck dissection for SCC Myocardial infarct 2011 Pneumonia due to COVID-19 virus Prostate cancer Prostate cancer 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 Urinary retention Urinary symptom or sign Surgical History (Updated 01/11/22 @ 01:40 by Jarad Sanford MD) H/O removal of neck cyst 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 History of appendectomy History of cardiac cath 2011 History of colonoscopy History of cystoscopy with stone basketing History of radical neck dissection for SCC History of tonsillectomy Hx of heart artery stent x2 (2011) Hx of inguinal hernia repair Left Family History Father Heart disease Mother FH: kidney cancer Other No family history of adverse response to anesthesia Social History Smoking Status: Former smoker Tobacco Type: Cigarettes Age Started Using Tobacco: 17; Age Quit Using Tobacco: 55; packs per day: 1; Years Smoked: 38; Second Hand Exposure: Yes; Hx Alcohol Use: No Hx Substance Use: No Preferred Language: Turkish Communication Ability: Effective Visual Impairment: No Limitations Hearing Ability: Normal Panama Hat Blocker Required: No Beliefs That Will Affect Care: None marital status: Current Living Situation: Family Current Living Situation Comment: youngest daughter, her and two teenagers live with him current occupational status: employed How many Children do You have: 2 Feels Safe at Home: Yes Childhood Exposure to Second-Hand Smoke: Yes Diet Comment: sweat glands destroyed with RT, must drink water constantly and moisturize caffeine: Yes (tea 3 cups per day) during the past year weight has: remained stable Dental Care, Regularly: Yes Physical Activity Frequency: 3-4 Times per Week Physical Activity Frequency Comment: climbs stairs 300/day Seatbelt Use: always Sunscreen Use: Yes (irregularly, but stays out of the sun for the most part) Assistive Devices: Glasses Review of Systems Review of Systems: The patient denies chest pain, palpitations, shortness of breath, dyspnea on exertion, cough, lower extremity swelling, sore throat, fevers, chills, sweats, weight change, nausea, vomiting, diarrhea , constipation, abdominal pain, pelvic pain, blood in urine or stool, lightheadedness, headache, abnormal bruising or bleeding, imbalance, focal weakness, numbness or tingling in arms or legs, generalized arthralgias or myalgias, back or neck pain, or night sweats. The review of systems is otherwise negative other than for that already noted above, and at least 10 systems have been reviewed. Physical Exam Physical Exam: The patient is awake, alert and oriented 3, well developed and well nourished, normocephalic and atraumatic, lying in bed and in no acute distress. HEENT--PERRL, EOMI, mucous membranes and oropharynx very dry. Neck--supple. No JVD. No bruits. Thyroid normal, trachea midline, no adenopathy. Heart--normal S1 and S2. No murmurs, rubs or gallops. Lungs--clear bilaterally, no respiratory distress, no accessory muscle use. Abdomen--normal bowel sounds and soft. Nontender. Nondistended, no hernias or masses, no organomegaly. Extremities--no cyanosis or clubbing. No edema. Dermatologic--normal skin turgor, normal color, no abnormal lymph nodes, no rash. Neurologic--cranial nerves II through XII grossly intact. Rheumatologic--normal range of motion. Psychiatric--normal affect. Very Results & Data Results & Data ([facility]) Vital Signs (Past 12 Hours) Vital Signs Temp Pulse Pulse Resp BP BP Pulse Ox 01/10/22 23:30 74 16 145/88 H 100 01/10/22 21:40 77 77 18 157/94 H 96 01/10/22 21:00 36.6 C 86 86 H 169/101 H 98 Laboratory Results Laboratory Results WBC 6.15 K/uL (4.8-10.8) 01/10/22 21:47 RBC 4.73 M/uL (4.7-6.1) 01/10/22 21:47 Hgb 14.0 g/dL (14.0-18.0) 01/10/22 21:47 Hct 41.0 % (42-52) L 01/10/22 21:47 MCV 86.7 fL (80-100) 01/10/22 21:47 MCH 29.6 pg (25-34) 01/10/22 21:47 MCHC 34.1 g/dL (32-36) 01/10/22 21:47 RDW Std Deviation 41.5 fL (36.4-46.3) 01/10/22 21:47 RDW Coeff of Maikel 13.0 % (11.5-14.5) 01/10/22 21:47 Plt Count 161 K/uL (130-400) 01/10/22 21:47 MPV 11.0 fL (7.4-10.4) H 01/10/22 21:47 Immature Gran % (Auto) 0.3 % 01/10/22 21:47 Neut % (Auto) 75.3 % 01/10/22 21:47 Lymph % (Auto) 14.3 % 01/10/22 21:47 Addison % (Auto) 8.3 % 01/10/22 21:47 Eos % (Auto) 1.6 % 01/10/22 21:47 Baso % (Auto) 0.2 % 01/10/22 21:47 Neut # (Auto) 4.63 K/uL (1.4-6.5) 01/10/22 21:47 Lymph # (Auto) 0.88 K/uL (1.2-3.4) L 01/10/22 21:47 Addison # (Auto) 0.51 K/uL (0.11-0.59) 01/10/22 21:47 Eos # (Auto) 0.10 K/uL (0-0.5) 01/10/22 21:47 Baso # (Auto) 0.01 K/uL (0-0.2) 01/10/22 21:47 Immature Gran # (Auto) 0.02 K/uL (0.00-0.02) 01/10/22 21:47 Sodium 140 mmol/L (136-145) 01/10/22 21:47 Potassium 3.7 mmol/L (3.5-5.1) 01/10/22 21:47 Chloride 107 mmol/L (98-107) 01/10/22 21:47 Carbon Dioxide 26 mmol/L (21-32) 01/10/22 21:47 Anion Gap 7 (3-11) 01/10/22 21:47 BUN 14 mg/dl (6-23) 01/10/22 21:47 Creatinine 0.99 mg/dl (0.6-1.4) 01/10/22 21:47 Est Cr Clr Drug Dosing 67.1 ml/min 01/10/22 21:47 Est GFR ( Amer) 92.2 ml/min 01/10/22 21:47 Est GFR (Non-Af Amer) 79.6 ml/min 01/10/22 21:47 BUN/Creatinine Ratio 14.1 (10-20) 01/10/22 21:47 Glucose 107 mg/dl (70-99(Fasting)) H 01/10/22 21:47 Calcium 10.2 mg/dl (8.5-10.1) H 01/10/22 21:47 Magnesium 2.0 mg/dl (1.7-2.4) 01/10/22 21:47 Total Bilirubin 0.7 mg/dl (0.2-1.0) 01/10/22 21:47 AST 21 U/L (13-39) 01/10/22 21:47 ALT 23 U/L (7-52) 01/10/22 21:47 Alkaline Phosphatase 91 U/L (34-104) 01/10/22 21:47 Troponin I < 0.03 ng/ml (0-0.04) 01/10/22 21:47 Total Protein 6.5 gm/dl (6.0-8.3) 01/10/22 21:47 Albumin 4.3 gm/dl (3.4-5.0) 01/10/22 21:47 Globulin 2.2 gm/dl (2.5-4.0) L 01/10/22 21:47 Albumin/Globulin Ratio 2.0 (0.9-2) 01/10/22 21:47 TSH 2.494 uIu/ml (0.300-4.500) 01/10/22 21:47 SARS-CoV-2, RNA, NAAT NEGATIVE (NEGATIVE) 01/10/22 23:35 Code Status & VTE Plan Code Status Full code VTE Prophylaxis Plan VTE Prophylaxis will be ordered: Yes PG Care Time/CCT Total # of Minutes Spent Total Time Spent with Patient: Total time spent is greater than 50% in coordination of care (as documented) at patient's floor/unit and/or counseling patient: Coding Level of Care Code INT OBSERVATION CARE 70M LVL 3 Diagnoses Syncope R55 Syncope type: unspecified History of coronary artery stent placement Z95.5 Acute dehydration E86.0 Pulmonary embolism I26.99 COVID-19 U07.1 Head and neck cancer C76.0 Prostate cancer C61 Myocardial infarct I21.9 Urinary retention R33.9 History of radical neck dissection Z98.890 (1) Syncope Syncope type: unspecified Qualified Code(s): R55 - Syncope and collapse
[2022-01-11] MEDS ORDERED: ACETAMINOPHEN 325 MG TAB PO PRN (02:08)
[2022-01-11] MEDS ORDERED: LORazepam 0.5 MG TAB PO PRN (02:08)
[2022-01-11] MEDS ORDERED: NSS + 20MEQ KCL 20 MEQ/1,000 ML BAG IV SCH (02:08)
[2022-01-11] MEDS ORDERED: ONDANSETRON INJ 2 MG/ML 2 ML VIAL IV PRN (02:08)
[2022-01-11] MEDS ORDERED: traMADol HCL 50 MG TABLET PO PRN (02:08)
[2022-01-11] MEDS ORDERED: BACLOFEN 10 MG TAB PO PRN (02:08)
--- NOTE | 2022-01-11 02:45 | Urology Consultation ---
Date of Consultation January 11, 2022 Assessment & Plan (1) Urinary frequency: Patient has been admitted to the hospital service concerning his syncopal episode. We will follow along for the results of his syncopal evaluation Concerning patient's urinary frequency we recommend proceeding as follows: Does not appear as though urinalysis or culture has been sent. I have ordered these to evaluate for the possibility of urinary tract infection as patient has had a UTI in the past. If he does have a urinary tract infection would recommend reading accordingly I discussed with the patient the potential of utilizing a Davis catheter and he wishes to avoid this as he has had this in the past. I also discussed with the patient the potential of doing self catheterizations after voiding and he wishes to avoid this for the present time. I have ordered a bladder scan to be performed after patient voids to assess if he has significant postvoid residual. If significant postvoid residual is noted consideration can be given to optimizing the patient's medicines prove this condition. I would be hesitant to add any additional medicines such as increasing his dose of Flomax or adding a medication like Proscar until his syncope evaluation is completed. We can also revisit the possibility of performing self catheterizations if he does have some postvoid residual. Supervising Physician Co-Signing Physician Notes Agree with plan. History of Present Illness Requesting Physician: Urinary frequency Attending Physician: Jarad Sanford MD History of Present Illness This is a 66-year-old male who was admitted to [facility] secondary to syncope. Patient notes that he had episode of syncope earlier this evening. I discussed with the patient this episode he notes that he was merely sitting in bed eating dinner when he became lightheadedness and passed out. He said he did not hit his head or suffer any head injury. He denies any palpitations or chest pain. He has since been admitted to the hospital for f urther evaluation of this episode. We have been asked to see the patient secondary to urinary frequency. Patient says that in the past he was having episodes of urinary retention that was felt to be related to a prostate seed implant and prostate cancer. He did have a chronic indwelling Davis for up to 3 months in the past but this has since been removed. He notes that in the past he was also told to self catheterize but never did require this modality as he was able to urinate on his own. He does note currently he has been having urinary frequency and urgency that began last night. He notes that when he feels the urge to urinate he can void a large amount but does not feel as though he can empty his bladder completely and also notes that the urine stream is not quite strong. He notes that he tries to massage his suprapubic area of his abdomen and is able to expel some more urine this way but again cannot empty his bladder completely. He denies any hematuria. He denies any dysuria. Patient notes he does take Flomax seems to help his symptoms somewhat. He does note in the past he was actually taking this twice a day but it was cut back to once a day as it was felt to be c ontributing to some lightheadedness. Patient notes that he did take his Flomax this evening. Since arrival to the hospital he has had labs which include a CBC her white blood cell count and hemoglobin were normal. His platelet count is also noted to be normal. A chemistry profile showed sodium, potassium, BUN, and creatinine are all normal. At the time my interview with the patient is resting comfortably in bed in no distress. Allergies Allergy/AdvReac Type Severity Reaction Status Date / Time pollen extracts Allergy Intermediate Watery Verified 01/10/22 21:40 eyes, burning sinsus, CONGESTION Home Medications Medication Instructions Recorded Confirmed Type baclofen 10 mg tablet 10 mg PO TID PRN 10/30/18 01/10/22 History lorazepam 0.5 mg tablet 0.5 mg PO TID PRN 10/30/18 01/10/22 History zinc 50 mg tablet 50 mg PO QAM 09/13/20 01/10/22 History tramadol 50 mg tablet 50 mg PO Q8H PRN #60 tab 02/28/21 01/10/22 Rx Oxygen Home ea 06/06/21 08/09/21 History aspirin 81 mg tablet,delayed 81 mg PO DAILY 01/10/22 01/10/22 History release metoprolol tartrate 25 mg tablet 12.5 mg PO BID 01/10/22 01/10/22 History tamsulosin 0.4 mg capsule 0.4 mg PO DAILY 01/10/22 01/10/22 History Patient History Medical History Anxiety Kidney stone hx Lymphadenopathy, cervical (02/20/11) s/p radical neck dissection for SCC Myocardial infarct 2011 Pneumonia due to COVID-19 virus Prostate cancer Prostate cancer 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 Urinary retention Urinary symptom or sign Surgical History H/O removal of neck cyst 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 History of appendectomy History of cardiac cath 2012 History of colonoscopy History of cystoscopy with stone basketing History of radical neck dissection for SCC History of tonsillectomy Hx of heart artery stent x2 (2011) Hx of inguinal hernia repair Left Family History Father Heart disease Mother FH: kidney cancer Other No family history of adverse response to anesthesia Social History Smoking Status: Former smoker Tobacco Type: Cigarettes Age Started Using Tobacco: 17; Age Quit Using Tobacco: 55; packs per day: 1; Years Smoked: 38; Second Hand Exposure: No; Hx Alcohol Use: No Hx Substance Use: No Preferred Language: Malay Communication Ability: Effective Visual Impairment: No Limitations Hearing Ability: Normal Cash Register Servicer Required: No Beliefs That Will Affect Care: None marital status: Current Living Situation: Family Current Living Situation Comment: Lives at home with daughter and grandchildren current occupational status: employed How many Children do You have: 2 Feels Safe at Home: Yes Childhood Exposure to Second-Hand Smoke: Yes Diet Comment: sweat glands destroyed with RT, must drink water constantly and moisturize caffeine: Yes (tea 3 cups per day) during the past year weight has: remained stable Dental Care, Regularly: Yes Physical Activity Frequency: 3-4 Times per Week Physical Activity Frequency Comment: climbs stairs 300/day Seatbelt Use: always Sunscreen Use: Yes (irregularly, but stays out of the sun for the most part) Assistive Devices: Glasses Review of Systems Constitutional: no fever and no chills Eyes: + corrective lenses Ear, Nose, Mouth, Throat: no ear pain Respiratory: no cough Cardiovascular: no chest pain Gastrointestinal: no abdominal pain, no nausea and no vomiting Genitourinary: + as per Subjective / HPI and + urinary frequency; no dysuria, no hematuria or no flank pain Musculoskeletal: no back pain Integumentary: no rash Neurologic: no localized weakness Physical Exam Constitutional: well developed and well nourished; no acute distress Eyes: Wears glasses ENMT: Ears: no hearing impairment Neck: trachea midline Respiratory: normal respiratory effort; no respiratory distress and no labored breathing Cardiovascular: Rate/Rhythm: regular rate and regular rhythm Gastrointestinal (Abdomen): Soft, nontender, nondistended Musculoskeletal: No calf tenderness Skin: no rashes Neurologic: moves all extremities Psychiatric: A+Ox3, euthymic affect Results & Data ([facility]) Vital Signs (Past 12 Hours) Vital Signs Temp Pulse Pulse Resp BP BP Pulse Ox 01/11/22 02:08 36.6 C 72 18 171/87 H 99 01/11/22 01:29 71 16 165/94 H 97 01/10/22 23:30 74 16 145/88 H 100 01/10/22 21:40 77 77 18 157/94 H 96 01/10/22 21:00 36.6 C 86 86 H 169/101 H 98 PG Care Time/CCT Total # of Minutes Spent Total Time Spent with Patient: Total time spent is greater than 50% in coordination of care (as documented) at patient's floor/unit and/or counseling patient: Coding Level of Care Code 96037 Inpt Consult Level 5 Diagnoses Urinary frequency R35.0
[2022-01-11 03:31] LABS: Appearance Urine Clear (Clear); Bilirubin Urine Negative (Negative); Blood Urine Negative (Negative); Color Urine Yellow; Glucose Urine UA Negative (Negative); Ketones Urine Negative (Negative); Leukocyte Esterase Urine Negative (Negative); Nitrite Urine Negative (Negative); Protein Urine Negative (Negative); Specific Gravity Urine 1.008 (1.000-1.030); Urobilinogen Urine Negative (Negative)
[2022-01-11] MEDS ORDERED: ASPIRIN 81 MG ECTAB PO SCH (09:00)
[2022-01-11] MEDS ORDERED: ZINC SULFATE 220 MG CAPSULE PO SCH (09:00)
[2022-01-11] MEDS ORDERED: METOPROLOL TARTRATE 25 MG TAB PO SCH (09:00)
[2022-01-11] MEDS ORDERED: ENOXAPARIN INJ 40 MG/0.4 ML SYR SQ SCH (09:00)
[2022-01-11] MEDS: TAMSULOSIN HCL 0.4 MG CAP PO SCH ×2 (09:19→09:31)
--- NOTE | 2022-01-11 09:22 | Urology Progress Note ---
Date of Service January 11, 2022 Assessment & Plan (1) Urinary frequency: Plan: 66yo M with a hx of prostate cancer s/p brachytherapy (Nov 2020) admitted with syncope and acute dehydration. - Urology consulted for urinary frequency. - Pt afebrile, labs reviewed - Wbc and creatinine normal. - Urinalysis unremarkable, culture pending. - Bladder scanned yesterday for 35ml, which is reassuring. - Reports he is voiding without issue - Continue to monitor, bladder scan as needed. - Continue tamsulosin. - Follow culture, treat if indicated. - Will arrange outpatient follow-up with our service for continued care. - Patient agreeable to plan, all questions were answered. - will sign-off, please contact us with any further questions, concerns, or changes in patient status. Admission and Anticipated Discharge Date Admission Date: January 11, 2022 Subjective Pt examined at bedside this AM. Awake, resting in bed on arrival. No acute distress. Reports he is feeling much better this morning. Voiding without issue. He reports the urinary frequency, urgency started last night, but feels this has improved this morning. No hematuria/dysuria. Feels he is emptying his bladder well. No additional complaints at time of exam. Bladder scanned 01/11 @ 0300 for 35ml. Review of Systems Constitutional: as per Subjective / HPI Cardiovascular: no chest pain, no dyspnea and no lightheadedness Genitourinary: + as per Subjective / HPI Physical Exam Constitutional: well developed and well nourished; no acute distress Respiratory: normal respiratory effort; no respiratory distress and no labored breathing Neurologic: moves all extremities and awake Psychiatric: Orientation: alert, oriented x 3 and cooperative Results & Data ([facility]) Vital Signs (Past 12 Hours) Vital Signs Temp Pulse Pulse Resp BP Pulse Ox 01/11/22 07:54 36.6 C 85 18 129/79 97 01/11/22 03:58 73 01/11/22 02:08 36.6 C 72 18 171/87 H 99 01/11/22 01:29 71 16 165/94 H 97 01/10/22 23:30 74 16 145/88 H 100 01/10/22 21:40 77 77 18 157/94 H 96 PG Care Time/CCT Total # of Minutes Spent Total Time Spent with Patient: Total time spent is greater than 50% in coordination of care (as documented) at patient's floor/unit and/or counseling patient: Coding Level of Care Code None Diagnoses Urinary frequency R35.0
--- NOTE | 2022-01-11 15:02 | Ultrasound Report ---
ULTRASOUND OF THE CAROTID ARTERIES CLINICAL HISTORY: Syncope. COMPARISON STUDY: Carotid artery ultrasound dated 12/20/2014. TECHNIQUE: Real-time, grayscale, and color Doppler sonography of the carotid arteries is performed. I mages are reviewed in the transverse and longitudinal planes. FINDINGS: The carotid arteries are patent bilaterally and demonstrate antegrade flow. There is significant athe rosclerotic plaque seen in the right common carotid artery and carotid bulb. There are elevated veloc ities within the distal right common carotid artery which measure up to 269 cm/s. Normal doppler ildefonso rial waveforms are seen throughout. Velocity measurements are listed below. Common carotid peak systolic velocity (cm/sec): RIGHT: 269 LEFT: 112 ICA proximal peak systolic velocity (cm/sec): RIGHT: 84 LEFT: 90 ICA mid peak systolic velocity (cm/sec): RIGHT: 79 LEFT: 87 ICA distal peak systolic velocity (cm/sec): RIGHT: 86 LEFT: 78 ICA/CC peak systolic ratio: RIGHT: 3.1 LEFT: 0.8 Antegrade flow was shown in the vertebral arteries. The external carotid arteries are patent. IMPRESSION: 1. There are elevated velocities within the mid to distal right common carotid artery indicating grea ter than 70% stenosis. No elevated velocities are seen within the right internal carotid artery. 2. There is no sonographic evidence of hemodynamically significant stenosis in the left carotid arter ial system. 3. Antegrade flow is shown in the vertebral arteries. ACT 112: Negative or not required by law. Electronically signed by: Jason Flowers M.D. 01/11/2022 3:00 PM
[2022-01-11 15:10] VITALS: BP 151/77; PULSE 68; TEMP 97.5; O2SAT 95
--- NOTE | 2022-01-11 15:26 | XCELERA ---
[id number]
--- NOTE | 2022-01-11 15:43 | Discharge Summary ---
Date of Service January 11, 2022 Admission HPI Per Admitting Provider The patient is a 66-year-old male with a past medical history including pulmonary embolism, COVID-19 infection, urinary retention, head and neck cancer status post radiation therapy, prostate cancer status post radiation seed implant, myocardial infarction, and stented coronary artery. He reports that he had taken a couple bites of food from a tray that was on his lap, and then the next thing he remembers he was waking up. He had no warning symptoms such as palpitations, lightheadedness or dizziness. He did not have any loss of bowel or bladder function. He does feel a little bit woozy in his head at this time. He reports having had a syncopal episode in the past, that was thought associated to anxiety and panic attacks, and at that time was taking Flomax twice daily. He continues to take Flomax once daily due to significant issues with urinary retention. He has significant issues with dry mouth secondary to radiation associated with right-sided head and neck cancer with history of surgery. Principal Diagnosis Syncope Mild dehydration R Carotid stenosis Discharge Exam GENERAL: 66 yo well-developed, well-nourished WM NAD. LUNGS: Clear to auscultation bilaterally. No accessory muscle use. No W/R/R. CARDIOVASCULAR: Regular rate and rhythm. No M/G/R. No JVD. ABDOMEN: Soft, non-tender and non-distended. BS normal x 4 quad. EXTREMITIES: No edema. Non-tender. Peripheral pulses +2/4. NEUROLOGIC: A&O x3. No focal neurological deficits. CN II-XII grossly intact. PSYCHIATRIC: Cooperative. Appropriate mood and affect. SKIN: Warm, dry, intact. No rashes or lesions. Discharge Data Allergies Allergy/AdvReac Type Severity Reaction Status Date / Time pollen extracts Allergy Intermediate Watery Verified 01/10/22 21:40 eyes, burning sinsus, CONGESTION Consultations 01/10/22 23:23 ED Decision to Admit Stat 01/11/22 02:08 Consult Urology Routine Ordered Studies Carotid Doppler Study 01/11/22 14:15 ULTRASOUND OF THE CAROTID ARTERIES CLINICAL HISTORY: Syncope. COMPARISON STUDY: Carotid artery ultrasound dated 12/20/2014. TECHNIQUE: Real-time, grayscale, and color Doppler sonography of the carotid arteries is performed. Images are reviewed in the transverse and longitudinal planes. FINDINGS: The carotid arteries are patent bilaterally and demonstrate antegrade flow. There is significant atherosclerotic plaque seen in the right common carotid artery and carotid bulb. There are elevated velocities within the distal right common carotid artery which measure up to 269 cm/s. Normal doppler arterial waveforms are seen throughout. Velocity measurements are listed below. Common carotid peak systolic velocity (cm/sec): RIGHT: 269 LEFT: 112 ICA proximal peak systolic velocity (cm/sec): RIGHT: 84 LEFT: 90 ICA mid peak systolic velocity (cm/sec): RIGHT: 79 LEFT: 87 ICA distal peak systolic velocity (cm/sec): RIGHT: 86 LEFT: 78 ICA/CC peak systolic ratio: RIGHT: 3.1 LEFT: 0.8 Antegrade flow was shown in the vertebral arteries. The external carotid arteries are patent. IMPRESSION: 1. There are elevated velocities within the mid to distal right common carotid artery indicating greater than 70% stenosis. No elevated velocities are seen within the right internal carotid artery. 2. There is no sonographic evidence of hemodynamically significant stenosis in the left carotid arterial system. 3. Antegrade flow is shown in the vertebral arteries. ACT 112: Negative or not required by law. Electronically signed by: Jason Flowers M.D. 01/11/2022 3:00 PM Echocardiogram: 1. normal left ventricular size and systolic function. EF 60 to 65%. No regional wall motion abnormalities. Moderate concentric left ventricular hypertrophy. 2. Mild mitral regurgitation. 3. Normal estimated right ventricular systolic pressure. 4. Technically difficult study, enhance with IV Definity. 5. Compared to prior study on 02/07/2012, LV systolic function is now normal and wall motion abnormalities are no longer present. Hospital Course (1) Syncope: Syncope- The patient admitted to telemetry for serial cardiac enzymes, serial EKG's, cardiac rhythm monitoring and a 2-D echocardiogram ?Arrhythmia as pt has little to no warning before this happens The patient does appear to have significant dry mouth and dehydration The patient has a difficult balance between having appropriate oral intake due to side effects of severe xerostomia from radiation associated with right-sided head and neck cancer, and dealing with urinary frequency and urgency associated with prostate cancer and radiation seed implants Echocardiogram completed today with results as outlined above Carotid dopplers demonstrated 70% stenosis in the distal right common carotid artery, d/w vascular, can f/u as outpatient as he is considered "asymptomatic" since he did not have a cva/tia Serial trops have been negative x3, EKG nonacute (2) Acute dehydration: Acute on chronic dehydration- We will gently rehydrate with 1 L of IV fluids at 60 mils per hour which was sto pped this afternoon at patient's request (3) Head and neck cancer: As noted above, patient has undergone 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 (4) Prostate cancer: Prostate cancer status post radiation seed implant Patient continues have urinary frequency and urgency. He has has had an indwelling Davis catheter for up to 3 months in the past. He was on Flomax twice daily, but this was reduced to daily due to concerns regarding possible contributing to previous syncopal episode. (5) Urinary retention: Patient reports that he has significant urinary retention if he misses even 1 dose of his Flomax We will consult urology to try to help patient with his significant urinary retention and urinary frequency and urgency. There needs to be a balance found between his difficulty with keeping up with oral intake of fluids that he needs related to xerostomia associated with his head neck radiation treatments, and issues with his prostate cancer and radiation seed implants Appreciate urology input, UA collected, no evidence of UTI, urine culture pending but he is asymptomatic, would not initiate abx Urology to arrange for outpatient follow up in the office (6) Myocardial infarct: History of myocardial infarction/hypertension/stented coronary artery Continue metoprolol tartrate 12.5 mg p.o. twice daily and aspirin 81 mg daily Ordered serial troponins which were negative x3 Echo as above (7) History of coronary artery stent placement: See above (8) History of radical neck dissection: See above (9) COVID-19: Patient was admitted and treated for COVID-19 pneumonia from 03/03- 03/13/2021, that he reports he recuperated completely from He has followed with pulmonology in the interim (10) Pulmonary embolism: Noted on CT of 03/07/2021 Patient has no tachypnea, tachycardia, hypoxia or other symptoms suggestive of a new PE (11) Carotid stenosis, asymptomatic: Incidentally found on carotid dopplers performed today d/t syncope At this time, patient has not had any further syncopal episodes. His work-up is as outlined above. Will arrange for a 30-day event monitor to look for arrhythmias. He has been instructed to NOT DRIVE until he is seen by his PCP in follow up. We would advise f/u with pcp within 1 week of discharge or sooner if able. Recommend f/u with urology as well as vascular surgery (Dr. Matos) due to new incidental finding of carotid stenosis. He is medically and hemodynamically stable for discharge home today. Above plan of care has been d/w Dr. Carter who has also seen and evaluated this patient. Total Time Total Time Spent Total Time Spent (In Minutes): <30 minutes Discharge Plan Discharge Items Patient Disposition: Home - Self-Care Reason For Visit: SYNCOPE Discharge Diagnosis: Passed out--uncertain cause Activity: Resume your previous activity Non-emergency contact: Primary Care Provider Call non-emergency contact if: you have any medication questions and your symptoms worsen Follow-up/Referrals: Jerry Christina MD [Primary Care Provider] - Aurelio Matos MD [Physician] - ([facility]. This office will be in touch with appointment information.) Diet: Heart Healthy Diet Texture: Dental soft (bite-sized) Addtl Attending Provider Instructions: You were hospitalized due to passing out at home, uncertain as to the cause. Could be related to being dehydrated. You have been treated with IV fluids in order to correct your hydration. An echocardiogram (ultrasound of your heart) as well as carotid dopplers (looking at the arteries in your neck) have been performed. The ultrasound looking at the arteries in your neck noted that there is a blockage (due to plaque) that is measuring around 70%. For that reason, we have contacted vascular surgery who advises outpatient follow up in order to discuss procedure to clean out this blockage through a procedure called: Carotid Endarterectomy. Our nurse navigator will assist in getting you an appointment with Dr. Matos to see as an outpatient. The echocardiogram (ultrasound of your heart): No significant abnormalities were seen. Some leaking of your mitral valve was noted but this was very mild. You have not had any EKG changes or elevated cardiac biomarkers that would indicate that you have had a heart attack. We also checked your blood pressure in different positions to make sure you were not having issues maintaining your blood pressure in different positions which is not the case (your blood pressure and heart rate were normal and unchanged in all positions). At this point, we would recommend you wear a heart monitor for the next 30 days. This will be delivered to your home with instructions. In the interim, we would advise you to follow up with your family doctor within 1 week of discharge (ideally Sunday 01/14 or Monday 01/15) would be preferable. Call your PCP sooner if needed or any questions. We would recommend NO DRIVING until you are seen by your family doctor in follow up. It was also recommended that you follow up with urology due to your issues regarding urinary frequency. It does not appear that you have a urinary tract infection at this time and subsequently you are not being prescribed antibiotics. If you do not already have an appointment scheduled, we would recommend you contact the office to schedule a follow up. Pending Studies at Discharge: No Stand-Alone Forms: My [facility] CaLivingBenefits, Smoking Cessation Medications and DC Order Prescriptions: Continued tramadol 50 mg tablet 50 mg PO Q8H PRN (Reason: dysuria) Qty: 60 RF: 1 zinc 50 mg tablet 50 mg PO QAM RF: 0 (DME) Oxygen Home Liters Per Minute See Rx Instructions .ROUTE .MEDSUPPLY RF: 0 lorazepam 0.5 mg tablet 0.5 mg PO TID PRN (Reason: Anxiety) RF: 0 baclofen 10 mg tablet 10 mg PO TID PRN (Reason: Pain) RF: 0 aspirin 81 mg Tablet,Delayed Release (Dr/Ec) 81 mg PO DAILY RF: 0 metoprolol tartrate 25 mg tablet 12.5 mg PO BID RF: 0 tamsulosin 0.4 mg capsule 0.4 mg PO DAILY RF: 0 Discharge Orders: Discharge Order (Routine); Ordered 01/11/22 Ordered By: Erin Alaniz/Other Patient Handouts: What Is Event Monitoring?, Carotid Endarterectomy Pre Op Admission Data Admit Date/Time: 01/11/22 00:18 Attending Provider: Jayant Carter Admit Provider: Jarad Sanford Primary Care Provider: Jerry Christina Other Providers: Jarad Sanford ; Devendra Veliz Other Interventions: Discharge Summary Assessment (RN) Last Done: 01/11/22 17:08 Supervising Physician Co-Signing Physician Notes Patient seen at bedside prior to discharge. Plan was discussed with Erin Jim PA-C prior to discharge. Feels well, no symptoms at bedside assessment. No chest pain, chest pressure, lightheadedness, dizziness. Reviewed cardiac eval above, patient to have event monitor as outpatient. Discussed carotid stenosis, this was discussed by PA and vascular and was recommended for outpatient follow-up. No abnormalities on echo, no evidence of stroke. Heart rate regular, no murmurs, breathing unlabored. Agree with plan as above. Coding Level of Care Code OBSERV/HOSP SAME DATE LVL 2 Diagnoses Syncope R55 Syncope type: unspecified Acute dehydration E86.0 Head and neck cancer C76.0 Prostate cancer C61 Urinary retention R33.9 Myocardial infarct I21.9 History of coronary artery stent placement Z95.5 History of radical neck dissection Z98.890 COVID-19 U07.1 Pulmonary embolism I26.99 Carotid stenosis, asymptomatic I65.29
--- NOTE | 2022-01-11 22:07 | Electrocardiogram Report ---
Test Reason : Blood Pressure : / mmHG Vent. Rate : 077 BPM Atrial Rate : 077 BPM P-R Int : 170 ms QRS Dur : 086 ms QT Int : 374 ms P-R-T Axes : 036 079 063 degrees QTc Int : 423 ms Poor data quality, interpretation may be adversely affected Normal sinus rhythm When compared with ECG of 08-MAR-2021 09:12, Premature ventricular complexes are no longer Present Vent. rate has decreased BY 42 BPM Criteria for Inferior infarct are no longer Present T wave inversion no longer evident in Inferior leads Confirmed by Joseph Alonzo ([id number]) on 01/11/2022 10:07:10 PM Referred By: REFERRED SELF Confirmed By:Joseph Alonzo
== END 2022-01-11 17:47 | disposition home or self-care (01) ==
LOC: 2S 20:42 → ED 20:42 → SUATTDRO 01-11 00:18 → 2S 01-11 01:55

== ENCOUNTER 2022-07-06 21:44 | Observation (INO) ==
[2022-07-06 22:35] LABS: Basophils # (auto) 0.03 K/uL (0-0.2); Basophils % (auto) 0.6 %; Eosinophils # (auto) 0.19 K/uL (0-0.50); Eosinophils % (auto) 3.7 %; Hematocrit (blood only) 41.3 % (40.1-51.0); Hemoglobin 13.9 g/dl (14.0-18.0); Immature Granulocytes # (auto) 0.02 K/uL (0.00-0.02); Immature Granulocytes % (auto) 0.4 %; Lymphocytes # (auto) 1.48 K/uL (1.2-3.4); Mean Corpuscular Hemoglobin 29.1 pg (25.0-34.0); Mean Corpuscular Hgb Conc 33.7 g/dL (32.0-36.0); Mean Corpuscular Volume 86.6 fL (80.0-100.0); Mean Platelet Volume 10.7 fL (9.4-12.4); Monocytes # (auto) 0.43 K/uL (0.24-0.82); Monocytes % (auto) 8.4 %; Neutrophils # (auto) 2.95 K/uL (1.4-6.5); Neutrophils % (auto) 57.9 %; Platelet Count 164 K/uL (130-400); RDW Coefficient of Variation 12.8 % (11.5-14.5); RDW Standard Deviation 40.5 fL (36.4-46.3); Red Blood Count 4.77 M/uL (4.63-6.08)
[2022-07-06] MEDS ORDERED: ASPIRIN CHEW 324 MG PO STA (22:38)
--- NOTE | 2022-07-06 22:38 | Emergency Department Note ---
Impression & Plan Chest pain, Lightheadedness ED Provider Note NAME: ELVIS SAM JR AGE: 67 SEX: M : 1955 ARRIVES VIA: Ambulance INFORMANT: Patient ED PROVIDER(S): Darrin Sumner DO CHIEF COMPLAINT: lightheaded and chest pain HPI: Patient is a 67-year-old male with a past medical history of kidney stone, carotid stenosis, previous [place] who presents to the ER for lightheadedness and chest pressure. Symptoms started with lightheadedness around 7 PM. He sat through the movie and then left as he was not feeling well. He went to drive and started noticing chest pressure in the middle of his chest. Resolved with 3 of nitro. He denies any arm or jaw pain with this. No significant shortness of breath. No belly pain, nausea, vomiting, or diarrhea. No dysuria, urgency, or frequency. No other exacerbating or remitting factors. Last catheterization was in 2011. He has a total of 2 stents. ROS: See above HPI for pertinent positives & negatives. A total of 10 systems reviewed and were otherwise negative. PAST MEDICAL HISTORY:See Below PAST SURGICAL HISTORY:See Below FAMILY HISTORY:See Below SOCIAL HISTORY:See Below HOME MEDICATIONS:See Below ALLERGIES:See Below VITALS:See Below PHYSICAL EXAMINATION: GENERAL: Sitting up in bed, alert, well appearing, well nourished, no distress, non-toxic EYE EXAM: normal conjunctiva. OROPHARYNX: no exudate, no erythema, lips, buccal mucosa, and tongue normal and mucous membranes are moist NECK: supple, no nuchal rigidity, no adenopathy, non-tender LUNGS: Clear to auscultation. Normal chest wall mechanics HEART: no murmurs, S1 normal and S2 normal ABDOMEN: abdomen soft, non-tender, normo-active bowel sounds, no masses, no rebound or guarding. UPPER EXTREMITIES: upper extremities are grossly normal. LOWER EXTREMITIES: No pitting edema. NEURO EXAM: Normal sensorium, cranial nerves II-XII grossly intact, normal speech, no gross weakness of arms, no gross weakness of legs. MEDICAL DECISION MAKING: Patient is a 67-year-old male who presents ER with above-stated complaint with a previous history of NJ and 2 previous stents for chest pressure and lightheadedness. Resolved with nitro. IV was established blood work was obtained. Labs show no significant leukocytosis or anemia. BMP along with LFTs bilirubin and lipase was unremarkable. COVID was negative. Troponin was n egative. EKG was nondiagnostic. Chest x-ray was unremarkable. Patient was updated bedside. He was given aspirin. He was discussed with Bianca Pinon for further evaluation and observation. Triage Nursing notes reviewed. Limited review of prior medical records performed Vital Signs: reviewed and remarkable for HTN Differential diagnosis: Cardiac ischemia, aortic dissection, pulmonary embolism, pneumothorax, pneumonia, pericarditis, myocarditis, esophageal rupture, GERD, cholecystitis, pancreatitis, musculoskeletal, as well as other pathologies. ER treatment provided: See below Diagnostics interpreted by me: ECG: Sinus rhythm rate of 78 Normal axis T wave version lead III QTC 440 Cardiac Monitoring: An order was placed for continuous cardiac monitoring. The monitor shows a rate of 80 with sinus rhythm. Laboratory studies: As stated above and show below. Imaging studies: Portable AP upright 1 view chest unremarkable Consultation(s): none Procedures: none Critical Care: None Past Med/Surg History Medical History (Updated 07/07/22 @ 02:04 by Darrin Sumner DO) Anxiety CAD (coronary artery disease) History of COVID-19 diagnosed 02/2021 @ [facility]--hospitalized for 10 days, "was on oxygen till middle of April 2021"--no issues now Kidney stone hx Lymphadenopathy, cervical (02/20/11) s/p radical neck dissection for SCC Myocardial infarct 2011 Pneumonia due to COVID-19 virus (~02/2021) hx of, no issues currently Prostate cancer Pulmonary embolism hx of after COVID 02/2021--no issues or anticoagulants now 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 Syncope hx of 01/10/2022--admitted to [facility]--pt currently wearing a heart monitor per syncope discharge protocol till 02/15/22 Urinary symptom or sign Surgical History H/O removal of neck cyst 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 History of appendectomy History of brachytherapy (~11/29/20) History of cardiac cath 2012 History of colonoscopy History of cystoscopy with stone basketing History of left cataract surgery History of radical neck dissection for SCC History of tonsillectomy Hx of heart artery stent x2 (2011) Hx of inguinal hernia repair Left Family History Father Heart disease Mother FH: kidney cancer Breast cancer Other No family history of adverse response to anesthesia Denies family history of Prostate cancer Colorectal cancer Social History Smoking Status: Never smoker Tobacco Type: Cigarettes Age Started Using Tobacco: 17; Age Quit Using Tobacco: 55; packs per day: 1; Years Smoked: 38; Second Hand Exposure: No; Do You Dip or Chew Tobacco: No; Tobacco Cessation Education Requested by Patient: No Hx Alcohol Use: No Hx Substance Use: No Preferred Language: Azeri Communication Ability: Effective Visual Impairment: No Limitations Hearing Ability: Normal Software Configuration Manager Required: No Beliefs That Will Affect Care: None marital status: Current Living Situation: Family Current Living Situation Comment: Lives at home with daughter and grandchildren current occupational status: employed How many Children do You have: 2 Other Information That Helps Us Care for You: No Feels Safe at Home: Yes Safety Concerns: Feels Safe At This Time Childhood Exposure to Second-Hand Smoke: Yes Diet Comment: sweat glands destroyed with RT, must drink water constantly and m oisturize caffeine: Yes (tea 3 cups per day) during the past year weight has: remained stable Dental Care, Regularly: Yes Physical Activity Frequency: 3-4 Times per Week Physical Activity Frequency Comment: climbs stairs 300/day Seatbelt Use: always Sunscreen Use: Yes (irregularly, but stays out of the sun for the most part) Assistive Devices: Glasses Allergies Allergies Allergy/AdvReac Type Severity Reaction Status Date / Time pollen extracts Allergy Intermediate Watery Verified 07/07/22 00:34 eyes, burning sinsus, CONGESTION Home Meds Home Medications Medication Instructions Recorded Confirmed baclofen 10 mg tablet 10 mg PO TID PRN Pain 10/30/18 07/07/22 zinc 50 mg tablet 50 mg PO QAM 09/13/20 07/07/22 aspirin 81 mg tablet,delayed 81 mg PO QAM 01/10/22 07/07/22 release metoprolol tartrate 25 mg tablet 12.5 mg PO BID 01/10/22 07/07/22 atorvastatin 80 mg tablet 80 mg PO QAM 01/30/22 07/07/22 multivitamin 1 tab PO DAILY 06/17/22 07/07/22 tamsulosin 0.4 mg capsule See Rx Instructions PO HS 06/17/22 07/07/22 clotrimazole-betamethasone 1 1 applic topical TID PRN .. 07/07/22 07/07/22 %-0.05 % topical cream Previous Rx's Medication Instructions Recorded losartan 25 mg tablet 25 mg PO DAILY 30 days #30 tabs 06/28/22 lorazepam 0.5 mg tablet 0.5 mg PO DAILY PRN Anxiety 30 07/04/22 days #30 tabs Results & Data (ED) Vital Signs Vital Signs - 24 hr 07/06/22 22:07 07/06/22 23:05 07/07/22 00:00 Temperature 36.9 C Temperature Source Oral Pulse Rate 72 75 71 Respiratory Rate 24 24 13 Respiratory Effort / Characteristics Non-Labored Spontaneous Respiratory Depth Normal Blood Pressure 180/91 H 171/102 H 150/100 H Blood Pressure Mean 120 125 116 Pulse Oximetry 97 99 97 Oxygen Delivery Method Room Air Room Air Room Air Sepsis New/Unexplained Change in Mental Status N/A Sepsis Action Taken by Nursing No Action Required Laboratory Data Result diagrams: 07/06/22 22:20 07/06/22 22:20 Lab Results 07/06/22 07/06/22 07/06/22 Range/Units 22:17 22:20 22:20 WBC 5.10 (4.8-10.8) K/ul RBC 4.77 (4.63-6.08) M/uL Hgb 13.9 L (14.0-18.0) g/dl Hct 41.3 (40.1-51.0) % MCV 86.6 (80.0-100.0) fL MCH 29.1 (25.0-34.0) pg MCHC 33.7 (32.0-36.0) g/dL RDW Std Deviation 40.5 (36.4-46.3) fL RDW Coeff of Maikel 12.8 (11.5-14.5) % Plt Count 164 (130-400) K/uL MPV 10.7 (9.4-12.4) fL Immature Gran % (Auto) 0.4 % Neut % (Auto) 57.9 % Lymph % (Auto) 29.0 % [place] % (Auto) 8.4 % Eos % (Auto) 3.7 % Baso % (Auto) 0.6 % Neut # (Auto) 2.95 (1.4-6.5) K/uL Lymph # (Auto) 1.48 (1.2-3.4) K/uL [place] # (Auto) 0.43 (0.24-0.82) K/uL Eos # (Auto) 0.19 (0-0.50) K/uL Baso # (Auto) 0.03 (0-0.2) K/uL Immature Gran # (Auto) 0.02 (0.00-0.02) K/uL Sodium 140 (136-145) mmol/L Potassium 3.7 (3.5-5.1) mmol/L Chloride 105 (98-107) mmol/L Carbon Dioxide 28 (21-32) mmol/L Anion Gap 7 (3-11) BUN 11 (6-23) mg/dl Creatinine 0.96 (0.6-1.4) mg/dl Est Cr Clr Drug Dosing 68.3 ml/min Est GFR ( Amer) 95.1 ml/min Est GFR (Non-Af Amer) 82.0 ml/min BUN/Creatinine Ratio 11.5 (10-20) Glucose 106 H (70-99(Fasting)) mg/dl Calcium 9.8 (8.5-10.1) mg/dl Total Bilirubin 0.6 (0.2-1.0) mg/dl AST 21 (13-39) U/L ALT 29 (7-52) U/L Alkaline Phosphatase 98 (34-104) U/L Troponin I High Sens 8.6 (0-20) pg/ml Total Protein 6.6 (6.0-8.3) gm/dl Albumin 4.4 (3.4-5.0) gm/dl Globulin 2.2 L (2.5-4.0) gm/dl Albumin/Globulin Ratio 2.0 (0.9-2) Lipase 46 (11-82) U/L SARS-CoV-2, RNA, NAAT NEGATIVE (NEGATIVE) Administered Medications Discontinued Medications Aspirin (Aspirin Chew 324 Mg) 324 mg PO NOW STA Stop: 07/06/22 22:39 Last Admin: 07/06/22 22:54 Dose: 324 mg Documented By: DONN Lorazepam (Lorazepam 1 Mg Tab) 0.5 mg SL NOW STA Stop: 07/06/22 23:00 Last Admin: 07/06/22 23:05 Dose: 0.5 mg Documented By: DONN Nitroglycerin (Nitroglycerin 2% Ointment 30gm Tube) 1 inch EXT Q6H DONAL Stop: 08/05/22 22:44 Last Admin: 07/06/22 22:54 Dose: 1 inch Documented By: DONN Discharge Plan Visit Data Chief Complaint: Dizziness Stated Complaint: Chest Pain, Dizziness ED Provider: Darrin Sumner Discharge Problem: Chest pain, Lightheadedness Patient Disposition: Admitted As Inpatient Discharge Instructions Interventions: ED Discharge Assessment Last Done: 07/07/22 01:07
[2022-07-06] MEDS ORDERED: NITROGLYCERIN 2% OINTMENT 30GM TUBE EXT SCH (22:45)
[2022-07-06] MEDS ORDERED: LORazepam 1 MG TAB SL STA (22:59)
[2022-07-06 23:06] LABS: Albumin Level 4.4 gm/dl (3.4-5.0); BUN Creatinine Ratio 11.5 (10-20); Bilirubin,Total 0.6 mg/dl (0.2-1.0); Calcium 9.8 mg/dl (8.5-10.1); Creatinine Clr Calc Pharmacy 68.3 ml/min; Est GFR (African American) 95.1 ml/min; Globulin 2.2 gm/dl (2.5-4.0); Potassium 3.7 mmol/L (3.5-5.1); Total Protein 6.6 gm/dl (6.0-8.3); Troponin I High Sensitivity 8.6 pg/ml (0-20)
--- NOTE | 2022-07-07 00:28 | History & Physical Report ---
Date of Service July 07, 2022 Assessment & Plan (1) Chest pain: Plan: Patient reports an episode this evening with palpitations, substernal chest discomfort, tingling in his fingers, lightheadedness and near syncope. Possibly vasovagal in nature given description of prodrome. Patient has prior history of syncope. Episodes seem to have a similar prodrome, tunnel vision as well as lightheadedness, resolved with sitting Check orthostatic vital signs Telemetry monitoring Trend troponin Nitro as needed EKG as needed with chest pain Briefly discussed vagal maneuvers such as leg crossing, squatting and squeezing legs together should he feel presyncopal Patient has documentation of orthostatic lightheadedness as well as symptomatic bradycardia at times. He has had outpatient cardiac monitoring in the past. Is to have referral placed for vascular surgery regarding his carotid stenosis. Doubtful this is playing a role in today's presentation (2) CAD (coronary artery disease): Plan: Patient with history of LA in 2012 status post bare-metal stent x2 placed to the RCA. He did have moderate atherosclerosis in the LAD and left circumflex. He had some substernal chest tightness this evening which has since resolved. Troponin = 8.6, EKG with some T wave inversions present in inferior leads Telemetry monitoring Trend troponins Continue aspirin, metoprolol, atorvastatin and losartan (3) Prostate cancer: Plan: Patient with history of prostate cancer. Most recent PSA from May 2022 judy puri She is to follow with by annual PSA checks Next check November 2022 (4) Anxiety: Plan: Ongoing. Patient reports having "a terrible decade" during which he was diagnosed with head and neck cancer and received surgery, radiation and chemotherapy. Subsequent diagnosis of prostate cancer as well as COVID-19 infection with associated PE. He seems to have significant anxiety regarding these health issues. Was previously on Ativan. Anxiety is being addressed with his PCP with ultimate plan to weaning off the Ativan and placing on SSRI. May also consider hydroxyzine as needed with caution for anticholinergic effects. F/E/N - Heplock. Monitor electrolytes. Regular diet as tolerated with aspiration precautions Ppx - lovenox Code - Full Dispo - Obs to medical with telemetry History of Present Illness Chief Complaint: dizziness, chest pressure Primary Care Provider: Smitha Iglesias MD Karthik Harris is a 67 yo male presenting with episode of dizziness and chest pressure. Patient with history of coronary artery disease status post stent x2, prior PE associated with COVID-19 infection, carotid artery stenosis (70% right internal carotid artery stenosis), head and neck cancer status post radical dissection, radiation and chemotherapy. He was watching a movie this evening around 1900 when he became lightheaded and dizzy. He had tingling in his fingers as well as palpitations and substernal chest pressure. He felt as if he was going to pass out. He took nitro x3 with some improvement. Symptoms have essentially resolved at this point. Patient with prior history of syncope. He reports blacking out in December 2021. He was hospitalized during this time and found to have a 70% occlusion of the right internal carotid artery. He follows with Dr. Iglesias and is to be referred to vascular surgery for management. He reports frequent episodes of presyncope, most recently last week while he was at work he felt as if he was going to pass out. He reports that his vision becomes tunneled and he becomes lightheaded. He sat down and the feelings passed. These episodes are anxiety provoking for him. He is active and works frequently in the yard. He denies exertional symptoms such as shortness of breath, dizziness, palpitations or chest pain. In the ER he is afebrile, hypertensive otherwise hemodynamically stable, no acute distress ER course: Aspirin 324 mg, Ativan 0.5 mg, nitro Allergies Allergy/AdvReac Type Severity Reaction Status Date / Time pollen extracts Allergy Intermediate Watery Verified 07/07/22 00:34 eyes, burning sinsus, CONGESTION Home Medications Medication Instructions Recorded Confirmed Type baclofen 10 mg tablet 10 mg PO TID PRN Pain 10/30/18 06/28/22 History zinc 50 mg tablet 50 mg PO QAM 09/13/20 06/28/22 History aspirin 81 mg tablet,delayed 81 mg PO QAM 01/10/22 06/28/22 History release metoprolol tartrate 25 mg tablet 12.5 mg PO BID 01/10/22 06/28/22 History atorvastatin 80 mg tablet 80 mg PO QAM 01/30/22 06/28/22 History multivitamin 1 tab PO DAILY 06/17/22 06/28/22 History tamsulosin 0.4 mg capsule See Rx Instructions PO HS 06/17/22 06/28/22 History losartan 25 mg tablet 25 mg PO DAILY 30 days #30 tabs 06/28/22 06/28/22 Rx tetanus-diphtheria toxoids-Td 2 Lf 0.5 ml IM ONCE #5 mL 06/28/22 06/28/22 Rx unit-2 Lf unit/0.5 mL IM suspension (TDVAX) varicella-zoster glycoE vacc-[id number] 0.5 ml IM ONCE #1 ea 06/28/22 06/28/22 Rx adj(PF) 50 mcg/0.5 mL IM susp, kit (Shingrix (PF)) lorazepam 0.5 mg tablet 0.5 mg PO DAILY PRN Anxiety 30 07/04/22 07/04/22 Rx days #30 tabs Past Med/Surg History Medical History (Updated 07/07/22 @ 00:43 by Meggan Pinon DO) Anxiety CAD (coronary artery disease) History of COVID-19 diagnosed 02/2021 @ [facility]--hospitalized for 10 days, "was on oxygen till middle of April 2021"--no issues now Kidney stone hx Lymphadenopathy, cervical (02/20/11) s/p radical neck dissection for SCC Myocardial infarct 2011 Pneumonia due to COVID-19 virus (~02/2021) hx of, no issues currently Prostate cancer Pulmonary embolism hx of after COVID 02/2021--no issues or anticoagulants now 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 Syncope hx of 01/10/2022--admitted to [facility]--pt currently wearing a heart monitor per syncope discharge protocol till 02/15/22 Urinary symptom or sign Surgical History H/O removal of neck cyst 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 History of appendectomy History of brachytherapy (~11/29/20) History of cardiac cath 2011 History of colonoscopy History of cystoscopy with stone basketing History of left cataract surgery History of radical neck dissection for SCC History of tonsillectomy Hx of heart artery stent x2 (2011) Hx of inguinal hernia repair Left Family History Father Heart disease Mother FH: kidney cancer Breast cancer Other No family history of adverse response to anesthesia Denies family history of Prostate cancer Colorectal cancer Social History Smoking Status: Former smoker Tobacco Type: Cigarettes Age Started Using Tobacco: 17; Age Quit Using Tobacco: 55; packs per day: 1; Years Smoked: 38; Second Hand Exposure: No; Hx Alcohol Use: No Hx Substance Use: No Preferred Language: Swazi Communication Ability: Effective Visual Impairment: No Limitations Hearing Ability: Normal Prep Room Supervisor Required: No Beliefs That Will Affect Care: None marital status: Current Living Situation: Family Current Living Situation Comment: Lives at home with daughter and grandchildren current occupational status: employed How many Children do You have: 2 Feels Safe at Home: Yes Childhood Exposure to Second-Hand Smoke: Yes Diet Comment: sweat glands destroyed with RT, must drink water constantly and moisturize caffeine: Yes (tea 3 cups per day) during the past year weight has: remained stable Dental Care, Regularly: Yes Physical Activity Frequency: 3-4 Times per Week Physical Activity Frequency Comment: climbs stairs 300/day Seatbelt Use: always Sunscreen Use: Yes (irregularly, but stays out of the sun for the most part) Assistive Devices: Glasses Review of Systems Review of Systems: All systems reviewed & are unremarkable except as noted in HPI & below Physical Exam Physical Exam: General: patient resting comfortably, NAD, non-toxic in appearance, AA&O x 4 Skin: warm, dry, intact, no rashes or lesions HEENT: NC/AT, PERRL, EOMI, anicteric sclera, conjunctiva without injection, external ear normal to inspection and nontender, nares patent, moist mucus membranes, dentition intact, no oropharyngeal lesions, neck supple, postsurgical changes to the right neck,, trachea midline, no LAD, no thyromegaly, no JVD Heart: +S1/S2, regular, no m/r/g Lungs: equal air entry bilaterally, no rales/rhonchi/wheezes Abd: +BS, soft, NT/ND, no masses/organomegaly/ascites Ext: warm, 2+ pulses in UE/LE bilaterally, no clubbing/cyanosis or edema Neuro: nonfocal, patient AA&O x 4, speech intact, no facial droop, moving all extremities on command with equal strength 5/5 Results & Data Results & Data ([facility]) Vital Signs (Past 12 Hours) Vital Signs Temp Pulse Resp BP Pulse Ox O2 Del Method 07/07/22 00:00 71 13 150/100 H 97 Room Air 07/06/22 23:05 75 24 171/102 H 99 Room Air 07/06/22 22:07 36.9 C 72 24 180/91 H 97 Room Air Laboratory Results Laboratory Results WBC 5.10 K/ul (4.8-10.8) 07/06/22 22:20 RBC 4.77 M/uL (4.63-6.08) 07/06/22 22:20 Hgb 13.9 g/dl (14.0-18.0) L 07/06/22 22:20 Hct 41.3 % (40.1-51.0) 07/06/22 22:20 MCV 86.6 fL (80.0-100.0) 07/06/22 22:20 MCH 29.1 pg (25.0-34.0) 07/06/22 22:20 MCHC 33.7 g/dL (32.0-36.0) 07/06/22 22:20 RDW Std Deviation 40.5 fL (36.4-46.3) 07/06/22 22:20 RDW Coeff of Maikel 12.8 % (11.5-14.5) 07/06/22 22:20 Plt Count 164 K/uL (130-400) 07/06/22 22:20 MPV 10.7 fL (9.4-12.4) 07/06/22 22:20 Immature Gran % (Auto) 0.4 % 07/06/22 22:20 Neut % (Auto) 57.9 % 07/06/22 22:20 Lymph % (Auto) 29.0 % 07/06/22 22:20 [place] % (Auto) 8.4 % 07/06/22 22:20 Eos % (Auto) 3.7 % 07/06/22 22:20 Baso % (Auto) 0.6 % 07/06/22 22:20 Neut # (Auto) 2.95 K/uL (1.4-6.5) 07/06/22 22:20 Lymph # (Auto) 1.48 K/uL (1.2-3.4) 07/06/22 22:20 [place] # (Auto) 0.43 K/uL (0.24-0.82) 07/06/22 22:20 Eos # (Auto) 0.19 K/uL (0-0.50) 07/06/22 22:20 Baso # (Auto) 0.03 K/uL (0-0.2) 07/06/22 22:20 Immature Gran # (Auto) 0.02 K/uL (0.00-0.02) 07/06/22 22:20 Sodium 140 mmol/L (136-145) 07/06/22 22:20 Potassium 3.7 mmol/L (3.5-5.1) 07/06/22 22:20 Chloride 105 mmol/L (98-107) 07/06/22 22:20 Carbon Dioxide 28 mmol/L (21-32) 07/06/22 22:20 Anion Gap 7 (3-11) 07/06/22 22:20 BUN 11 mg/dl (6-23) 07/06/22 22:20 Creatinine 0.96 mg/dl (0.6-1.4) 07/06/22 22:20 Est Cr Clr Drug Dosing 68.3 ml/min 07/06/22 22:20 Est GFR ( Amer) 95.1 ml/min 07/06/22 22:20 Est GFR (Non-Af Amer) 82.0 ml/min 07/06/22 22:20 BUN/Creatinine Ratio 11.5 (10-20) 07/06/22 22:20 Glucose 106 mg/dl (70-99(Fasting)) H 07/06/22 22:20 Calcium 9.8 mg/dl (8.5-10.1) 07/06/22 22:20 Total Bilirubin 0.6 mg/dl (0.2-1.0) 07/06/22 22:20 AST 21 U/L (13-39) 07/06/22 22:20 ALT 29 U/L (7-52) 07/06/22 22:20 Alkaline Phosphatase 98 U/L (34-104) 07/06/22 22:20 Troponin I High Sens 8.6 pg/ml (0-20) 07/06/22 22:20 Total Protein 6.6 gm/dl (6.0-8.3) 07/06/22 22:20 Albumin 4.4 gm/dl (3.4-5.0) 07/06/22 22:20 Globulin 2.2 gm/dl (2.5-4.0) L 07/06/22 22:20 Albumin/Globulin Ratio 2.0 (0.9-2) 07/06/22 22:20 Lipase 46 U/L (11-82) 07/06/22 22:20 SARS-CoV-2, RNA, NAAT NEGATIVE (NEGATIVE) 07/06/22 22:17 Diagnostic Findings Chest x-rayby my interpretation, no obvious infiltrate, pulmonary edema or pneumothorax. ECG Additional Comments: EKG shows normal sinus rhythm at 78 bpm, normal axis, VT = 170, QRS = 96, QTc = 440, T wave inversion present in 3, possibly aVF Code Status & VTE Plan VTE Prophylaxis Plan VTE Prophylaxis will be ordered: Yes PG Care Time/CCT Total # of Minutes Spent Total Time Spent with Patient: Total time spent is greater than 50% in coordination of care (as documented) at patient's floor/unit and/or counseling patient: Coding Level of Care Code INT OBSERVATION CARE 50M LVL 2 Diagnoses Chest pain R07.9 CAD (coronary artery disease) I25.10 Prostate cancer C61 Anxiety F41.9
[2022-07-07] MEDS ORDERED: ACETAMINOPHEN 325 MG TAB PO PRN (01:28)
[2022-07-07] MEDS ORDERED: NITROGLYCERIN SL 0.4 MG/TAB TAB SL PRN (01:28)
[2022-07-07 02:23] LABS: Magnesium 2.2 mg/dl (1.7-2.4)
[2022-07-07 02:26] LABS: Troponin I High Sensitivity 9.9 pg/ml (0-20)
[2022-07-07] MEDS ORDERED: BACLOFEN 10 MG TAB PO PRN (02:42)
--- NOTE | 2022-07-07 08:40 | XRay Report ---
XR chest 1V portable HISTORY: 67 years-old Male Chest Pain atypical chest pain COMPARISON: Chest radiograph 03/11/2021 TECHNIQUE: Portable AP view of the chest FINDINGS: Cardiac silhouette is mildly enlarged. Emphysema with mild chronic interstitial coarsening.. Surgical clip projects over the right lung base. No pneumothorax, pleural effusion, airspace consolidation or overt pulmonary edema. Bones of the chest appear grossly intact. IMPRESSION: Emphysema without acute process. ACT 112: Negative or not required by law. The above report was generated using voice recognition software. It may contain grammatical, syntax o r spelling errors. Electronically signed by: Josh Ray M.D. 07/07/2022 8:39 AM
--- NOTE | 2022-07-07 08:42 | Hospitalist Progress Note ---
Date of Service July 07, 2022 Assessment & Plan (1) Chest pain: Plan: Patient reports an episode on admission with palpitations, substernal chest discomfort, tingling in his fingers, lightheadedness and near syncope. Possibly vasovagal in nature given description of prodrome. Patient has prior history of syncope. Episodes seem to have a similar prodrome, tunnel vision as well as lightheadedness, resolved with sitting troponin normal x 3 Patient has description of orthostatic lightheadedness as well as symptomatic bradycardia at times. He has had outpatient cardiac monitoring in the past. will have stress echo in am 07/08/22 Is to have referral placed for vascular surgery regarding his carotid stenosis. 70% Right Common carotid stenonsis (2) CAD (coronary artery disease): Plan: Patient with history of ME in 2011 status post bare-metal stent x2 placed to the RCA. He did have moderate atherosclerosis in the LAD and left circumflex. He had some substernal chest tightness this evening which has since resolved. Troponin = 8.6->9.9->9.5, EKG with some T wave inversions present in inferior leads Telemetry monitoring troponin negative x 3 Continue aspirin, metoprolol, atorvastatin and losartan (3) Prostate cancer: Plan: Patient with history of prostate cancer. Most recent PSA from May 2022 normal annual PSA checks, Next check November 2022 (4) Anxiety: Plan: Ongoing. Patient reports having "a terrible decade" during which he was diagnosed with head and neck cancer and received surgery, radiation and chemotherapy. Subsequent diagnosis of prostate cancer as well as COVID-19 infection with associated PE. He seems to have significant anxiety regarding these health issues. Was previously on Ativan. Anxiety is being addressed with his PCP with ultimate plan to weaning off the Ativan and placing on SSRI. May also consider hydroxyzine as needed with caution for anticholinergic effects. Ppx - lovenox Code - Full Admission and Anticipated Discharge Date Admission Date: July 07, 2022 Subjective pt has a history of anxiety but did have concerns for some syncope associated with them he did have additional chest pain here and ecg at time without changes, Review of Systems Review of Systems: No distress does have anxiety and fatigue no headache, no visual changes no speech or swallowing issues 1 occasional recurrent chest pain, without pressure or palpitations no shortness of breath, cough or wheezes no abdominal pain, nausea or vomiting, diarrhea or constipation no dysuria, hematuria or frequency no focal joint pain or swelling no back pain, CVA tenderness or radicular pain no bruising, bleeding or rashes no focal signs of weakness or numbness or altered sensation no complaints of anxiety or depression.. Physical Exam Physical Exam: The patient appeared well nourished and normally developed. Vital signs as documented. Head exam is normocephalic atraumatic Neck is without JVD, thyromegaly, or carotid bruits. Lungs are clear to auscultation, no focal loss of breath sounds Cardiac exam, Rhythm is regular.. No murmurs, rubs or gallops. Abdominal exam reveals normal bowel sounds, soft non tender, no masses Extremities are nonedematous and both pedal pulses are present Neurologic exam is alert and oriented, no focal loss of strength or sensation Skin is without bruises or rashes Psychologically is without concerns for anxiety or depression.. Results & Data Results & Data ([facility]) Vital Signs (Past 12 Hours) Vital Signs Temp Pulse Pulse Resp BP BP Pulse Ox 07/07/22 07:17 97.9 F 63 18 130/74 97 07/07/22 06:08 80 07/07/22 01:47 97.9 F 74 18 169/99 H 97 07/07/22 00:30 67 12 160/98 H 97 07/07/22 00:00 71 13 150/100 H 97 07/06/22 23:05 75 24 171/102 H 99 07/06/22 22:07 98.4 F 72 24 180/91 H 97 O2 Del Method 07/07/22 07:17 Room Air 07/07/22 06:08 07/07/22 01:47 Room Air 07/07/22 00:30 Room Air 07/07/22 00:00 Room Air 07/06/22 23:05 Room Air 07/06/22 22:07 Room Air PG Care Time/CCT Total # of Minutes Spent Total Time Spent with Patient: Total time spent is greater than 50% in coordination of care (as documented) at patient's floor/unit and/or counseling patient: Coding Level of Care Code 16850 Subseq Obs Care Lvl 2 Diagnoses Chest pain R07.9 CAD (coronary artery disease) I25.10 Prostate cancer C61 Anxiety F41.9
[2022-07-07] MEDS ORDERED: CALCIUM CARBONATE 500 MG CHEWABLE TAB PO PRN (08:43)
[2022-07-07] MEDS: LORazepam 0.5 MG TAB PO PRN ×2 (09:26→20:16)
[2022-07-07] MEDS: METOPROLOL TARTRATE 25 MG TAB PO SCH ×2 (09:27→20:13)
[2022-07-07] MEDS: ASPIRIN 81 MG ECTAB PO SCH (09:27)
[2022-07-07] MEDS: ATORVASTATIN 40 MG TAB PO SCH (09:27)
[2022-07-07] MEDS: LOSARTAN POTASSIUM 25 MG TAB PO SCH (09:27)
[2022-07-07] MEDS: ENOXAPARIN INJ 40 MG/0.4 ML SYR SQ SCH (09:32)
[2022-07-07] MEDS ORDERED: LORazepam 0.5 MG TAB PO PRN (12:45)
[2022-07-07] MEDS: ONDANSETRON INJ 2 MG/ML 2 ML VIAL IV PRN ×2 (13:50→20:12)
--- NOTE | 2022-07-07 15:07 | Electrocardiogram Report ---
Test Reason : Blood Pressure : / mmHG Vent. Rate : 078 BPM Atrial Rate : 078 BPM P-R Int : 170 ms QRS Dur : 096 ms QT Int : 386 ms P-R-T Axes : 021 -18 -03 degrees QTc Int : 440 ms Poor data quality, interpretation may be adversely affected Normal sinus rhythm Nonspecific T wave abnormality When compared with ECG of 10-JAN-2022 21:12, Questionable change in QRS axis T wave inversion now evident in Inferior leads Confirmed by Danish Dhillon ([id number]) on 07/07/2022 3:07:24 PM Referred By: REFERRED SELF Confirmed By:Danish Dhillon
[2022-07-07] MEDS: CALCIUM CARBONATE 500 MG CHEWABLE TAB PO SCH ×2 (17:12→20:12)
[2022-07-07] MEDS ORDERED: TAMSULOSIN HCL 0.4 MG CAP PO SCH (21:00)
[2022-07-07] MEDS ORDERED: QUEtiapine FUMARATE 25 MG TABLET PO SCH (21:00)
[2022-07-08] MEDS: CALCIUM CARBONATE 500 MG CHEWABLE TAB PO SCH ×2 (08:14→13:09)
[2022-07-08] MEDS: ENOXAPARIN INJ 40 MG/0.4 ML SYR SQ SCH (08:15)
[2022-07-08] MEDS: ATORVASTATIN 40 MG TAB PO SCH (08:15)
[2022-07-08] MEDS: LOSARTAN POTASSIUM 25 MG TAB PO SCH (08:15)
[2022-07-08] MEDS: ASPIRIN 81 MG ECTAB PO SCH (08:15)
[2022-07-08 09:51] VITALS: TEMP 97.7
--- NOTE | 2022-07-08 10:19 | Electrocardiogram Report ---
Test Reason : Blood Pressure : / mmHG Vent. Rate : 071 BPM Atrial Rate : 071 BPM P-R Int : 168 ms QRS Dur : 098 ms QT Int : 384 ms P-R-T Axes : 024 -23 -09 degrees QTc Int : 417 ms Normal sinus rhythm Possible Left atrial enlargement Borderline ECG When compared with ECG of 06-JUL-2022 22:07, No significant change was found Confirmed by Ryan Gutierrez ([id number]) on 07/08/2022 10:18:50 AM Referred By: REFERRED SELF Confirmed By:Ryan Gutierrez
[2022-07-08] MEDS: METOPROLOL TARTRATE 25 MG TAB PO SCH (12:46)
--- NOTE | 2022-07-08 14:36 | XCELERA ---
[id number]
[2022-07-08 16:23] VITALS: BP 116/78; PULSE 94; O2SAT 96
--- NOTE | 2022-07-08 16:43 | Discharge Summary ---
Date of Service July 08, 2022 Admission HPI Per Admitting Provider Karthik Harris is a 67 yo male presenting with episode of dizziness and chest pressure. Patient with history of coronary artery disease status post stent x2, prior PE associated with COVID-19 infection, carotid artery stenosis (70% right internal carotid artery stenosis), head and neck cancer status post radical dissection, radiation and chemotherapy. He was watching a movie this evening around 1900 when he became lightheaded and dizzy. He had tingling in his fingers as well as palpitations and substernal chest pressure. He felt as if he was going to pass out. He took nitro x3 with some improvement. Symptoms have essentially resolved at this point. Patient with prior history of syncope. He reports blacking out in December 2021. He was hospitalized during this time and found to have a 70% occlusion of the right internal carotid artery. He follows with Dr. Iglesias and is to be referred to vascular surgery for management. He reports frequent episodes of presyncope, most recently last week while he was at work he felt as if he was going to pass out. He reports that his vision becomes tunneled and he becomes lightheaded. He sat down and the feelings passed. These episodes are anxiety provoking for him. He is active and works frequently in the yard. He denies exertional symptoms such as shortness of breath, dizziness, palpitations or chest pain. In the ER he is afebrile, hypertensive otherwise hemodynamically stable, no acute distress ER course: Aspirin 324 mg, Ativan 0.5 mg, nitro Principal Diagnosis chest pain and negative stress test low blood pressure maybe secondary to medicine Discharge Exam The patient appeared well nourished and normally developed. Vital signs as documented. Head exam is normocephalic atraumatic Neck is without JVD, thyromegaly, or carotid bruits. Lungs are clear to auscultation, no focal loss of breath sounds Cardiac exam, Rhythm is regular.. No murmurs, rubs or gallops. Abdominal exam reveals normal bowel sounds, soft non tender, no masses Extremities are nonedematous and both pedal pulses are present Neurologic exam is alert and oriented, no focal loss of strength or sensation Skin is without bruises or rashes Psychologically is without concerns for anxiety or depression.. Discharge Data Allergies Allergy/AdvReac Type Severity Reaction Status Date / Time pollen extracts Allergy Intermediate Watery Verified 07/07/22 00:34 eyes, burning sinsus, CONGESTION Hospital Course (1) Syncope: Syncope- did have some orthostatic issues when npo for stress and having taken losartan, improved with po intake The patient has a difficult balance between having appropriate oral intake due to side effects of severe xerostomia from radiation associated with right-sided head and neck cancer, Echocardiogram and stress test without concerns for cardiac issues, will recommend to stop losartan the newest med added to his home meds Carotid dopplers demonstrated 70% stenosis in the distal right common carotid artery, d/w vascular, can f/u as outpatient as he is considered "asymptomatic" since he did not have a cva/tia Serial trops have been negative x3, EKG nonacute (2) Acute dehydration: Acute on chronic dehydration- recommend good hydration (3) Head and neck cancer: As noted above, patient has undergone 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 (4) Prostate cancer: Prostate cancer status post radiation seed implant Patient continues have urinary frequency and urgency. He has has had an indwelling Davis catheter for up to 3 months in the past. He was on Flomax twice daily, but this was reduced to every other day due to syncope (5) Urinary retention: Patient reports that he has significant urinary retention if he misses his Flomax We will consult urology to try to help patient with his significant urinary retention and urinary frequency and urgency. There needs to be a balance found between his difficulty with keeping up with oral intake of fluids that he needs related to xerostomia associated with his head neck radiation treatments, and issues with his prostate cancer and radiation seed implants Appreciate urology input, UA collected, no evidence of UTI, Urology to arrange for outpatient follow up in the office (6) Myocardial infarct: History of myocardial infarction/hypertension/stented coronary artery Continue metoprolol tartrate 12.5 mg p.o. twice daily and aspirin 81 mg daily Ordered serial troponins which were negative x3 stress echo negative (7) History of coronary artery stent placement: See above (8) History of radical neck dissection: See above (9) COVID-19: Patient was admitted and treated for COVID-19 pneumonia from 03/03-03/13/2021, that he reports he recuperated completely from He has followed with pulmonology in the interim (10) Pulmonary embolism: Noted on CT of 03/07/2021 Patient has no tachypnea, tachycardia, hypoxia or other symptoms suggestive of a new PE (11) Carotid stenosis, asymptomatic: Incidentally found on carotid dopplers performed today d/t syncope Total Time Total Time Spent Total Time Spent (In Minutes): It required greater than 30 minutes to prepare this patient for discharge Discharge Plan Discharge Items Patient Disposition: Home - Self-Care Reason For Visit: DIZZINESS, PRE-SYNCOPE Discharge Diagnosis: negative stress test for heart strain low blood pressures possibly medication realted Activity: Resume your previous activity Non-emergency contact: Primary Care Provider Call non-emergency contact if: your symptoms worsen Follow-up/Referrals: Smitha Iglesias MD [Primary Care Provider] - Diet: Regular Addtl Attending Provider Instructions: keep well hydrated and stop your losartan, follow up with your primary care doctor, consider if symptoms continue to further reduce your flomax or have a referral to your urologist. Pending Studies at Discharge: No Stand-Alone Forms: My [facility] [employer], Smoking Cessation Medications and DC Order Prescriptions: Continued multivitamin Tablet 1 tab PO DAILY zinc 50 mg tablet 50 mg PO QAM lorazepam 0.5 mg tablet 0.5 mg PO DAILY PRN (Reason: Anxiety) 30 Days Qty: 30 2RF baclofen 10 mg tablet 10 mg PO TID PRN (Reason: Pain) aspirin 81 mg Tablet,Delayed Release (Dr/Ec) 81 mg PO QAM metoprolol tartrate 25 mg tablet 12.5 mg PO BID tamsulosin 0.4 mg capsule See Rx Instructions PO HS Rx Instructions: every other day orally at bedtime; atorvastatin 80 mg Tablet 80 mg PO QAM clotrimazole-betamethasone 1-0.05 % cream 1 applic TOPICAL TID PRN (Reason: ..) Discontinued losartan 25 mg tablet 25 mg PO DAILY 30 Days Qty: 30 5RF Discharge Orders: Discharge Order (Routine); Ordered 07/08/22 Ordered By: Carroll Sanabria Admission Data Admit Date/Time: 07/07/22 00:28 Attending Provider: Carroll Sanabria Admit Provider: Zi,Meggan M Primary Care Provider: Smitha Iglesias Coding Level of Care Code D/C DAY MANAGEMENT >30 MINS Diagnoses Syncope R55 Syncope type: unspecified Acute dehydration E86.0 Head and neck cancer C76.0 Prostate cancer C61 Urinary retention R33.9 Myocardial infarct I21.9 History of coronary artery stent placement Z95.5 History of radical neck dissection Z98.890 COVID-19 U07.1 Pulmonary embolism I26.99 Carotid stenosis, asymptomatic I65.29
== END 2022-07-08 17:42 | disposition home or self-care (01) ==
LOC: ED 21:44 → 2S 21:44 → SUATTDRO 07-07 00:28 → 2S 07-07 01:07 → 2W 07-08 09:23